=== PATIENT | male | born 1955 | race Caucasian/White ===

== ENCOUNTER 2016-06-27 15:00 | Outpatient (RCR) | payer BC | END 2016-07-16 | disposition home or self-care (01) | LOC: M OUTALCOH 15:00 | PROVIDERS: ATTEND Psychiatry & Neurology Psychiatry | DX: F10.20 Alcohol dependence, uncomplicated (principal) ==

== ENCOUNTER → 2016-08-29 | Outpatient (CLI) | payer BC ==
--- NOTE | 2016-08-30 04:21 | REP ---
Clinical: Lung screening. Technique: Axial low-dose noncontrast imaging from the thoracic inlet to the upper abdomen obtained and viewed in lung window settings only. Comparison: none. Findings: The bilateral lung spivey are symmetric, well aerated and relatively clear. Mild bibasilar scarring and subtle bronchiectasis noted. No significant pulmonary parenchymal consolidation, nodule or mass lesion appreciated. No obvious pleural effusion/reaction. Impression: Mild bibasilar scarring and bronchiectasis. No suspicious findings. Signed by Rl Montenegro MD 08/30/2016 04:13 A
== END ==
LOC: M RAD 12:00
PROVIDERS: ATTEND Emergency Medicine
DX: Z87.891 Personal history of nicotine dependence (principal); J47.9 Bronchiectasis, uncomplicated

== ENCOUNTER → 2016-10-30 | Outpatient (CLI) | payer BC | LOC: M OUTALCOH 08:05 | PROVIDERS: ATTEND Psychiatry & Neurology Psychiatry | DX: F10.20 Alcohol dependence, uncomplicated (principal) ==

== ENCOUNTER 2016-11-07 09:00 | Outpatient (RCR) | payer BC | END 2016-11-13 | LOC: M OUTALCOH 09:00 | PROVIDERS: ATTEND Psychiatry & Neurology Psychiatry | DX: F10.20 Alcohol dependence, uncomplicated (principal) ==

== ENCOUNTER 2016-12-12 14:00 | Outpatient (RCR) | payer BC | END 2016-12-13 | LOC: M OUTALCOH 14:00 | PROVIDERS: ATTEND Psychiatry & Neurology Psychiatry | DX: F10.20 Alcohol dependence, uncomplicated (principal) ==

== ENCOUNTER → 2017-01-13 | Outpatient (RCR) | payer BC, MEDICAID, OTHER | LOC: M OUTALCOH 12-30 15:08 | PROVIDERS: ATTEND Psychiatry & Neurology Psychiatry | DX: F10.20 Alcohol dependence, uncomplicated (principal) ==

== ENCOUNTER 2017-02-12 15:00 | Outpatient (RCR) | payer MEDICAID | END 2017-02-13 | LOC: M OUTALCOH 15:00 | PROVIDERS: ATTEND Psychiatry & Neurology Psychiatry | DX: F10.20 Alcohol dependence, uncomplicated (principal) ==

== ENCOUNTER 2017-03-13 13:00 | Outpatient (RCR) | payer MEDICAID, OTHER | END 2017-03-15 | LOC: M OUTALCOH 13:00 | PROVIDERS: ATTEND Psychiatry & Neurology Psychiatry | DX: F10.20 Alcohol dependence, uncomplicated (principal) ==

== ENCOUNTER 2017-05-12 16:00 | Outpatient (RCR) | payer MEDICAID | END 2017-05-15 | LOC: M OUTALCOH 16:00 | PROVIDERS: ATTEND Psychiatry & Neurology Psychiatry | DX: F10.20 Alcohol dependence, uncomplicated (principal) ==

== ENCOUNTER 2017-05-19 14:50 | Outpatient (RCR) | payer MEDICAID, OTHER | END 2017-06-15 | LOC: M OUTALCOH 14:50 | DX: F10.20 Alcohol dependence, uncomplicated (principal) ==

== ENCOUNTER 2017-06-18 10:43 | Outpatient (RCR) | payer MEDICAID | END 2017-07-16 | LOC: M OUTALCOH 07-16 15:00 | DX: F10.20 Alcohol dependence, uncomplicated (principal) ==

== ENCOUNTER → 2017-07-10 | Outpatient (CLI) | payer OTHER | LOC: M RAD 11:58 | DX: M79.621 Pain in right upper arm (principal) | CPT/HCPCS: 76882 ==

== ENCOUNTER 2017-07-30 15:00 | Outpatient (RCR) | payer OTHER | END 2017-08-13 | LOC: M OUTALCOH 08-07 10:00 | DX: F10.20 Alcohol dependence, uncomplicated (principal) ==

== ENCOUNTER → 2017-08-22 | Outpatient (REF) | payer OTHER ==
[2017-08-22 12:35] LABS: BASO % 0.7 % (0.0-1.0); EOS # 0.1 10^3/uL (0.0-0.50); EOS % 2.9 % (0.0-3.0); HEMATOCRIT 40.6 % (42.0-52.0); HEMOGLOBIN 13.6 g/dl (14.0-18.0); LYMPH # 1.1 10^3/uL (1.5-4.5); LYMPH % 41.3 % (24.0-44.0); MEAN CORPUSCULAR HEMOGLOBIN 30.7 pg (27.0-33.0); MEAN CORPUSCULAR HGB CONC 33.5 g/dl (32.0-36.5); MEAN CORPUSCULAR VOLUME 91.6 fl (80.0-96.0); MONO # 0.3 10^3/uL (0.0-0.8); MONO % 10.1 % (0.0-5.0); NEUTROPHILS # 1.2 10^3/uL (1.8-7.7); PLATELET COUNT, AUTOMATED 105 10^3/uL (150-450); RED BLOOD COUNT 4.43 10^6/uL (4.30-6.10); RED CELL DISTRIBUTION WIDTH 13.9 % (11.5-14.5); WHITE BLOOD COUNT 2.8 10^3/uL (4.0-10.0)
[2017-08-22 13:06] LABS: ALBUMIN 3.9 GM/DL (3.2-5.2); ALBUMIN/GLOBULIN RATIO 1.15 (1.00-1.93); ALKALINE PHOSPHATASE 75 U/L (45-117); ALT/SGPT 16 U/L (12-78); ANION GAP 6 MEQ/L (8-16); AST/SGOT 13 U/L (7-37); BILIRUBIN,TOTAL 0.7 MG/DL (0.2-1.0); BLOOD UREA NITROGEN 15 MG/DL (7-18); CALCIUM LEVEL 8.5 MG/DL (8.8-10.2); CARBON DIOXIDE LEVEL 27 MEQ/L (21-32); CHLORIDE LEVEL 109 MEQ/L (98-107); CHOLESTEROL LEVEL 216 MG/DL (<200); CHOLESTEROL RISK RATIO 5.684 (<5); CREATININE FOR GFR 0.83 MG/DL (0.70-1.30); GLOMERULAR FILTRATION RATE > 60.0 (>49); GLUCOSE, FASTING 93 MG/DL (70-100); HDL CHOLESTEROL 38 MG/DL (>40); LDL CHOLESTEROL 118.4 MG/DL (<100); NON-HDL-C 178 MG/DL; POTASSIUM SERUM 4.4 MEQ/L (3.5-5.1); SODIUM LEVEL 142 MEQ/L (136-145); TOTAL PROTEIN 7.3 GM/DL (6.4-8.2); TRIGLYCERIDES LEVEL 298 MG/DL (<150)
== END ==
LOC: M LABDRAW1 09:54
DX: J30.9 Allergic rhinitis, unspecified (principal)

== ENCOUNTER 2017-09-12 10:27 | Outpatient (RCR) | payer OTHER | END 2017-09-13 | LOC: M OUTALCOH 10:27 | DX: F10.20 Alcohol dependence, uncomplicated (principal) ==

== ENCOUNTER → 2017-09-29 | Outpatient (REF) | payer OTHER ==
[2017-09-29 10:35] LABS: RETIC HEMOGLOBIN EQUIVALENT 35.4 pg (24-36); RETICULOCYTE # 57.8 10^9/L (17-77); RETICULOCYTE % 1.4 % (0.5-1.5)
[2017-09-29 10:38] LABS: SLIDE REVIEW Report; SOURCE PERIPHERAL SMEAR
[2017-09-29 10:48] LABS: INR 0.93; PROTHROMBIN TIME 12.5 SECONDS (12.4-14.5)
[2017-09-29 10:49] LABS: PARTIAL THROMBOPLASTIN TIME 28.7 SECONDS (26.8-37.9)
[2017-09-29 10:51] LABS: URIC ACID 5.3 MG/DL (3.5-7.2)
[2017-09-29 10:56] LABS: HEPATITIS B SURFACE ANTIBODY NEGATIVE (POSITIVE); VITAMIN B12 LEVEL 372 PG/ML
[2017-09-29 11:06] LABS: HEPATITIS B SURFACE ANTIGEN NEGATIVE (NEGATIVE)
[2017-09-29 11:35] LABS: HEPATITIS B CORE ANTIBODY IGM NEGATIVE (NEGATIVE); HIV 1&2 SCREEN CENTAUR NEGATIVE (NEGATIVE)
== END ==
LOC: M LAB REF 09:50
DX: D61.818 Other pancytopenia (principal)

== ENCOUNTER → 2017-10-01 | Outpatient (CLI) | payer OTHER | LOC: M RAD 07:06 | DX: D61.818 Other pancytopenia (principal); R16.1 Splenomegaly, not elsewhere classified ==

== ENCOUNTER 2017-10-16 11:17 | Outpatient (RCR) | payer OTHER | END 2017-11-13 | LOC: M OUTALCOH 11:17 | DX: F10.20 Alcohol dependence, uncomplicated (principal) ==

== ENCOUNTER 2017-11-27 14:46 | Outpatient (RCR) | payer OTHER | END 2017-12-13 | LOC: M OUTALCOH 14:46 | DX: F10.20 Alcohol dependence, uncomplicated (principal) ==

== ENCOUNTER 2018-02-27 10:30 | Outpatient (RCR) | payer OTHER | END 2018-03-15 | LOC: M OUTALCOH 10:30 | DX: F10.20 Alcohol dependence, uncomplicated (principal) ==

== ENCOUNTER → 2018-12-14 | Outpatient (CLI) | payer OTHER ==
--- NOTE | 2018-12-14 08:28 | REP ---
Clinical: Lung screening. History of nicotine dependence. Comparison: 08/29/2016 Technique: Axial low-dose noncontrast images from the thoracic inlet to the upper abdomen using lung screening technique. Findings: The lung spivey are well-aerated and mild scattered chronic stable changes are again appreciated. There is a new 7 mm non solid density along the lateral subpleural right lower lobe (image 72) which is nonspecific but represents a change from prior examination. No pleural effusion/reaction or pneumothorax. Tracheobronchial tree is patent. Mediastinum demonstrates mild atherosclerotic changes of the coronary arteries without cardiomegaly. Impression: Lung-RADS category III. New 7 mm non solid right lower lobe density. Management recommendations include 6-month follow-up low-dose CT examination with a probability of malignancy at 1-2%. Electronically Signed by Rl Montenegro MD 12/14/2018 08:20 A
== END ==
LOC: M RAD 07:46
PROVIDERS: ATTEND Physician Assistant
DX: F17.210 Nicotine dependence, cigarettes, uncomplicated (principal); R91.1 Solitary pulmonary nodule

== ENCOUNTER → 2019-08-19 | Outpatient (REF) | payer OTHER ==
[2019-08-19 17:49] LABS: INR 1.11; PARTIAL THROMBOPLASTIN TIME 28.7 SECONDS (25.0-38.4)
== END ==
LOC: M LAB REF 17:01
PROVIDERS: ATTEND Internal Medicine Pulmonary Disease
DX: R91.1 Solitary pulmonary nodule (principal)

== ENCOUNTER → 2019-08-22 | Outpatient (CLI) | payer OTHER ==
[2019-08-22 11:49] LABS: PLATELET COUNT, AUTOMATED 114 10^3/uL (150-450)
== END ==
LOC: M LAB 11:32
PROVIDERS: ATTEND Internal Medicine Pulmonary Disease
DX: R91.1 Solitary pulmonary nodule (principal)

== ENCOUNTER → 2019-08-26 | Outpatient (CLI) | payer OTHER ==
[~2019-08-26] MED LIST: ALBU83IN NEB; ASPI81TA85 PO; BAYE325T13 PO; BREO1INH INH; INCR1INH INH; LEVOTAB10 PO; NAPR-885 PO; TRAZ-252 PO
--- NOTE | 2019-08-26 14:04 | PFTRPT ---
Site: [facility], [address] [place], [address] ID: [id number] Name: HEIDI KINCAID Visit Date: 08/26/2019 Second ID: [id number] Referring Doctor: Danielle JI, Roberto Morse Reviewing Doctor: Palomo Martinez MD Ag Service Manager: Raymon PELLETIER, IRAJ Age: 64 : 1955 Sex: Male Race: Height: 66.00 Inches Weight: 155.00 Lbs BSA: 1.79 Order IDs: [id number] Requested Test(s): <RESP-PFT.PFT B/A> Diagnosis: J44.9 test appear to be valid, although the ATS standard for "end of test" was not met. Pt was given four puffs of albuterol for postbronchodilator. Review Status: Not Reviewed Pre-Bronch Post-Bronch Pred Actual %Pred Actual %Chng SPIROMETRY FVC (L) 3.97 3.50 88 3.34 -4 FEV1 (L) 2.96 2.26 76 2.27 FEV1/FVC (%) 75 64 85 68 5 FEF 25% (L/sec) 6.53 4.19 64 4.61 9 FEF 50% (L/sec) 4.14 1.42 34 1.55 9 FEF 75% (L/sec) 1.16 0.39 33 0.34 -14 FEF 25-75% (L/sec) 2.38 1.19 49 1.08 -8 FEF Max (L/sec) 7.99 5.57 69 6.01 7 FIVC (L) 3.24 3.26 FIF 50% (L/sec) 4.60 5.02 109 6.73 34 FIF Max (L/sec) 5.03 6.84 36 MVV (L/min) 121 90 74 Expiratory Time (sec) 9.07 7.62 -16 Back Extrap Vol (L) 0.11 0.11 -1 Time To FEFmax (sec) 0.128 0.102 -20 LUNG VOLUMES SVC (L) 4.08 3.55 87 IC (L) 3.00 2.79 93 ERV (L) 1.08 0.76 70 TGV (L) 3.20 4.19 131 RV (Pleth) (L) 2.12 3.44 162 TLC (Pleth) (L) 6.20 6.99 112 RV/TLC (Pleth) (%) 34 49 144 DIFFUSION DLCOunc (ml/min/mmHg) 25.72 19.69 76 DLCOcor (ml/min/mmHg) 25.72 20.90 81 DL/VA (ml/min/mmHg/L) 4.15 4.11 99 VA (L) 6.20 5.08 81 BHT (sec) 10.64 IVC (L) 3.23 TLC (SB) (L) 5.23 AIRWAYS RESISTANCE Raw (cmH2O/L/s) 1.45 1.30 89 Gaw (L/s/cmH2O) 1.03 0.77 75 sRaw (cmH2O*s) 4.76 5.94 124 sGaw (1/cmH2O*s) 0.20 0.17 85 BLOOD GASES Hgb (gm/dL) 12.7
== END ==
LOC: M CARPUL 13:10
PROVIDERS: ATTEND Internal Medicine Pulmonary Disease
DX: J44.9 Chronic obstructive pulmonary disease, unspecified (principal)

== ENCOUNTER → 2019-08-27 | Outpatient (CLI) | payer OTHER ==
[~2019-08-27] MED LIST changes: +LIDOCAINE 1% MDV 20ML VIAL As Ordered ONE
--- NOTE | 2019-08-27 10:19 | REP ---
Chest x-ray: Single expiratory PA view. History: Status post CT guided needle biopsy right lung nodule. Comparison study September 02, 2006. Comparison chest CT study August 03, 2019. Findings: There is a very small post biopsy right sided pneumothorax. Approximately 5-10%. The soft tissue nodule is seen at the right base which is what is felt to be the target nodule. No hydrothorax is seen. Oxygen delivery tubing is noted. The patient is status post lower cervical spine fusion. Impression: 5-10% right-sided pneumothorax post CT guided needle biopsy procedure. Follow-up chest x-ray in 2 hours. Electronically Signed by Tyler Adames MD 08/27/2019 10:10 A
[2019-08-27 12:30] VITALS: BP 133/81
--- NOTE | 2019-08-27 13:10 | REP ---
Follow-up chest x-ray: PA view. 12:25 p.m. film History: Small post biopsy right sided pneumothorax for follow-up. Comparison study 10:04 a.m. on this date. Findings: A 5-10% the right-sided pneumothorax is again seen. This is slightly improved at the apex and felt to be unchanged where is visualized laterally. No new infiltrate is seen. No other abnormality. Impression: Small right-sided pneumothorax post biopsy unchanged from the film to half hours earlier. Electronically Signed by Tyler Adames MD 08/27/2019 01:02 P
--- NOTE | 2019-08-27 16:08 | REP ---
CT-guided right lower lobe lung biopsy The procedure is performed by MARILOU Alan, under the direct supervision of Dr. Adames. The risks and benefits of the procedure were explained to the patient and informed consent was obtained both orally and written. Directly prior to the start of the procedure, a formal timeout was done in the exam room. The right lower lobe lung nodule was localized using CT guidance. Skin was prepped and draped in the usual sterile fashion. 3 ml of 1% lidocaine 10 mg/ml was used as a local anesthetic. Using CT guidance a 19/20 gauge coaxial needle biopsy system was inserted and advanced into the nodule. 1 core biopsy samples was obtained and sent to the lab. Another set CT images were obtained revealing that the patient had a pneumothorax, and the procedure was aborted. The patient was followed with serial chest x-rays and monitored closely. After the appropriate amount of monitored convalescence the patient was still asymptomatic and discharged from the department with instructions that if anything should changed to go directly to the emergency room. Reviewed by MARILOU Davila 08/27/2019 02:50 P Electronically Signed by Tyler Adames MD 08/27/2019 03:58 P
== END ==
LOC: M IRPRO 08:03
PROVIDERS: ATTEND Internal Medicine Pulmonary Disease
DX: R91.1 Solitary pulmonary nodule (principal)

== ENCOUNTER → 2019-10-26 | Outpatient (CLI) | payer OTHER ==
[~2019-10-26] MED LIST changes: -LIDOCAINE 1% MDV 20ML VIAL As Ordered ONE
--- NOTE | 2019-10-27 10:16 | REP ---
PET/CT: HISTORY: Solitary pulmonary nodule. COMPARISONS: Comparison CT study of the chest August 03, 2019. TECHNIQUE: 56 minutes following the intravenous injection of a 8.67 mCi dose of F-18 FDG, three-dimensional PET scintigraphy is acquired from the skull base to the proximal thighs. Triplanar noncontrast CT scanning is acquired through the same anatomic range for attenuation correction, and image registration with scan parameters optimized to minimize radiation exposure to the patient. PET scintigraphy and CT datasets were fused and displayed on a workstation with multiplanar and projection display capability. PET/CT FINDINGS: There is no abnormal hypermetabolic uptake in the head and neck soft tissues. There is a focus of increased uptake centered on the left anterior mandible where there is a small radiolucency associated with a mandibular tooth. Maximum standard uptake value here is 9.72. This is felt to be compatible with dental or periodontal disease. The right lower lobe pulmonary nodule which has been seen on recent chest CT study is noted to be hypermetabolic. Maximum standard uptake value in this right lower lobe pulmonary nodule is 7.35. There is no abnormal hilar or mediastinal hypermetabolic uptake. No other abnormal parenchymal hypermetabolic uptake is seen. No other nodule is seen. No abnormal adrenal uptake is observed. In the abdomen and pelvis, there is normal distribution of tracer to the liver, spleen, gastrointestinal, and genitourinary tracts. No abnormal abdominal or pelvic hypermetabolic uptake is seen. There is some vascular calcification. The patient is status post cervical spine fusion. There is normal variant skeletal muscle uptake about the hips. IMPRESSION: The right lower lobe pulmonary nodule is hypermetabolic and suspicious for malignancy. There is a focus of increased uptake in the left mandible which is believed to be associated with a dental or periodontal process. Clinical correlation suggested. Otherwise negative PET scintigraphy. Electronically Signed by Tyler Adames MD 10/27/2019 10:58 A
== END ==
LOC: M PLARAD 14:27
PROVIDERS: ATTEND Internal Medicine Pulmonary Disease
DX: R91.1 Solitary pulmonary nodule (principal)
CPT/HCPCS: 78815; A9552

== ENCOUNTER → 2019-12-08 | Outpatient (CLI) | payer OTHER ==
[~2019-12-08] MED LIST changes: +ATOR40TA75 PO; +PERCOCET PO
[2019-12-08 14:06] LABS: ABG BASE EXCESS -0.2 (-2.0-2.0); ABG HCO3 23.6 MEQ/L (22.0-26.0); ABG O2 SATURATION 97.3 % (95.0-99.0); ABG PARTIAL PRESSURE CO2 35.6 mmHg (35.0-45.0); ABG PARTIAL PRESSURE O2 93.2 mmHg (75.0-100.0); ABG STANDARD HCO3 24.4 MEQ/L (22.0-26.0); ABG TOTAL CO2 24.7 MEQ/L (23.0-31.0); ABG pH (ARTERIAL) 7.439 UNITS (7.350-7.450)
[2019-12-08 14:24] LABS: INR 1.17; PROTHROMBIN TIME 14.6 SECONDS (11.8-14.0)
[2019-12-08 14:31] LABS: BLOOD UREA NITROGEN 16 MG/DL (7-18); CALCIUM LEVEL 8.6 MG/DL (8.8-10.2); CARBON DIOXIDE LEVEL 28 MEQ/L (21-32); CHLORIDE LEVEL 106 MEQ/L (98-107); CREATININE FOR GFR 0.97 MG/DL (0.70-1.30); GLOMERULAR FILTRATION RATE > 60.0 (>49); GLUCOSE, FASTING 92 MG/DL (70-100); POTASSIUM SERUM 4.4 MEQ/L (3.5-5.1); SODIUM LEVEL 137 MEQ/L (136-145)
[2019-12-08 14:46] LABS: APPEARANCE, URINE CLOUDY (CLEAR); BACTERIA, URINE AUTO NEGATIVE (NEGATIVE); BILIRUBIN, URINE AUTO NEGATIVE (NEGATIVE); BLOOD, URINE BLOOD NEGATIVE (NEGATIVE); COLOR, URINE YELLOW (YELLOW); GLUCOSE, URINE (UA) AUTO NEGATIVE (NEGATIVE); KETONE, URINE AUTO NEGATIVE (NEGATIVE); LEUKOCYTE ESTERASE, URINE AUTO NEGATIVE (NEGATIVE); NITRITE, URINE AUTO NEGATIVE (NEGATIVE); PROTEIN, URINE AUTO NEGATIVE (NEGATIVE); RBC, URINE AUTO 1 /HPF (0-3); SQUAMOUS EPITHELIAL CELL UR AU 0 /HPF (0-6); WBC, URINE AUTO 0 /HPF (0-3)
[2019-12-08 15:05] LABS: HEMATOCRIT 37.8 % (42.0-52.0); HEMOGLOBIN 12.7 g/dl (13.5-17.5); MEAN CORPUSCULAR HEMOGLOBIN 33.7 pg (27.0-33.0); MEAN CORPUSCULAR HGB CONC 33.6 g/dl (32.0-36.5); MEAN CORPUSCULAR VOLUME 100.3 fl (80.0-96.0); PLATELET COUNT, AUTOMATED 118 10^3/uL (150-450); RED BLOOD COUNT 3.77 10^6/uL (4.30-6.10); WHITE BLOOD COUNT 2.8 10^3/uL (4.0-10.0)
== END ==
LOC: EDSTATUS 13:00 → M ADMPAT 13:06
PROVIDERS: ATTEND Thoracic Surgery (Cardiothoracic Vascular Surgery)
DX: R91.8 Other nonspecific abnormal finding of lung field (principal)

== ENCOUNTER → 2019-12-11 | Outpatient (CLI) | payer OTHER | LOC: M LABSMTC 08:24 | PROVIDERS: ATTEND Anesthesiology | DX: Z11.59 Encounter for screening for other viral diseases (principal); Z03.89 Encounter for observation for other suspected diseases and conditions ruled out | CPT/HCPCS: C9803; U0003 ==

== ENCOUNTER 2019-12-14 07:00 | Inpatient (IN) | payer OTHER ==
--- NOTE | 2019-12-08 15:08 | REP ---
Chest x-ray: Two views. History: Lung lesion. Comparison chest x-ray: August 27, 2019. Findings: Nipple silhouettes project bilaterally. There is a nodular opacity in the right base unchanged measuring 12-13 mm. The previously noted right-sided pneumothorax has resolved. The lungs are overall hyperinflated as before. Heart is not enlarged. The cervical spine fusion plating is noted in place. Impression: Hyperinflation, COPD. Right lung base nodule. Electronically Signed by Tyler Adames MD 12/08/2019 02:59 P
--- NOTE | 2019-12-09 18:48 | ECGEPIP ---
[facility] Test Date: 2019-12-08 Pat Name: HEIDI KINCAID Department: Room: - Gender: Male Mobile Architect: : 1955 Requested By: Brendan Anderson Order Number: [id number] Reading MD: Angel Cast Measurements Intervals [place] Rate: 70 P: 78 [place]: 182 QRS: 50 QRSD: 85 T: 66 QT: 391 QTc: 424 Interpretive Statements SINUS RHYTHM POSSIBLE PRIOR SEPTAL INFARCT No prior tracing in the system Electronically Signed on 12-09-2019 18:47:57 EDT by Angel Cast
[~2019-12-14] VITALS: Ht 167.6 cm; Wt 68.9 kg
[2019-12-14] VITALS (14 sets, daily range): BP systolic 78–130; BP diastolic 40–68
[~2019-12-14 07:00] MED LIST changes: -ASPI81TA85 PO; +ASPI81TA86 PO; +LIDOCAINE 1% MDV 20ML VIAL SQ PRN; +LR 1,000 ML IV ONE; -PERCOCET PO
[2019-12-14] MEDS ORDERED: BUPIVACAINE LIPOSOME/PF 1.3% 20ML VIAL (13.3MG/ML)(EXPAREL)(C9290 PER1MG) As Ordered ONE (07:38)
[2019-12-14] MEDS ORDERED: BUPIVACAINE HCL 0.5% 30 ML VIAL As Ordered ONE (07:38)
[2019-12-14] MEDS ORDERED: CETACAINE SPRAY 5GM As Ordered ONE ×2 (07:38→09:43)
[2019-12-14] MEDS ORDERED: MUPIROCIN 2% OINT 22 GM TUBE TOP ONE (07:45)
[2019-12-14] MEDS ORDERED: ceFAZolin SOD 2 GM in IV 1 EA IV ONE (07:45)
[2019-12-14] MEDS ORDERED: MIDAZOLAM INJ 2MG/2ML VIAL (J2250 PER 1MG) As Ordered ONE ×2 (08:17→08:49)
[2019-12-14] MEDS ORDERED: fentaNYL 100 MCG/2 ML INJECTION (J3010) As Ordered ONE (08:17)
[2019-12-14] MEDS ORDERED: MIDAZOLAM INJ 2MG/2ML VIAL (J2250 PER 1MG) IV ONE (08:45)
[2019-12-14] MEDS ORDERED: fentaNYL 100 MCG/2 ML INJECTION (J3010) IV ONE (08:45)
[2019-12-14] MEDS ORDERED: fentaNYL 250 MCG/5 ML INJECTION (J3010) As Ordered ONE (08:49)
[2019-12-14] MEDS ORDERED: LIDOCAINE 2% 100MG/5ML SDV (FOR ANES.) As Ordered ONE (08:51)
[2019-12-14] MEDS ORDERED: propofoL 200 MG/20 ML VIAL As Ordered ONE (08:51)
[2019-12-14] MEDS ORDERED: dexameTHASONE 4 MG/ML 1ML VIAL (J1100 PER 1MG) As Ordered ONE (08:51)
[2019-12-14] MEDS ORDERED: ROCURONIUM BROMIDE 50 MG/5 ML VIAL As Ordered ONE ×4 (08:51→13:35)
[2019-12-14] MEDS ORDERED: METOCLOPRAMIDE INJ 10MG/2ML VIAL (J2765 PER 1) IV PRN (09:00)
[2019-12-14] MEDS ORDERED: NALOXONE INJ 0.4MG/1ML VIAL (J2310 PER 1MG) IV PRN (09:00)
[2019-12-14] MEDS ORDERED: EPIDURAL/PCA KEYS XX PRN (09:00)
[2019-12-14] MEDS ORDERED: WALLBOXKEY XX PRN (09:00)
[2019-12-14] MEDS ORDERED: diphenhydrAMINE 50MG/ML VIAL (J1200) IV PRN (09:00)
[2019-12-14] MEDS ORDERED: ONDANSETRON 4MG/2ML VIAL IV PRN ×2 (09:00→15:00)
[2019-12-14] MEDS ORDERED: BUPIVACAINE HCL 0.25% 30ML VIAL As Ordered ONE (09:02)
[2019-12-14] MEDS ORDERED: PHENYLephrine HCL 500 MCG/5 ML (100MCG/ML) SYRINGE (J2370) As Ordered ONE ×4 (09:35→14:13)
[2019-12-14] MEDS ORDERED: ePHEDrine SULFATE 25 MG/5 ML(5MG/ML) SYRINGE As Ordered ONE ×2 (09:35→10:29)
[2019-12-14] MEDS ORDERED: HYDROmorphone HCL 2 MG/ML 1ML VIAL (J1170) As Ordered ONE (10:11)
[2019-12-14] MEDS ORDERED: METOCLOPRAMIDE INJ 10MG/2ML VIAL (J2765 PER 1) As Ordered ONE (10:26)
[2019-12-14] MEDS ORDERED: ONDANSETRON 4MG/2ML VIAL As Ordered ONE (10:26)
[2019-12-14] MEDS ORDERED: SUGAMMADEX SODIUM 500 MG/5 ML VIAL (BRIDION) As Ordered ONE (10:26)
[2019-12-14] MEDS ORDERED: ACETAMINOPHEN 1000MG 100ML IV BTL (OFIRMEV) (J0131 PER 10MG) As Ordered ONE (10:27)
[2019-12-14] MEDS ORDERED: ACETAMINOPHEN TAB 650MG DOSE (2X325MG) PO PRN (14:15)
[2019-12-14] MEDS ORDERED: PERCOCET 5MG/325MG TAB PO PRN (14:15)
[2019-12-14] MEDS ORDERED: LEVALBUTEROL 1.25 MG/0.5 ML CONCENTRATE NEB NEB PRN (14:15)
[2019-12-14] MEDS ORDERED: NORCO, ANEXSIA 5/325MG TABLET (HYDROcodone/ACETAMINOPHEN) PO PRN (14:15)
[2019-12-14] MEDS ORDERED: BISACODYL 10 MG SUPP PR PRN (14:15)
[2019-12-14] MEDS: FENTANYL/BUPIVACAINE/NACL BAG 250 ML EPIDURAL SCH (14:32)
[2019-12-14] MEDS ORDERED: fentaNYL 100 MCG/2 ML INJECTION (J3010) IV PRN (15:00)
[2019-12-14] MEDS ORDERED: oxyCODONE 5MG TAB PO PRN (15:00)
[2019-12-14] MEDS ORDERED: HYDROMORPHONE HCL 0.5 MG/ 0.5 ML SYRINGE (J1170 PER 1) IV PRN (15:00)
[2019-12-14] MEDS ORDERED: LR 1,000 ML IV SCH (15:00)
[2019-12-14] MEDS: KCL 20MEQ IN D5/NS 1000ML 1,000 ML IV SCH (15:08)
--- NOTE | 2019-12-14 15:08 | REP ---
Clinical: Status post right lower lobectomy. Comparison: 12/08/2019. Findings: Two right-sided chest tubes and postsurgical changes are appreciated including small amount of right-sided subcutaneous emphysema. No focal consolidation. No effusion. No obvious pneumothorax. Mediastinum and cardiac silhouette are relatively normal. Skeletal structures are intact. Impression: Postsurgical changes involving the right hemithorax. Electronically Signed by Rl Montenegro MD 12/14/2019 02:59 P
[2019-12-14 15:10] LABS: ABG BASE EXCESS -3.3 (-2.0-2.0); ABG HCO3 23.2 MEQ/L (22.0-26.0); ABG O2 SATURATION 92.5 % (95.0-99.0); ABG PARTIAL PRESSURE CO2 47.2 mmHg (35.0-45.0); ABG PARTIAL PRESSURE O2 71.3 mmHg (75.0-100.0); ABG STANDARD HCO3 21.6 MEQ/L (22.0-26.0); ABG TOTAL CO2 24.7 MEQ/L (23.0-31.0)
[2019-12-14 15:12] LABS: BASO % 0.4 % (0.0-1.0); HEMATOCRIT 41.2 % (42.0-52.0); HEMOGLOBIN 13.8 g/dl (13.5-17.5); LYMPH # 0.3 10^3/uL (1.5-5.0); MEAN CORPUSCULAR HEMOGLOBIN 33.5 pg (27.0-33.0); MEAN CORPUSCULAR HGB CONC 33.5 g/dl (32.0-36.5); MONO # 0.1 10^3/uL (0.0-0.8); MONO % 3.4 % (0.0-5.0); NEUTROPHILS # 2.2 10^3/uL (1.5-8.5); NEUTROPHILS % 82.8 % (36.0-66.0); PLATELET COUNT, AUTOMATED 121 10^3/uL (150-450); RED BLOOD COUNT 4.12 10^6/uL (4.30-6.10); WHITE BLOOD COUNT 2.6 10^3/uL (4.0-10.0)
[2019-12-14 15:43] LABS: BLOOD UREA NITROGEN 11 MG/DL (7-18); CALCIUM LEVEL 9.5 MG/DL (8.8-10.2); CARBON DIOXIDE LEVEL 25 MEQ/L (21-32); CHLORIDE LEVEL 108 MEQ/L (98-107); CREATININE FOR GFR 1.01 MG/DL (0.70-1.30); GLOMERULAR FILTRATION RATE > 60.0 (>49); GLUCOSE, FASTING 163 MG/DL (70-100); POTASSIUM SERUM 4.7 MEQ/L (3.5-5.1); SODIUM LEVEL 138 MEQ/L (136-145)
[2019-12-14] MEDS: KETOROLAC 30 MG/ML 1ML VIAL IV SCH ×2 (15:50→20:38)
[2019-12-14] MEDS: ceFAZolin SOD 1 GM in D5W MINI-BAG PLUS 50 ML IV SCH (17:43)
[2019-12-14] MEDS: LEVALBUTEROL 1.25 MG/0.5 ML CONCENTRATE NEB NEB SCH (20:00)
[2019-12-14] MEDS: traZODone 50 MG TAB PO SCH (20:37)
[2019-12-14] MEDS: DOCUSATE SODIUM 100 MG CAP PO SCH (20:37)
[2019-12-14] MEDS: HEPARIN SOD (PORCINE) 5000UNITS/ML 1ML VIAL/SYRINGE SC SCH (20:38)
[2019-12-14] MEDS ORDERED: NS 500 ML IV ONE (22:15)
[2019-12-14] MEDS ORDERED: PHENYLEPHRINE HCL INJ 50 MG in D5W 495 ML IV SCH (23:15)
[2019-12-14 23:43] LABS: HEMATOCRIT 32.3 % (42.0-52.0); MEAN CORPUSCULAR HEMOGLOBIN 33.7 pg (27.0-33.0); MEAN CORPUSCULAR HGB CONC 33.7 g/dl (32.0-36.5); PLATELET COUNT, AUTOMATED 101 10^3/uL (150-450); RED BLOOD COUNT 3.23 10^6/uL (4.30-6.10); WHITE BLOOD COUNT 3.1 10^3/uL (4.0-10.0)
[2019-12-14 23:49] LABS: HEMOGLOBIN 10.9 g/dl (13.5-17.5)
[2019-12-15] VITALS (63 sets, daily range): BP systolic 100–143; BP diastolic 52–82
[2019-12-15] MEDS: LEVALBUTEROL 1.25 MG/0.5 ML CONCENTRATE NEB NEB SCH ×4 (01:41→19:12)
[2019-12-15] MEDS: ceFAZolin SOD 1 GM in D5W MINI-BAG PLUS 50 ML IV SCH ×3 (01:56→17:08)
[2019-12-15] MEDS: KETOROLAC 30 MG/ML 1ML VIAL IV SCH ×4 (01:57→20:19)
[2019-12-15] MEDS ORDERED: NS 500 ML IV ONE (02:15)
[2019-12-15] MEDS: KCL 20MEQ IN D5/NS 1000ML 1,000 ML IV SCH (02:26)
[2019-12-15 05:18] LABS: BASO % 0.2 % (0.0-1.0); HEMOGLOBIN 11.3 g/dl (13.5-17.5); LYMPH # 1.4 10^3/uL (1.5-5.0); LYMPH % 32.7 % (24.0-44.0); MEAN CORPUSCULAR HEMOGLOBIN 33.8 pg (27.0-33.0); MEAN CORPUSCULAR HGB CONC 33.2 g/dl (32.0-36.5); MEAN CORPUSCULAR VOLUME 101.8 fl (80.0-96.0); MONO # 1.1 10^3/uL (0.0-0.8); MONO % 24.4 % (0.0-5.0); NEUTROPHILS # 1.8 10^3/uL (1.5-8.5); NEUTROPHILS % 42.5 % (36.0-66.0); RED BLOOD COUNT 3.34 10^6/uL (4.30-6.10); WHITE BLOOD COUNT 4.3 10^3/uL (4.0-10.0)
[2019-12-15 05:26] LABS: PLATELET COUNT, AUTOMATED 117 10^3/uL (150-450)
[2019-12-15 05:39] LABS: BLOOD UREA NITROGEN 12 MG/DL (7-18); CALCIUM LEVEL 7.7 MG/DL (8.8-10.2); CARBON DIOXIDE LEVEL 26 MEQ/L (21-32); CHLORIDE LEVEL 109 MEQ/L (98-107); CREATININE FOR GFR 0.71 MG/DL (0.70-1.30); GLOMERULAR FILTRATION RATE > 60.0 (>49); GLUCOSE, FASTING 123 MG/DL (70-100); POTASSIUM SERUM 4.2 MEQ/L (3.5-5.1); SODIUM LEVEL 139 MEQ/L (136-145)
[2019-12-15 05:55] LABS: ABG BASE EXCESS -2.9 (-2.0-2.0); ABG HCO3 20.9 MEQ/L (22.0-26.0); ABG O2 SATURATION 98.1 % (95.0-99.0); ABG PARTIAL PRESSURE CO2 33.1 mmHg (35.0-45.0); ABG PARTIAL PRESSURE O2 106.7 mmHg (75.0-100.0); ABG STANDARD HCO3 22.1 MEQ/L (22.0-26.0); ABG TOTAL CO2 21.9 MEQ/L (23.0-31.0); ABG pH (ARTERIAL) 7.418 UNITS (7.350-7.450)
[2019-12-15] MEDS: TIOTROPIUM INHALER/CAPSULE (SPIRIVA) INH SCH (07:02)
--- NOTE | 2019-12-15 08:14 | REP ---
Clinical: Status post right lower lobectomy. Comparison: 12/14/2019. Findings: Two right-sided chest tubes and right-sided postsurgical changes are appreciated including moderate amount of subcutaneous emphysema along the right lateral chest wall and thoracic inlet/neck. Underlying right parenchyma appears relatively normal and without obvious consolidation, effusion, or pneumothorax. Mediastinum and cardiac silhouette are normal. Left hemithorax is clear. Impression: Postsurgical changes involving the right hemithorax. Electronically Signed by Rl Montenegro MD 12/15/2019 08:06 A
--- NOTE | 2019-12-15 08:48 | REP ---
Clinical: Status post right lower lobectomy. Technique: PA and lateral. Comparison: 12/14/2019. Findings: Two right-sided chest tubes are in stable position. Moderate subcutaneous emphysema along the right hemithorax may be slightly increased from prior examination. Aerated right lung appears relatively normal and without significant areas of consolidation/atelectasis or pleural effusion. A very small right apical pneumothorax cannot definitively be excluded. Mediastinum and cardiac silhouette are normal. Left hemithorax is relatively clear and without acute consolidation, effusion, or pneumothorax. Skeletal structures are intact. Impression: Postsurgical changes involving the right hemithorax as described above. Electronically Signed by Rl Montenegro MD 12/15/2019 08:39 A
[2019-12-15] MEDS: HEPARIN SOD (PORCINE) 5000UNITS/ML 1ML VIAL/SYRINGE SC SCH ×2 (08:54→20:18)
[2019-12-15] MEDS: ATORVASTATIN 20 MG TAB PO SCH (08:55)
[2019-12-15] MEDS: MOM 30ML SUSPENSION UDC PO SCH (08:55)
[2019-12-15] MEDS: PANTOPRAZOLE 40MG TAB (PROTONIX) PO SCH (09:03)
[2019-12-15] MEDS: DOCUSATE SODIUM 100 MG CAP PO SCH ×2 (09:03→20:17)
--- NOTE | 2019-12-15 10:19 | IPN ---
DATE: 12/15/2019 This is now the first postoperative day for Mr. Weaver who has had a relatively stable night of surgery. He did become hypotensive and he was given both volume and phenylephrine was started to counteract the epidural. Furthermore, epidural was lowered to 6 mL/hr from 10 mL/hr. Today, Mr. Weaver is doing well. He has been weaned off his Leandro-Synephrine and his blood pressure has renormalized. His pain is well controlled with the epidural, although he does complain of some shoulder pain. His vital signs show a Tmax of 98.6, with a heart rate that ranges between 70 and 79 in a sinus rhythm, a respiratory rate of 18-20 without the use of accessory muscles, who was 99% to 100% saturated on 2 liters nasal cannula and 96% saturated now on room air. His blood pressure is ranging between 116/68 to 132/74. Last night, it got down to a low of 86/50. His intake and output the past 24 hours has been recorded as 2830 in and 1032 out for a positivity of 1798 mL. He has taken in 1150 mL in oral intake and 1000 mL in IV. His chest tube has put out 340 mL with his urine output being 517 mL. His weight today is 73 kg compared to 66 kg preoperatively. On physical examination, his lungs show coarse crackles with rhonchi on both sides which do not clear with coughing. Percussion note is full to the diaphragm. There is some palpable subcutaneous emphysema. Cardiac Exam: Without murmurs, clicks, gallops, or rubs. I cannot feel his point of maximal impulse (PMI). S1, S2 are normal. Abdomen: Soft. Nontender. Bowel sounds are positive, but hypoactive. He is tympanitic and slightly distended. There is no hepatomegaly. No costovertebral angle (CVA) tenderness. Extremities: Show no pretibial edema. No calf tenderness. No differential swelling of the upper extremities. Skin: Warm, dry and perfused. Without cyanosis or mottling, including that of the nail beds and knees. Neck: Supple. There is no jugular venous distention. No subcutaneous emphysema. Trachea is midline. Mouth: Shows his mucous membranes to be pink and moist. Lips and commissures are without lesions. There is no thrush. Eyes: Show his pupils to be equal and reactive. Extraocular movements intact. Sclerae nonicteric. Neurologic: Shows II-XII intact along with gross motor and gross sensation intact. Gait is not tested. Psychiatric shows him to be awake, alert, and oriented times three with appropriate mood and affect and conversational. His white count today is 4.3 with hemoglobin and hematocrit of 11.3 and 34.0, probably secondary to hemodilution from a recovery room hemoglobin/hematocrit of 13.8/41.2. Platelet count is 117. Differential shows 42% neutrophils, 32% lymphocytes, 24% monocytes. There are no immature forms and no toxic granulations. His electrolytes are essentially normal with a BUN and creatinine of 12 and 0.71 and a glucose of 123 and calcium of 7.7. His blood gas today shows a pH of 7.41, a pCO2 of 33, a pO2 of 106, on 2 liters nasal cannula with a base excess of -2.9. His chest x-ray today shows a small apical cap in the right hemithorax. There is obligate volume loss from the lobectomy. There is some subcutaneous emphysema along the lateral chest wall. The costophrenic angles are sharp. I see no infiltrates. Chest tubes are in good place and there are no posterior infiltrates on the lateral film. IMPRESSION: 1. Clinical I A2 squamous cell carcinoma, final pathology pending. 2. Postoperative day #1 status post right lower lobectomy. 3. Pancytopenia, unknown origin. 4. Chronic obstructive pulmonary disease. 5. Former tobacco abuse. PLAN AND DISCUSSION: His blood pressure has now normalized and he is now off his phenylephrine. I will keep him in the intensive care unit one more day. Will discontinue his arterial line. His chest tube this morning had an air leak according to the nursing staff, I did not see one today. Will continue that on suction. Will of course await final pathology.
[2019-12-15] MEDS: FENTANYL/BUPIVACAINE/NACL BAG 250 ML EPIDURAL SCH (14:38)
[2019-12-15] MEDS ORDERED: FUROSEMIDE 20MG/2ML VIAL (J1940) IV ONE (16:00)
[2019-12-15] MEDS: traZODone 50 MG TAB PO SCH (20:18)
[2019-12-16] VITALS (7 sets, daily range): BP systolic 105–174; BP diastolic 57–84
[2019-12-16] MEDS: LEVALBUTEROL 1.25 MG/0.5 ML CONCENTRATE NEB NEB SCH ×4 (01:31→19:38)
[2019-12-16] MEDS: ceFAZolin SOD 1 GM in D5W MINI-BAG PLUS 50 ML IV SCH ×2 (02:09→10:00)
[2019-12-16] MEDS: KETOROLAC 30 MG/ML 1ML VIAL IV SCH ×4 (02:09→20:36)
[2019-12-16 04:52] LABS: HEMATOCRIT 32.7 % (42.0-52.0); HEMOGLOBIN 11.1 g/dl (13.5-17.5); MEAN CORPUSCULAR HEMOGLOBIN 34.3 pg (27.0-33.0); MEAN CORPUSCULAR HGB CONC 33.9 g/dl (32.0-36.5); MEAN CORPUSCULAR VOLUME 100.9 fl (80.0-96.0); RED BLOOD COUNT 3.24 10^6/uL (4.30-6.10); WHITE BLOOD COUNT 3.1 10^3/uL (4.0-10.0)
[2019-12-16 05:03] LABS: BLOOD UREA NITROGEN 12 MG/DL (7-18); CALCIUM LEVEL 7.6 MG/DL (8.8-10.2); CARBON DIOXIDE LEVEL 32 MEQ/L (21-32); CHLORIDE LEVEL 108 MEQ/L (98-107); CREATININE FOR GFR 0.86 MG/DL (0.70-1.30); GLOMERULAR FILTRATION RATE > 60.0 (>49); GLUCOSE, FASTING 99 MG/DL (70-100); SODIUM LEVEL 142 MEQ/L (136-145)
[2019-12-16 05:12] LABS: PLATELET COUNT, AUTOMATED 86 10^3/uL (150-450)
[2019-12-16 05:16] LABS: ATYPICAL LYMPH 4 % (0-5); LYMPHOCYTES 36 % (16-44); MONOCYTES 13 % (0-5); NEUTROPHILS 47 % (28-66)
[2019-12-16 05:17] LABS: PLATELET ESTIMATE DECREASED (NORMAL)
[2019-12-16] MEDS ORDERED: FUROSEMIDE 40MG/4ML VIAL (J1940) IV ONE (07:00)
[2019-12-16] MEDS: TIOTROPIUM INHALER/CAPSULE (SPIRIVA) INH SCH (07:36)
--- NOTE | 2019-12-16 08:30 | REP ---
Chest x-ray: Two views. History: Status post right lower lobectomy. Comparison chest x-ray: December 15, 2019. Findings: Two right-sided chest tubes remain in place. Monitoring electrodes are seen. There is soft tissue emphysema in the extrathoracic soft tissues on the right similar to the previous study. No new infiltrate. Cardiomediastinal silhouette is unchanged. Impression: Satisfactory postoperative chest x-ray. Two right chest tubes in place. Electronically Signed by Tyler Adames MD 12/16/2019 08:21 A
[2019-12-16] MEDS: DOCUSATE SODIUM 100 MG CAP PO SCH ×2 (08:50→20:36)
[2019-12-16] MEDS: MOM 30ML SUSPENSION UDC PO SCH (08:50)
[2019-12-16] MEDS: PANTOPRAZOLE 40MG TAB (PROTONIX) PO SCH (08:51)
[2019-12-16] MEDS: ATORVASTATIN 20 MG TAB PO SCH (08:51)
[2019-12-16] MEDS: FENTANYL/BUPIVACAINE/NACL BAG 250 ML EPIDURAL SCH (11:37)
--- NOTE | 2019-12-16 14:03 | IPN ---
DATE OF SERVICE: 12/16/2019 This is now the second postoperative day for Mr. Weaver, status post right lower lobectomy. His pain is being fairly well controlled, and his vital signs are stable. I have informed him that he is stage IA2 squamous cell carcinoma with all nodes negative. His vital signs show a maximum temperature (Tmax) of 101.0, now 97.7. Heart rate ranges between 84 and 94 in a sinus rhythm, a respiratory rate of 18-22 without the use of accessory muscles, who is 93% to 90% saturated on room air, and whose blood pressure is ranging between 147/82 to 105/65. His intake and output over the past 24 hours has been recorded as 3952 in and 2510 out for a positivity of 1442 mL. He has put out a total of 775 mL out of the chest tube, and it is sanguinous but does not look like filipe blood. In the last 12 hours, he has put out 135 mL, and there is no air leak. His weight today is 72.3 kg compared to 73 kg yesterday. He has put out 1735 mL in urine. The IV had been discontinued. On physical examination, he has coarse rhonchi throughout both lungs, most of which clear with coughing. Percussion note is full to the diaphragm. Cardiac examination: Is without murmurs, clicks, gallops, or rubs. I cannot feel his point of maximal impulse (PMI). S1, S2 are normal. Abdomen: Soft. Nontender. Bowel sounds are positive. He is slightly tympanitic and distended. There is no hepatomegaly. No costovertebral angle (CVA) tenderness. Extremities: Show no pretibial edema. No calf tenderness. No differential swelling of the upper extremities. Skin: Warm, dry, and perfused. Without cyanosis or mottling, including that of the nail beds and the knees. Neck: Supple. There is no jugular venous distention. No subcutaneous emphysema. Trachea is midline. Mouth: Shows his mucous membranes to be pink and moist. Lips and commissures are without lesions. There is no thrush. Eyes: Show his pupils to be equal and reactive. Extraocular motions are intact. Sclerae anicteric. Neurologic: Shows II-XII intact, along with gross motor and gross sensation intact. Gait is not tested. Psychiatric shows him to be awake, alert, and oriented times three with appropriate mood and affect and conversational. His white count today is 3.1 with a hemoglobin and hematocrit of 11.1 and 32.7 slightly down from 11.3 and 34.0 yesterday. Platelet count is 86 down from 1.17. Differential shows 47% neutrophils, 36% lymphocytes, 13% monocytes. There are no immature forms and no toxic granulations. His electrolytes are essentially normal with a BUN and creatinine of 12 and 0.86, a glucose of 99, and a calcium of 7.6. His chest x-ray shows his lung fully expanded to the chest wall. Costophrenic angles are sharp, and there are no infiltrates. Chest tubes are in good place. There is obligate volume loss from the lobectomy. Lateral chest film does not show any posterior infiltrates. His pathology has been reported back as moderate to poorly differentiated squamous cell carcinoma with a tumor measurement of 1.5 cm in its greatest dimensions. All nodes are negative. This, however, makes him a [id number] or stage IA2. IMPRESSION: 1. Postoperative day #2, status post right lower lobectomy. 2. Pancytopenia. 3. Thrombocytopenia. 4. Stage IA2 squamous cell carcinoma. 5. Chronic obstructive pulmonary disease (COPD). 6. Former tobacco abuse. PLAN AND DISCUSSION: I will transfer him to progressive care unit (PCU) today. I will start to diurese him. I will also stop his heparin as his platelet count is decreasing. [facility]
[2019-12-16] MEDS: traZODone 50 MG TAB PO SCH (20:36)
[2019-12-17] VITALS: BP 150/83
[2019-12-17] MEDS: LEVALBUTEROL 1.25 MG/0.5 ML CONCENTRATE NEB NEB SCH ×4 (01:47→21:14)
[2019-12-17] MEDS: KETOROLAC 30 MG/ML 1ML VIAL IV SCH ×4 (02:56→20:24)
[2019-12-17 04:00] VITALS: BP 150/83
[2019-12-17] MEDS: FENTANYL/BUPIVACAINE/NACL BAG 250 ML EPIDURAL SCH (05:16)
[2019-12-17 05:24] LABS: BASO % 0.7 % (0.0-1.0); EOS % 1.4 % (0.0-3.0); HEMATOCRIT 32.3 % (42.0-52.0); HEMOGLOBIN 11.1 g/dl (13.5-17.5); LYMPH # 0.8 10^3/uL (1.5-5.0); LYMPH % 26.4 % (24.0-44.0); MEAN CORPUSCULAR HEMOGLOBIN 34.3 pg (27.0-33.0); MEAN CORPUSCULAR HGB CONC 34.4 g/dl (32.0-36.5); MEAN CORPUSCULAR VOLUME 99.7 fl (80.0-96.0); MONO # 0.5 10^3/uL (0.0-0.8); NEUTROPHILS # 1.6 10^3/uL (1.5-8.5); NEUTROPHILS % 55.2 % (36.0-66.0); RED BLOOD COUNT 3.24 10^6/uL (4.30-6.10); WHITE BLOOD COUNT 2.9 10^3/uL (4.0-10.0)
[2019-12-17 05:27] LABS: PLATELET COUNT, AUTOMATED 94 10^3/uL (150-450)
[2019-12-17 05:39] LABS: BLOOD UREA NITROGEN 9 MG/DL (7-18); CARBON DIOXIDE LEVEL 30 MEQ/L (21-32); CHLORIDE LEVEL 106 MEQ/L (98-107); CREATININE FOR GFR 0.76 MG/DL (0.70-1.30); GLOMERULAR FILTRATION RATE > 60.0 (>49); GLUCOSE, FASTING 106 MG/DL (70-100); POTASSIUM SERUM 4.2 MEQ/L (3.5-5.1); SODIUM LEVEL 141 MEQ/L (136-145)
[2019-12-17] MEDS: TIOTROPIUM INHALER/CAPSULE (SPIRIVA) INH SCH (07:56)
[2019-12-17 08:00] VITALS: BP 157/71
[2019-12-17] MEDS: MOM 30ML SUSPENSION UDC PO SCH (08:02)
[2019-12-17] MEDS: PANTOPRAZOLE 40MG TAB (PROTONIX) PO SCH (08:02)
[2019-12-17] MEDS: ATORVASTATIN 20 MG TAB PO SCH (08:03)
[2019-12-17] MEDS: DOCUSATE SODIUM 100 MG CAP PO SCH ×2 (08:03→20:24)
--- NOTE | 2019-12-17 08:22 | REP ---
Clinical: Status post right lower lobectomy. Technique: PA and lateral. Comparison: 12/16/2019. Findings: Two right-sided chest tubes and postsurgical changes involving the right hemithorax remain essentially stable. No new acute process identified. The mediastinum and cardiac silhouette along with the left hemithorax appear normal. Impression: Stable appearance to the right hemithorax. Electronically Signed by Rl Montenegro MD 12/17/2019 08:14 A
[2019-12-17] MEDS ORDERED: FUROSEMIDE 40MG/4ML VIAL (J1940) IV ONE (08:45)
[2019-12-17 12:00] VITALS: BP 142/71
[2019-12-17] MEDS: PERCOCET 5MG/325MG TAB PO PRN (12:11)
--- NOTE | 2019-12-17 12:44 | IPN ---
DATE: 12/17/2019 This is now the third postoperative day for Mr. Weaver. His epidural has fallen out, but his pain is being well controlled. He grades it between 2-3. His vital signs show a T-max of 99.2, with a heart rate that ranges between 80 and 82 in a sinus rhythm, a respiratory rate of 17-18 without the use of accessory muscles and who is 96% saturated on room air. His blood pressure is ranging between 173/81 to 127/65. His intake and output the past 24 hours has been recorded as 1519 in and 3135 out for a negativity of 1650 mL. He put 355 mL out the chest tube and there is no air leak. His weight today is 70.3 kg compared to 72.3 kg yesterday. On physical examination, he has some crackles in the right lower lobe with some squeaks consistent with the chest tube. Percussion note is full to the diaphragm. Cardiac exam is without murmurs, clicks, gallops or rubs. I cannot feel his PMI. S1, S2 are normal. Abdomen is soft, nontender. Bowel sounds are positive. There is no hepatomegaly. No CVA tenderness. Extremities show no pretibial edema. No calf tenderness. No differential swelling of the upper extremities. Skin is warm, dry and perfused, without cyanosis or mottling, including that of the nail beds and knees. Neck is supple. There is no jugular venous distention. No subcutaneous emphysema. Trachea is midline. Mouth shows his mucous membranes to be pink and moist. Lips and commissures are without lesions. There is no thrush. Eyes show his pupils to be equal and reactive. Extraocular movements are intact. Sclerae nonicteric. Neurologic shows II-XII intact along with gross motor and gross sensation intact. Gait is not tested. Psychiatric shows him to be awake, alert and oriented times three with appropriate mood and affect and conversational. His white count today is 2.9 with hemoglobin and hematocrit of 11.1 and 32.3, unchanged from yesterday, with a platelet count marginally higher at 94 from 86 yesterday. Differential shows 55% neutrophils 26% lymphocytes, 16% monocytes. There are no immature forms and no toxic granulations. His chemistries today show normal electrolytes with a BUN and creatinine of 9 and 0.76. Potassium is 4.2. Glucose is 106 with a calcium of 8.0. His chest x-ray shows the lung fully expanded to the chest wall. Chest tubes are in good place. There is obligate volume loss from the lobectomy. I see no infiltrates. IMPRESSION: 1. Postoperative day #3 status post right lower lobectomy. 2. Stage I A2 squamous cell carcinoma. 3. Pancytopenia. 4. Thrombocytopenia. 5. Chronic obstructive pulmonary disease. 6. Former tobacco use. PLAN AND DISCUSSION: I will discontinue his chest tube suction today. His epidural is now out and I will discontinue his Mane catheter. He is written for PCU orders, but has not yet been transferred secondary to bed space. I will also continue to diurese him today. Hopefully, he will be able to get the chest tube out tomorrow.
[2019-12-17 16:00] VITALS: BP 123/74
[2019-12-17 20:00] VITALS: BP 140/68
[2019-12-17] MEDS: traZODone 50 MG TAB PO SCH (20:25)
[2019-12-18] VITALS: BP 150/75
[2019-12-18] MEDS: LEVALBUTEROL 1.25 MG/0.5 ML CONCENTRATE NEB NEB SCH ×4 (01:31→20:36)
[2019-12-18] MEDS: KETOROLAC 30 MG/ML 1ML VIAL IV SCH ×4 (03:54→20:38)
[2019-12-18 04:00] VITALS: BP 138/65
[2019-12-18 06:03] LABS: BASO % 0.9 % (0.0-1.0); EOS # 0.1 10^3/uL (0.0-0.5); EOS % 2.3 % (0.0-3.0); HEMATOCRIT 33.8 % (42.0-52.0); HEMOGLOBIN 11.3 g/dl (13.5-17.5); LYMPH # 0.7 10^3/uL (1.5-5.0); MEAN CORPUSCULAR HEMOGLOBIN 33.7 pg (27.0-33.0); MEAN CORPUSCULAR HGB CONC 33.4 g/dl (32.0-36.5); MEAN CORPUSCULAR VOLUME 100.9 fl (80.0-96.0); MONO # 0.3 10^3/uL (0.0-0.8); MONO % 15.6 % (0.0-5.0); NEUTROPHILS % 47.7 % (36.0-66.0); RED BLOOD COUNT 3.35 10^6/uL (4.30-6.10); WHITE BLOOD COUNT 2.2 10^3/uL (4.0-10.0)
[2019-12-18 06:06] LABS: PLATELET COUNT, AUTOMATED 98 10^3/uL (150-450)
[2019-12-18 06:27] LABS: BLOOD UREA NITROGEN 11 MG/DL (7-18); CARBON DIOXIDE LEVEL 30 MEQ/L (21-32); CHLORIDE LEVEL 106 MEQ/L (98-107); CREATININE FOR GFR 0.75 MG/DL (0.70-1.30); GLOMERULAR FILTRATION RATE > 60.0 (>49); GLUCOSE, FASTING 100 MG/DL (70-100); SODIUM LEVEL 139 MEQ/L (136-145)
[2019-12-18] MEDS: PERCOCET 5MG/325MG TAB PO PRN ×5 (06:37→22:18)
[2019-12-18 08:00] VITALS: BP 134/81
[2019-12-18] MEDS: TIOTROPIUM INHALER/CAPSULE (SPIRIVA) INH SCH (08:10)
[2019-12-18] MEDS: DOCUSATE SODIUM 100 MG CAP PO SCH ×2 (09:00→20:38)
[2019-12-18] MEDS: MOM 30ML SUSPENSION UDC PO SCH (09:00)
[2019-12-18] MEDS: ATORVASTATIN 20 MG TAB PO SCH (09:03)
[2019-12-18] MEDS: PANTOPRAZOLE 40MG TAB (PROTONIX) PO SCH (09:03)
--- NOTE | 2019-12-18 09:42 | REP ---
Clinical: Status post right lower lobectomy. Technique: PA and lateral. Comparison: 12/17/2019, 12/16/2019. Findings: Current examination suggests a small hydropneumothorax primarily identified at the right base along with further stable postsurgical changes. The mediastinum and cardiac silhouette are stable. The left hemithorax is clear. Impression: Small right hydropneumothorax identified at the right base. Electronically Signed by Rl Montenegro MD 12/18/2019 09:33 A
--- NOTE | 2019-12-18 11:40 | IPN ---
DATE: 12/18/2019 This is now the 4th postoperative day for Mr. Weaver. His pain control is doing well. His vital signs show a maximum temperature (Tmax) of 98.4 with a heart rate that ranges between 76 and 78 in a sinus rhythm, respiratory rate of 18-20 without the use of accessory muscles, and who is 96% saturated on room air. His blood pressure is ranging between 150/75 to 134/81. His intake and output the past 24 hours has been recorded as 1000 mL in and 1825 out for a negativity of 800 mL. He put 70 mL out the chest tube yesterday. Weight today is 70.1 kg, compared to 70.3 kg yesterday. On physical examination, his lungs still show quite a bit of rhonchus sounds in the right hemithorax. There are some in the left hemithorax, also. This corresponds with the findings on bronchoscopy of increased secretions. He is coughing up brown sputum. Cardiac exam is without murmurs, clicks, gallops, or rubs. I cannot feel his point of maximal impulse (PMI). S1 and S2 are normal. Abdomen soft, nontender. Bowel sounds are positive. He is tympanitic and distended. There is no significant tenderness. No hepatomegaly. Extremities show no pretibial edema. No calf tenderness. No differential swelling of the upper extremities. Skin is warm, dry, and perfused without cyanosis or mottling, including that of the nail beds and knees. Neck is supple. There is no jugular venous distention. No subcutaneous emphysema. Trachea is midline. Mouth shows his mucous membranes to be pink and moist. Lips and commissures without lesions. No thrush. Eyes show her pupils are equal and reactive. Extraocular motor intact. Sclerae nonicteric. Neurologic shows II-XII intact along with gross motor and gross sensation intact. Gait is not tested. Psychiatric shows him to be awake and alert, oriented times three with appropriate mood and affect, and conversational. His white count today is 2.2 with hemoglobin and hematocrit of 11.3 and 33.8, respectively. Platelet count is 98. Differential shows 47% neutrophils, 33% lymphocytes, and 15% monocytes. There are no immature forms or toxic granulations. Electrolytes are normal with BUN and creatinine of 11 and 0.75. Glucose is 100, and calcium is 8.0. His chest x-ray today shows his lung fully expanded to the chest wall. There is obligate volume loss from the lobectomy. Chest tubes are in good place. I see no infiltrates. IMPRESSION: 1. Postoperative day #4 status post right lower lobectomy. 2. Stage IA2 squamous cell carcinoma. 3. Pancytopenia. 4. Thrombocytopenia. 5. Chronic obstructive pulmonary disease. 6. Former tobacco abuse. PLAN AND DISCUSSION: I will discontinue his chest tubes today. I will diurese him also today. Hopefully, we will plan for discharge in the morning. I am very grateful that his pain control is doing well on oral analgesics.
[2019-12-18 11:42] VITALS: BP 152/86
[2019-12-18] MEDS ORDERED: FUROSEMIDE 40MG/4ML VIAL (J1940) IV ONE (12:00)
--- NOTE | 2019-12-18 14:10 | RO ---
DATE OF PROCEDURE: 12/14/2019 PREPROCEDURE DIAGNOSIS: Right lower lobe lung lesion. POSTPROCEDURE DIAGNOSIS: Squamous cell carcinoma. PROCEDURE: Video-assisted thoracoscopic surgery (VATS) wedge resection to establish diagnosis followed by a thoracotomy and right lower lobectomy, mediastinal node lymphadenectomy, five-level rib block, and bronchoscopy before and after with clearing of mucus secretions and plugs. SURGEON: Dr. Brendan Nelson ELECTRICAL SIGN SERVICER: ANESTHESIA: General. FINDINGS: There was an approximately 1.5 to 2 cm lesion in the right lower lobe adjacent to the fissure. He did have complete fissures. Wedge resection was undertaken to remove the entire lesion, which came back squamous cell carcinoma. We then proceeded to a lobectomy. Lobectomy revealed very fibrotic tissue, which required again extensive dissection, even though he had complete fissures. There were very few nodes, if any, in the paratracheal space. The paratracheal space was completely cleared from the trachea to the vena cava, back to the ascending aorta. The bronchoscopy revealed a normal branching tracheobronchial tree with increased secretions and mucus plugging. He, therefore, underwent bronchoscopy, not only before, but after the procedure. DESCRIPTION OF PROCEDURE: Under satisfactory general anesthesia and single-lumen tube endotracheal intubation, bronchoscope was passed into the tracheobronchial tree with the above results. Each sub-segment and segment were thoroughly inspected. There were no endobronchial lesions seen. He had copious amounts of secretions, which were suction aspirated. The patient then underwent double-lumen endotracheal intubation with bronchoscopic positioning of the tube. The patient was then turned into the left lateral decubitus position and sterilely prepped and draped in the usual fashion. Three thoracoscopy incisions were made. Lung was not adherent to the lateral wall. Inspection of the lower lobe along the fissure revealed a puckered lesion, which was seized with a grasper and then wedged out with three firings of an Cary stapler. This was sent to the lab, and it was reported back as squamous cell carcinoma. Preparations were then made for a right lower lobectomy. A posterolateral thoracotomy incision was made. Chest was entered through the 5th intercostal space above the 6th rib. Latissimus dorsi was divided, as was a slip of the serratus anterior. Inspection revealed an incomplete fissure, and dissection was started in that fissure. The pulmonary artery could be palpated at the confluence of fissures. However, it was quite difficult to uncover, even though there was only about 3 mm of tissue between it and the bottom of the fissure. The artery was surrounded with dense fibrotic tissue. Finally, after the dissecting the anterior and identifying the apical basilar branch of the pulmonary artery, a tunnel could be created between the lower lobe pulmonary artery and the already dissected mediastinal pleura posteriorly. Mediastinal pleural was again quite fibrotic with a very thick-type membrane. It was gently dissected with sharp and blunt dissection along with using a peanut to clear the posterior bronchi. A right angle clamp was then placed and could then be put through this very thick fibrous tissue with some amount of trepidation. The tunnel was widened, and the fissure was completed by use of an Cary stapler. Remainder of the lower lobe pulmonary artery along with its apical basilar segment could then be dissected. There was a small branch of the apical basilar segment which was interrupted, which caused fairly rapid bleeding, which was also rapidly controlled with a #5-0 Prolene figure-of-8 stitch. In separate firings, the main lower lobe pulmonary artery was then divided by use of a vascular staple, which was then followed by the apical basilar segmental artery. The inferior pulmonary ligament was then divided to ascertain the inferior portion of the pulmonary vein. This was dissected and also had increased fibrotic reaction. This, too, was then finally divided by use of a vascular stapler. This then left the fissure, which was divided by continuing anteriorly, first with the Harmonic scalpel and then with an Cary stapler. This then left the bronchus, which was then elevated and divided by use of an Cary 4.8 stapler. Prior to doing so, the lung was re-inflated to ascertain that both the upper and middle lobes inflated. The suture line was checked to 30 cm of water and was found to be intact. Attention was then turned to the mediastinum. There were very dense adhesions of the lung to the posterior mediastinum. Some of these were taken down, enough to expose the mediastinal space. Mediastinal pleura was divided and the mediastinal space cleared of tissue. There was a great paucity of lymph nodes. A five-level rib block consisting of Exparel and 0.25% Marcaine was then instilled. Two chest tubes were placed, one posteriorly as a right angle tube and one anteriorly as a straight #24 tube. The ribs were reapproximated by use of #1 Prolene figure-of-8 sutures. Extrathoracic muscles were closed with running #0 Vicryl suture. The subcutaneous tissue was closed with running #3-0 Vicryl suture, and the skin was closed with running #3-0 Monocryl subcuticular suture. Patient tolerated the procedure well and left the operating room in satisfactory condition. Prior to leaving the operating room, however, the patient was re-intubated with a single-lumen tube and I again passed a bronchoscope into the tracheobronchial tree. There were again copious amounts of secretions and mucus plugging, and these were removed with suction aspiration.
[2019-12-18 15:46] VITALS: BP 121/79
[2019-12-18 20:00] VITALS: BP 139/63
[2019-12-18] MEDS: traZODone 50 MG TAB PO SCH ×2 (20:38→20:53)
[2019-12-19] VITALS: BP 146/77
[2019-12-19] MEDS: LEVALBUTEROL 1.25 MG/0.5 ML CONCENTRATE NEB NEB SCH ×2 (01:32→07:36)
[2019-12-19] MEDS: KETOROLAC 30 MG/ML 1ML VIAL IV SCH ×2 (03:13→08:31)
[2019-12-19] MEDS: PERCOCET 5MG/325MG TAB PO PRN ×3 (03:13→11:08)
[2019-12-19 04:00] VITALS: BP 145/72
[2019-12-19 05:13] LABS: BASO % 0.4 % (0.0-1.0); EOS # 0.1 10^3/uL (0.0-0.5); EOS % 2.7 % (0.0-3.0); HEMATOCRIT 35.5 % (42.0-52.0); HEMOGLOBIN 11.8 g/dl (13.5-17.5); LYMPH # 0.7 10^3/uL (1.5-5.0); LYMPH % 33.2 % (24.0-44.0); MEAN CORPUSCULAR HEMOGLOBIN 33.2 pg (27.0-33.0); MEAN CORPUSCULAR HGB CONC 33.2 g/dl (32.0-36.5); MONO # 0.4 10^3/uL (0.0-0.8); MONO % 16.1 % (0.0-5.0); NEUTROPHILS % 46.7 % (36.0-66.0); PLATELET COUNT, AUTOMATED 124 10^3/uL (150-450); RED BLOOD COUNT 3.55 10^6/uL (4.30-6.10); WHITE BLOOD COUNT 2.2 10^3/uL (4.0-10.0)
[2019-12-19 05:42] LABS: BLOOD UREA NITROGEN 17 MG/DL (7-18); CALCIUM LEVEL 8.3 MG/DL (8.8-10.2); CARBON DIOXIDE LEVEL 30 MEQ/L (21-32); CHLORIDE LEVEL 107 MEQ/L (98-107); CREATININE FOR GFR 0.84 MG/DL (0.70-1.30); GLOMERULAR FILTRATION RATE > 60.0 (>49); GLUCOSE, FASTING 108 MG/DL (70-100); POTASSIUM SERUM 4.3 MEQ/L (3.5-5.1); SODIUM LEVEL 143 MEQ/L (136-145)
[2019-12-19] MEDS: TIOTROPIUM INHALER/CAPSULE (SPIRIVA) INH SCH (07:36)
[2019-12-19 08:00] VITALS: BP 134/68
[2019-12-19] MEDS: PANTOPRAZOLE 40MG TAB (PROTONIX) PO SCH (08:25)
[2019-12-19] MEDS: ATORVASTATIN 20 MG TAB PO SCH (08:26)
[2019-12-19] MEDS: DOCUSATE SODIUM 100 MG CAP PO SCH (08:33)
[2019-12-19] MEDS: MOM 30ML SUSPENSION UDC PO SCH (08:41)
--- NOTE | 2019-12-19 09:08 | REP ---
Clinical: Status post right lower lobectomy. Technique: PA and lateral. Comparison: 12/18/2019. Findings: Chest tubes have been removed. Right basilar pleural fluid and postsurgical changes noted. Small amount of subcutaneous emphysema over the right lateral chest wall slightly decreased. Impression: Continued postsurgical changes involving the right hemithorax including small amounts of pleural fluid Electronically Signed by Rl Montenegro MD 12/19/2019 09:00 A
[2019-12-19] MEDS ORDERED: PERCOCET PO (11:05)
--- NOTE | 2019-12-19 12:15 | DSES ---
DATE OF ADMISSION: 12/14/2019 DATE OF DISCHARGE: 12/19/2019 DISCHARGE DIAGNOSES: 1. Stage IA2 squamous cell carcinoma. 2. Postoperative day #5, status post right lower lobectomy. 3. Pancytopenia. 4. Chronic obstructive pulmonary disease. 5. Former tobacco abuse. HOSPITAL COURSE: The patient is a 64-year-old white male in whom a right upper lobe lesion was discovered on a screening lung scan. This was followed up and was found to continue to grow. Positron emission tomography (PET) scan showed it to be hypermetabolic. It was felt to be too small and too peripheral for biopsy; and, therefore, he was taken to the operating room on 12/14/2019 where he underwent a wedge resection with confirmation of diagnosis, followed by a right lower lobectomy. He had a benign postoperative course with the air leak stopping on the second postoperative day. He had an increased output over the next 2 days but finally decreased with diuresis, and the chest tubes were removed. He has uncharacterized pancytopenia. His platelet count fell to a low of 86. At this point in time, the subcutaneous heparin was stopped. He is being discharged today on his home medications, which include albuterol one nebulizer as needed every 4 hours wheezing, aspirin 81 mg every day, atorvastatin 40 mg nightly, naproxen 500 mg twice a day, trazodone 50 mg as needed sleep, Incruse Ellipta 65.5 mcg one puff every day, along with Percocet 5/325 every 4 hours as needed pain. He will return to see me in 1 week with a chest x-ray to the office in postoperative followup. The dressing has been removed. He may take a shower. I have asked him not to drive until he is reevaluated next week. His discharge white count is 2.2 with a hemoglobin and hematocrit of 11.8 and 35.5 with a platelet count of 124. He has an essentially normal differential. Electrolytes are normal with a BUN and creatinine of 17 and 0.84. edited: 12/20/2019 0950 carole SANDOVAL
== END 2019-12-19 12:19 | disposition home or self-care (01) | DRG 164 ==
LOC: M OR 07:00 → EDSTATUS 09:00 → M ICU 16:03 → M PCU 12-17 16:31
PROVIDERS: ADMIT Thoracic Surgery (Cardiothoracic Vascular Surgery); ATTEND Thoracic Surgery (Cardiothoracic Vascular Surgery)
PROC: 0B9F8ZZ Drainage of Right Lower Lung Lobe, Via Natural or Artificial Opening Endoscopic (ICD-10-PCS; 2019-12-14)
PROC: 0WBC0ZX Excision of Mediastinum, Open Approach, Diagnostic (ICD-10-PCS; 2019-12-14)
PROC: 0BBF0ZZ Excision of Right Lower Lung Lobe, Open Approach (ICD-10-PCS; principal; 2019-12-14 09:00)
DX: C34.31 Malignant neoplasm of lower lobe, right bronchus or lung (principal); D61.818 Other pancytopenia; I95.89 Other hypotension; D69.6 Thrombocytopenia, unspecified; J43.2 Centrilobular emphysema; Z87.891 Personal history of nicotine dependence; Z79.899 Other long term (current) drug therapy; F10.20 Alcohol dependence, uncomplicated; J30.9 Allergic rhinitis, unspecified; I25.10 Atherosclerotic heart disease of native coronary artery without angina pectoris

== ENCOUNTER → 2019-12-24 | Outpatient (CLI) | payer OTHER ==
[~2019-12-24] MED LIST changes: -LIDOCAINE 1% MDV 20ML VIAL SQ PRN; -LR 1,000 ML IV ONE; +PERCOCET PO
--- NOTE | 2019-12-25 13:31 | REPPI ---
REASON: Followup. All priors reviewed, the latest 12/19/2019. Chronic right basilar opacities with costophrenic angle and cardiophrenic angle junction, status quo. No change in the cardiomediastinal silhouette. No new abnormal opacities. No change in the osseous structures. IMPRESSION: No significant change. Electronically Signed by Juan F Paiz DO 12/26/2019 08:25 A
== END ==
LOC: M PLAIMG 14:51
PROVIDERS: ATTEND Thoracic Surgery (Cardiothoracic Vascular Surgery)
DX: R91.1 Solitary pulmonary nodule (principal)

== ENCOUNTER 2020-01-21 11:18 | Day surgery (SDC) | payer OTHER ==
--- NOTE | 2020-03-07 09:13 | REP ---
PORTABLE CHEST X-RAY: SINGLE VIEW HISTORY: Post procedure. COMPARISON: None. FINDINGS: The patient is rotated slightly to the right. There is blunting of the right lateral pleural angle. There are clips in the right paratracheal region. There is no evidence of pneumothorax. IMPRESSION: Blunting on the right lateral pleural angle. Linear fibrosis versus platelike atelectasis right base. Surgical clips right paratracheal region. Cervical spine fusion plating. No evidence of pneumothorax MTDD
--- NOTE | 2020-03-10 09:52 | RO ---
DATE OF OPERATION: 01/21/2020 PROCEDURE: Thoracentesis. INDICATIONS: Right pleural effusion. PRE-PROCEDURE DIAGNOSIS: Right pleural effusion. POST-PROCEDURE DIAGNOSIS: Right pleural effusion. ATTENDING PHYSICIAN: Dr. Noyola. CONSENT: Consent was obtained from the patient prior to the procedure. Indications, risks, and benefits were explained at length. PROCEDURE SUMMARY: A timeout was performed prior to the procedure. The appropriate side was confirmed and marked. Full sterile technique was maintained throughout the procedure including a surgical cap, mask, protective eyewear, sterile gown, and sterile gowns. The patient was prepped and draped in sterile manner using chlorhexidine scrub and the right-sided pleural effusion was confirmed with ultrasound prior to the procedure. Then, 1% lidocaine was used to anesthetize skin, subcutaneous, superior aspect of the rib, periosteum, and parietal pleura. A finder needle was then introduced over the superior aspect of the rib to locate the pleural fluid. Straw-colored fluid was aspirated. A scalpel blade was used to tha the skin at the insertion site. An Arrow thoracentesis needle was then introduced through the skin incision into the pleural space using negative aspiration pressure with withdrawal of straw-tinged, slightly orange-tinged, pleural fluid. The thoracocentesis catheter was then threaded without difficulty. A total of approximately 800 mL of yellow/orange colored fluid was removed without difficulty. The patient had some slight chest discomfort at the end of the procedure. The catheter was removed. No immediate complications were noted during the procedure. A post-procedure chest x-ray showed improvement in the right-sided pleural effusion, with trace pleural fluid and some thickening noted on the right, and volume loss related to post-surgical changes. There was no post-procedural pneumothorax noted. The fluid will be sent for studies. ESTIMATED BLOOD LOSS: Less than 5 mL. MTDD
[2020-03-16 15:10] LABS: PLEURAL FL COLOR AMBER (COLORLESS); SOURCE, BODY FLUID PLEURAL
[2020-03-16 15:11] LABS: APPEARANCE, BODY FLUID CLEAR (CLEAR)
[2020-04-10 09:46] LABS: LDH, BODY FLUID 328 U/L (NOT ESTABLISHED); SOURCE, BODY FLUID GLUCOSE PLEURAL; SOURCE, BODY FLUID LDH PLEURAL; SOURCE, BODY FLUID TOT PROTEIN PLEURAL; TOTAL PROTEIN, BODY FLUID 4.5 G/DL (NOT ESTABLISHED)
[2020-04-10 11:07] LABS: PH BODY FLUID 7.333 UNITS (NOT ESTABLISHED); SOURCE, BODY FLUID pH PLEURAL
== END 2020-01-21 16:25 | disposition home or self-care (01) ==
LOC: M SDC 11:18
PROVIDERS: ATTEND Internal Medicine Pulmonary Disease
DX: J90 Pleural effusion, not elsewhere classified (principal); J43.2 Centrilobular emphysema; E11.3391 Type 2 diabetes mellitus with moderate nonproliferative diabetic retinopathy without macular edema, right eye; C34.31 Malignant neoplasm of lower lobe, right bronchus or lung

== ENCOUNTER → 2020-01-26 | Outpatient (CLI) | payer OTHER ==
--- NOTE | 2020-03-25 09:40 | REP ---
CHEST TWO VIEWS HISTORY: Right lung neoplasm. COMPARISON: 01/21/2020. TECHNIQUE: Two views of the chest are performed. FINDINGS: There is mild increase in size of moderate right pleural effusion. There is mild adjacent parenchymal opacity as seen on prior studies. The left arm remains unchanged and clear. Heart is normal in size. Mediastinal silhouette is unchanged. There is calcification of the thoracic aorta. Metallic plate and screws are seen in the cervical spine. IMPRESSION: Mild increase in size of moderate right effusion. No other acute changes. MTDD
== END ==
LOC: M RAD 08:20
PROVIDERS: ATTEND Thoracic Surgery (Cardiothoracic Vascular Surgery)
DX: J90 Pleural effusion, not elsewhere classified (principal)

== ENCOUNTER 2020-02-02 10:38 | Inpatient (IN) | payer OTHER ==
[2020-02-02] MEDS ORDERED: PERCOCET 5MG/325MG TAB PO PRN ×2 (10:45)
[2020-02-02] MEDS ORDERED: ONDANSETRON 4MG/2ML VIAL IV PRN (10:45)
[2020-02-02] MEDS ORDERED: BISACODYL 10 MG SUPP PR PRN (10:45)
[2020-02-02] MEDS ORDERED: LEVALBUTEROL 1.25 MG/0.5 ML CONCENTRATE NEB NEB PRN (10:45)
[2020-02-02] MEDS ORDERED: ACETAMINOPHEN TAB 650MG DOSE (2X325MG) PO PRN (10:45)
[2020-02-02] MEDS ORDERED: KCL 20MEQ IN D5/NS 1000ML 1,000 ML IV SCH (11:00)
[2020-02-02] MEDS ORDERED: flumazeniL 0.5 MG/5 ML VIAL As Ordered ONE (11:15)
[2020-02-02] MEDS ORDERED: MIDAZOLAM INJ 2MG/2ML VIAL (J2250 PER 1MG) As Ordered ONE ×2 (11:15→11:16)
[2020-02-02] MEDS ORDERED: LIDOCAINE 1% MDV 20ML VIAL As Ordered ONE ×2 (11:16→14:30)
[2020-02-02 11:26] VITALS: BP 142/72
[2020-02-02] MEDS: KETOROLAC 30 MG/ML 1ML VIAL IV SCH ×2 (12:00→18:08)
[2020-02-02 12:06] LABS: HEMATOCRIT 32.9 % (42.0-52.0); HEMOGLOBIN 10.8 g/dl (13.5-17.5); MEAN CORPUSCULAR HEMOGLOBIN 32.1 pg (27.0-33.0); MEAN CORPUSCULAR HGB CONC 32.8 g/dl (32.0-36.5); MEAN CORPUSCULAR VOLUME 97.9 fl (80.0-96.0); PLATELET COUNT, AUTOMATED 148 10^3/uL (150-450); RED BLOOD COUNT 3.36 10^6/uL (4.30-6.10); WHITE BLOOD COUNT 2.6 10^3/uL (4.0-10.0)
[2020-02-02 12:15] LABS: INR 0.99; PROTHROMBIN TIME 13.3 SECONDS (11.8-14.0)
[2020-02-02 12:16] LABS: PARTIAL THROMBOPLASTIN TIME 28.1 SECONDS (25.0-38.4)
[2020-02-02 12:43] LABS: BLOOD UREA NITROGEN 9 MG/DL (7-18); CALCIUM LEVEL 8.4 MG/DL (8.8-10.2); CARBON DIOXIDE LEVEL 30 MEQ/L (21-32); CHLORIDE LEVEL 108 MEQ/L (98-107); CREATININE FOR GFR 0.92 MG/DL (0.70-1.30); GLOMERULAR FILTRATION RATE > 60.0 (>49); GLUCOSE, FASTING 77 MG/DL (70-100); LDH LACTATE DEHYDROGENASE 138 U/L (87-241); POTASSIUM SERUM 4.3 MEQ/L (3.5-5.1); SODIUM LEVEL 140 MEQ/L (136-145)
[2020-02-02 13:14] LABS: ATYPICAL LYMPH 3 % (0-5); EOSINOPHILS 2 % (0-3); LYMPHOCYTES 42 % (16-44); MONOCYTES 8 % (0-5); NEUTROPHILS 45 % (28-66); PLATELET ESTIMATE NORMAL (NORMAL)
[2020-02-02 13:15] LABS: OVALOCYTES 1+
[2020-02-02 15:14] LABS: PH BODY FLUID 7.428 UNITS (NOT ESTABLISHED); SOURCE, BODY FLUID pH PLEURAL
[2020-02-02 15:39] LABS: APPEARANCE, BODY FLUID CLOUDY (CLEAR); PLEURAL FL COLOR AMBER (COLORLESS); SOURCE, BODY FLUID PLEURAL
[2020-02-02] MEDS: NORCO, ANEXSIA 5/325MG TABLET (HYDROcodone/ACETAMINOPHEN) PO PRN ×2 (15:46→21:43)
[2020-02-02] MEDS: LEVALBUTEROL 1.25 MG/0.5 ML CONCENTRATE NEB NEB SCH ×2 (15:59→19:56)
[2020-02-02 16:00] VITALS: BP 142/79
[2020-02-02 17:40] LABS: AMYLASE, BODY FLUID 40 U/L (NOT ESTABLISHED); CHOLESTEROL, BODY FLUID < 50 MG/DL (NOT ESTABLISHED); LDH, BODY FLUID 321 U/L (NOT ESTABLISHED); SOURCE, BODY FLUID ALBUMIN PLEURAL; SOURCE, BODY FLUID AMYLASE PLEURAL; SOURCE, BODY FLUID CHOL PLEURAL; SOURCE, BODY FLUID GLUCOSE PLEURAL; SOURCE, BODY FLUID LDH PLEURAL; SOURCE, BODY FLUID TOT PROTEIN PLEURAL; SOURCE, BODY FLUID TRIG PLEURAL; TOTAL PROTEIN, BODY FLUID 3.9 G/DL (NOT ESTABLISHED); TRIGLYCERIDE, BODY FLUID 27 MG/DL (NOT ESTABLISHED)
[2020-02-02 20:00] VITALS: BP 116/64
[2020-02-02] MEDS: DOCUSATE SODIUM 100 MG CAP PO SCH (20:07)
[2020-02-02] MEDS: HEPARIN SOD (PORCINE) 5000UNITS/ML 1ML VIAL/SYRINGE SC SCH (20:07)
[2020-02-03] VITALS: BP 135/81
[2020-02-03] MEDS: KETOROLAC 30 MG/ML 1ML VIAL IV SCH ×3 (00:32→11:40)
[2020-02-03] MEDS: LEVALBUTEROL 1.25 MG/0.5 ML CONCENTRATE NEB NEB SCH ×2 (01:29→07:23)
[2020-02-03 04:00] VITALS: BP 140/68
[2020-02-03] MEDS: NORCO, ANEXSIA 5/325MG TABLET (HYDROcodone/ACETAMINOPHEN) PO PRN (05:06)
[2020-02-03 06:31] LABS: HEMATOCRIT 30.7 % (42.0-52.0); HEMOGLOBIN 10.2 g/dl (13.5-17.5); MEAN CORPUSCULAR HEMOGLOBIN 32.6 pg (27.0-33.0); MEAN CORPUSCULAR HGB CONC 33.2 g/dl (32.0-36.5); MEAN CORPUSCULAR VOLUME 98.1 fl (80.0-96.0); PLATELET COUNT, AUTOMATED 128 10^3/uL (150-450); RED BLOOD COUNT 3.13 10^6/uL (4.30-6.10); WHITE BLOOD COUNT 2.2 10^3/uL (4.0-10.0)
[2020-02-03 06:51] LABS: BLOOD UREA NITROGEN 9 MG/DL (7-18); CARBON DIOXIDE LEVEL 30 MEQ/L (21-32); CHLORIDE LEVEL 108 MEQ/L (98-107); CREATININE FOR GFR 1.04 MG/DL (0.70-1.30); GLOMERULAR FILTRATION RATE > 60.0 (>49); GLUCOSE, FASTING 88 MG/DL (70-100); POTASSIUM SERUM 4.5 MEQ/L (3.5-5.1); SODIUM LEVEL 140 MEQ/L (136-145)
[2020-02-03 06:52] LABS: CALCIUM LEVEL 8.4 MG/DL (8.8-10.2)
[2020-02-03 07:14] LABS: ATYPICAL LYMPH 2 % (0-5); EOSINOPHILS 2 % (0-3); LYMPHOCYTES 59 % (16-44); MONOCYTES 8 % (0-5); NEUTROPHILS 29 % (28-66); PLATELET ESTIMATE DECREASED (NORMAL)
[2020-02-03 07:15] LABS: GIANT PLATELETS 1+; OVALOCYTES 2+
[2020-02-03 08:00] VITALS: BP 137/72
[2020-02-03] MEDS: DOCUSATE SODIUM 100 MG CAP PO SCH (08:30)
[2020-02-03] MEDS: HEPARIN SOD (PORCINE) 5000UNITS/ML 1ML VIAL/SYRINGE SC SCH (08:31)
[2020-02-03] MEDS ORDERED: MOM 30ML SUSPENSION UDC PO SCH (09:00)
[2020-02-03] MEDS ORDERED: PANTOPRAZOLE 40MG TAB (PROTONIX) PO SCH (09:00)
--- NOTE | 2020-02-03 11:32 | REPVR ---
PROCEDURE INFORMATION: Exam: CT Chest Without Contrast Exam date and time: 02/03/2020 10:42 AM Age: 64 years old Clinical indication: Condition or disease; Other: Chest tube; Additional info: RT pleural effusion/chest tube TECHNIQUE: Imaging protocol: Computed tomography of the chest without contrast. 3D rendering (Not supervised by radiologist): MIP and/or 3D reconstructed images were created by the technologist. Radiation optimization: All CT scans at this facility use at least one of these dose optimization techniques: automated exposure control; mA and/or kV adjustment per patient size (includes targeted exams where dose is matched to clinical indication); or iterative reconstruction. COMPARISON: CT CHEST W/ CONTRAST - OUTSIDE PRIOR 12/02/2019 12:00 AM FINDINGS: Lungs: Postoperative volume loss and basilar airspace disease in the right hemithorax. Emphysematous change and interstitial prominence . Pleural space: Indwelling right pleural catheter in the posterior-inferior aspect of the right hemithorax with small residual right hydropneumothorax. Heart: Coronary artery calcification. Aorta: Calcification and ectasia of the thoracic aorta. Lymph nodes: Subcentimeter lymph nodes. Spleen: Spleen upper limits of normal in size. In dilated fluid-filled stomach. Bones/joints: Cervical spine fusion. Healing fracture of the right 5th rib. Mild degenerative change. Soft tissues: Subcutaneous emphysema and edema in the right lateral chest wall. IMPRESSION: 1. Postoperative volume loss and basilar airspace disease in the right hemithorax. 2. Indwelling right pleural catheter in the posterior-inferior aspect of the right hemithorax with small residual right hydropneumothorax. 3. Additional findings as described above. Electronically signed by: Paxton Villalpando On 02/03/2020 11:32:17 AM
[2020-02-03 11:58] VITALS: BP 119/75
--- NOTE | 2020-02-03 18:01 | DS.PDOC ---
Discharge Summary General Date of Admission Feb 02, 2020 at 10:59 Date of Discharge Feb 03, 2020 at 1207 Attending Physician: Brendan Nelson M.D. Specialist/Consultants Involve: Brendan Nelson M.D. Discharge Summary PROCEDURES PERFORMED DURING STAY: Pigtail catheter placement to R-intrapleural space for drainage ADMITTING/DISCHARGE DIAGNOSES: 1. R-sided chronic exudative pleural effusion 2/2 volume loss s/p RLL lobectomy 2. History of Stage IA2 squamous cell carcinoma s/p right lower lobectomy 3. Panyctopenia 4. COPD 5. hx of nicotine use disorder COMPLICATIONS/CHIEF COMPLAINT: Loculated Pleural Effusion. HISTORY OF PRESENT ILLNESS/HOSPITAL COURSE: Patient is a 64 y/o white Male who underwent right lower lobectomy for squamous cell carcinoma in late November following discovery of a lesion on a low dose lung CT. He was discharged in December and followed up with pulmonology where a CXR found a right sided pleural effusion. This was drained by Dr. Noyola using U/S guidance and 1 liter was taken off. The patient followed up with Dr. Nelson in early January where a follow up CXR found recurrence of the effusion so the recommendation was made to directly admit the patient to the hospital for pigtail catheter drainage of the fluid both for some symptomatic relief as well as to ascertain the reason for the recurrence. Following successful pigtail catheter placement, pleural fluid results showed an exudative effusion with high monocyte count and pending cytology. He put out 675 of clear red-orange serosanguinous fluid during his stay. CT done the following day demonstrated the lung not fully expanding to the chest wall. His catheter was pulled and he will see Dr. Nelson on 02/16 for follow-up. DISCHARGE MEDICATIONS: Please see below. ALLERGIES: Please see below. PHYSICAL EXAMINATION ON DISCHARGE: VITAL SIGNS: Please see below. GENERAL: Pleasant, no acute distress HEENT: NC, AT. EOMI, no scleral icterus. Mucous membranes moist, no pharyngeal erythema. NECK: no lymphadenopathy or JVD. CARDIOVASCULAR EXAMINATION: RRR, normal S1 and S2. Sinus rhythm on monitor. RESPIRATORY EXAMINATION: CTAB with full breath sounds bilaterally. Fine crackles in right base, no wheezes or rhonchi. No dullness to percussion or EA egophony. ABDOMINAL EXAMINATION: Soft, NT, ND. No hepatosplenomegaly. EXTREMITIES: No swelling or edema SKIN: No rashes or skin changes NEUROLOGICAL EXAMINATION: CN III-XII intact. No focal neurologic deficits appre ciated. PSYCHIATRIC EXAMINATION: normal mood and congruent affect. LABORATORY DATA: Please see below. IMAGING: CXR showing volume loss on the right, RLL not fully expanded to chest wall. CT showing mild pleural thickening inferiorly on the right with some intrapleural air and fluid inferiorly and to be expected given the pig tail catheter and his history of Right lower lobectomy. PROGNOSIS: stable ACTIVITY: As tolerated. DIET: As tolerated DISCHARGE PLAN: Home DISCHARGE INSTRUCTIONS: 1. Follow up with Dr. Nelson for appointment on 02/17/2020 at 0845 2. Wound care; remove dressing tomorrow. May shower tomorrow. 3. Follow up on cytology results for pleural fluid and cell block. DISCHARGE CONDITION: Stable. TIME SPENT ON DISCHARGE: 33 minutes. Vital Signs/I&Os Vital Signs Date Time Temp Pulse Resp B/P (MAP) Pulse Ox O2 Delivery O2 Flow Rate FiO2 02/03/20 11:58 98.2 70 16 119/75 (90) 96 Room Air I&O- Last 24 Hours up to 6 AM 02/03/20 06:00 Intake Total 650 ml Output Total 1120 ml Balance -470 ml Laboratory Data Labs 24H Laboratory Tests 2 02/03/20 05:25: Neutrophils (%) (Auto) , Neutrophils # (Auto) , Nucleated Red Blood Cells % (auto) 0.0, Neutrophils 29, Lymphocytes (Manual) 59H, Monocytes (Manual) 8H, Eosinophils (Manual) 2, Atypical Lymphocytes 2, Macrocytosis 1+, Ovalocytes 2+, Giant Platelets 1+, Platelet Estimate DECREASED, Anion Gap 2L, Glomerular Filtration Rate > 60.0, Calcium Level 8.4L CBC/BMP Laboratory Tests 02/03/20 05:25 Microbiology Microbiology 02/02/20 Acid Fast Stain, Received Pending 02/02/20 Mycobacterial Culture, Received Pending 02/02/20 Fungal Smear, Received Pending 02/02/20 Fungal Culture, Received Pending 02/02/20 Gram Stain - Final, Resulted 02/02/20 Anaerobic Culture, Resulted Pending 02/02/20 Body Fluid Culture, Received Pending Discharge Medications Scheduled Aspirin (Aspir 81) 81 Mg Tablet., 81 MG PO DAILY, (Reported) Atorvastatin Calcium (Atorvastatin Calcium) 40 Mg Tablet, 40 MG PO DAILY, (Reported) Levocetirizine Dihydrochloride (Levocetirizine Dihydrochloride) 5 Mg Tablet, 5 MG PO QPM, (Reported) Naproxen (Naproxen) 500 Mg Tablet, 500 MG PO BID, (Reported) Umeclidinium [place] (Incruse Ellipta) 62.5 Mcg Blst.w.dev, 1 PUFF INH DAILY, (Reported) Scheduled PRN Albuterol Sulf (Albuterol Sulfate) 2.5 Mg/3 Ml Vial.neb, 1 VIAL NEB Q4HP PRN for wheezing, (Reported) Oxycodone/Acetaminophen (Oxycodone-Acetaminophen 5-325) 1 Each Tablet, 1-2 TAB PO Q4H PRN for MODERATE PAIN (PS 5-7) Trazodone HCl (Trazodone HCl) 50 Mg Tablet, 50 MG PO QHS PRN for SLEEP, (Reported) Allergies Coded Allergies: No Known Allergies (Unverified , 12/08/19) GME ATTESTATION GME ATTESTATION My faculty preceptor for this patient encounter was physically present during the encounter and was fully available. All aspects of the patient interview, examination, medical decision making process, and medical care plan development were reviewed and approved by the faculty preceptor. The faculty preceptor is aware and concurs with the plan as stated in the body of this note and will attest to such by his/her cosignature. CHARLES CARLIN DO Feb 03, 2020 18:01
[2020-02-03] MEDS ORDERED: traZODone 100 MG TAB PO SCH (21:00)
--- NOTE | 2020-02-10 14:41 | REP ---
CHEST X-RAY: 2-VIEWS HISTORY: Post pigtail catheter placement right pleural space. COMPARISON: Chest x-ray 01/26/2020. FINDINGS: Post-procedure chest x-ray demonstrates the right pleural drainage pigtail catheter in the posterior pleural angle. There is less pleural fluid than was presented on 01/26/2020. There is an air fluid level with a small subpulmonic pneumothorax collection where the previous study showed pleural fluid. Lung spivey are otherwise unchanged. IMPRESSION: Subpulmonic hydropneumothorax with drainage tube placement in the posterior pleural angle on the right. MTDD
--- NOTE | 2020-02-10 14:48 | REP ---
ULTRASOUND-GUIDED RIGHT THORACENTESIS WITH CATHETER PLACEMENT The procedure was performed under the direct supervision of Dr. Adames. The risks and benefits of the procedure were explained to the patient and informed consent was obtained. The right pleural effusion was localized using ultrasound guidance. The skin was prepped and draped in a sterile fashion. 1% Lidocaine was used as a local anesthetic. Using ultrasound guidance a 10-Hung[place] Skater catheter was inserted using trocar technique. 100 mL of low viscosity red colored fluid was withdrawn and sent to the lab. The catheter was affixed to the skin and a sterile dressing was applied. The catheter was connected to a Pleur-Evac. The patient tolerated the procedure well and there were no immediate complications. After the appropriate amount of monitored convalescence, the patient was discharged from the department. JAIME
--- NOTE | 2020-03-20 09:24 | HPE ---
Dictated by Santiago Torres DO in conjunction with attending Brendan Nelson M.D. DATE OF ADMISSION: 02/02/2020 HISTORY OF PRESENT ILLNESS: The patient is a 64-year-old male who presents today for a recurrent right-sided pleural effusion. He underwent right upper lobectomy with lymph node resection on 12/14/2019, with pathology returning negative for malignancy. On followup, a chest x-ray was done which found him to have recurrent fluid in his right thoracic cavity. One liter was drained via ultrasound-guided thoracentesis by Dr. Sarah Noyola on 01/21/2020; however, on follow-up with Dr. Nelson at the office, it was found that there was recurrence of fluid in the chest, so the decision was made to have the patient admitted for pigtail catheter drainage with subsequent monitoring over the next few days. REVIEW OF SYSTEMS: GENERAL: Patient denies any fevers, chills, night sweats, recent unexpected weight change. HEENT: Denies headaches, monocular blindness, yellowing of his eyes, ear drainage, ear pain, hearing changes, nosebleeds, nasal congestion, nasal drainage, mouth or throat pain. CHEST: Admits to chest pressure prior to drainage. Denies palpitations or history of heart attacks in the past. RESPIRATORY: Admits to shortness of breath prior to drainage. Denies wheezing, coughing, or hemoptysis. GASTROINTESTINAL: Denies nausea, vomiting, abdominal pain, melena, hematochezia, diarrhea, constipation. GENITOURINARY: Denies hematuria or dysuria. MUSCULOSKELETAL: Denies muscle aches or pains, joint pain or weakness. NEUROLOGICAL: Denies numbness or tingling in the upper or lower extremities or vertigo. ENDOCRINE: Denies polyuria, polyphagia, polydipsia, heat or cold intolerance. PSYCHOLOGIC: Denies SI, HI, AVH. PAST MEDICAL HISTORY: Stage IA squamous cell carcinoma. PAST SURGICAL HISTORY: Right lower lobectomy. Right upper lobectomy. Cervical disk fusion. SOCIAL HISTORY: 35-pack year history of one pack per day. Quit this past August of 2019. Drinks three beers of Blue Lights per day. No remote history of recreational marijuana use. No other illicit drug use. Remote history 30 years ago of travel to [place] and no other recent travel history. 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 FAMILY HISTORY: Brother of esophageal cancer. His biological father in a coal mining accident. His mother of chronic obstructive pulmonary disease (COPD). ALLERGIES: No known drug allergies. MEDICATIONS: - atorvastatin. - trazodone - hydrocodone PHYSICAL EXAMINATION: VITAL SIGNS: Weight 70.1 kg, temperature 98.8 degrees Fahrenheit, pulse 72, respiratory rate 18, blood pressure 142/79, saturating 97% on room air. Output 450 mL red serosanguineous fluid with no air leak. GENERAL: The patient is a pleasant appearing male, resting comfortably in bed, in no acute distress. HEENT: Head is normocephalic, atraumatic. EOMI. No scleral icterus. Nares patent. Mucous membranes moist. No uvular deviation or pharyngeal erythema or edema. NECK: No thyromegaly or cervical or supraclavicular lymphadenopathy. Thyroid mobile and not enlarged. CARDIOVASCULAR: Regular rate and rhythm. Normal S1, S2. No murmurs, gallops, or rubs appreciated on auscultation. RESPIRATORY: Mildly diminished breath sounds bilaterally with possible rhonchi heard in the right lower lobe versus fine crackles secondary to sounds from the pigtail catheter. No E to A egophony. No dullness to percussion over the back. ABDOMEN: Bowel sounds present. Abdomen is soft, nontender, and nondistended. No hepatosplenomegaly. No masses or ecchymosis. No CVA tenderness bilaterally. NEUROLOGIC: Cranial nerves III to XII intact. Muscle strength +5/5 in bilateral upper and lower extremities. Sensation intact throughout. EXTREMITIES: No upper or lower extremity edema or clubbing. PSYCHOLOGIC: Normal mood and affect. LABORATORY DATA: White blood cell count of 2.6, hemoglobin of 10.8, hematocrit of 32.9, platelet count of 148,000. Sodium 140, potassium 4.3, chloride 108, bicarb 30, BUN 9, creatinine 0.92, glucose 77, calcium 8.4, LDH 138. Coags: PT 13.3, INR 0.99, PTT 28.1. Pleural fluid pH of 7.4. Fluid white blood cell count of 1062, fluid red blood cells 20, monocyte predominance of 98.7, PMNs 1.3, Glucose 78, total protein 3.9, albumin 1.9. Pleural fluid LDH of 321, amylase of 40, cholesterol less than 50, fluid triglycerides 27. Color was tommy and cloudy in appearance. ASSESSMENT AND PLAN: Recurrent pleural effusion status post right upper lobectomy. Fluid analysis consistent with exudative process which is in line with his history of squamous cell carcinoma. I suspect given his history of lung cancer in the past this process could be secondary to recurrence of his squamous cell carcinoma, especially given that it is squamous cell and he has not undergone chemotherapy or radiation. We have ordered cytology and await the results of that for further analysis. MTDD
== END 2020-02-03 15:27 | disposition home or self-care (01) | DRG 187 ==
LOC: M PCU 10:59
PROVIDERS: ADMIT Thoracic Surgery (Cardiothoracic Vascular Surgery); ATTEND Thoracic Surgery (Cardiothoracic Vascular Surgery)
PROC: 0W9930Z Drainage of Right Pleural Cavity with Drainage Device, Percutaneous Approach (ICD-10-PCS; principal; 2020-02-02 13:00)
DX: J90 Pleural effusion, not elsewhere classified (principal); D61.818 Other pancytopenia; J44.9 Chronic obstructive pulmonary disease, unspecified; Z85.118 Personal history of other malignant neoplasm of bronchus and lung; Z90.2 Acquired absence of lung [part of]; Z98.1 Arthrodesis status; Z87.891 Personal history of nicotine dependence; Z79.891 Long term (current) use of opiate analgesic; Z79.899 Other long term (current) drug therapy

== ENCOUNTER → 2020-02-14 | Outpatient (CLI) | payer OTHER ==
--- NOTE | 2020-03-13 10:00 | REP ---
CHEST X-RAY CLINICAL: History of malignant neoplasm. TECHNIQUE: PA and lateral. FINDINGS: Moderate right pleural effusion and right basilar atelectasis. Mediastinum and cardiac silhouette are within normal limits. Remainder of lung spivey are relatively clear. Nodule versus asymmetric nipple shadow in the left mid lung zone again noted. Skeletal structures are intact. IMPRESSION: New moderate right pleural effusion and right basilar atelectasis. MTDD
== END ==
LOC: M RAD 14:36
PROVIDERS: ATTEND Thoracic Surgery (Cardiothoracic Vascular Surgery)
DX: J90 Pleural effusion, not elsewhere classified (principal); J98.11 Atelectasis; C34.31 Malignant neoplasm of lower lobe, right bronchus or lung

== ENCOUNTER → 2020-03-16 | Outpatient (CLI) | payer OTHER ==
--- NOTE | 2020-03-21 11:29 | REP ---
CHEST X-RAY: 2-VIEWS HISTORY: Right lower lobe malignant neoplasm. COMPARISON: 02/14/20 FINDINGS: 2-views of the chest are performed. Once again, there is a moderate right pleural effusion present, which is unchanged. There is mild adjacent right base atelectatic change, which is also stable. There is mild blunting of the left costophrenic angle, unchanged. The heart is normal in size. The mediastinal silhouette is unchanged. There is mild calcification of the thoracic aorta. Metallic plate and screws are seen in the lower cervical spine. IMPRESSION: Stable examination. MTDD
== END ==
LOC: M RAD 11:24
PROVIDERS: ATTEND Thoracic Surgery (Cardiothoracic Vascular Surgery)
DX: C34.31 Malignant neoplasm of lower lobe, right bronchus or lung (principal); J90 Pleural effusion, not elsewhere classified

== ENCOUNTER → 2020-08-10 | Outpatient (CLI) | payer SELFPAY | LOC: M LABSMTC 12:27 | PROVIDERS: ATTEND Pediatrics | DX: Z20.822 Contact with and (suspected) exposure to COVID-19 (principal) ==

== ENCOUNTER → 2020-08-18 | Outpatient (CLI) | payer OTHER ==
[2020-08-18 09:32] LABS: BLOOD UREA NITROGEN 12 MG/DL (7-18); CREATININE FOR GFR 0.95 MG/DL (0.70-1.30); GLOMERULAR FILTRATION RATE > 60.0 (>49)
== END ==
LOC: M LAB 08:32
PROVIDERS: ATTEND Internal Medicine Pulmonary Disease
DX: C34.31 Malignant neoplasm of lower lobe, right bronchus or lung (principal)

== ENCOUNTER → 2020-08-22 | Outpatient (CLI) | payer OTHER ==
[~2020-08-22] MED LIST changes: +ISOVUE-370 76% 100ML VIAL As Ordered ONE
--- NOTE | 2020-08-22 11:25 | REP ---
INDICATION: MALIGNANT NEOPLASM LOWER LOBE RT LUNG COMPARISON: 02/03/2020 TECHNIQUE: Axial contrast enhanced images from the thoracic inlet to the upper abdomen with coronal and sagittal reformations using 75 ml Isovue 370 intravenous contrast material. This CT examination was performed using the following dose reduction techniques: Automated exposure control, adjustment of mA and/or kv according to the patient's size, and use of iterative reconstruction technique. FINDINGS: Patient is again noted to be status post right lower lobectomy and postsurgical changes are appreciated including small amount of basilar pleural fluid, adjacent parenchymal scarring, and pleural thickening. Aerated residual right lobes and left lung demonstrate stable chronic changes including few small areas of presumed scarring measuring up to 4 mm. No acute consolidation, significant nodule or mass lesion identified. No pneumothorax. Tracheobronchial tree is relatively patent. The mediastinum demonstrates atherosclerotic changes without aortic aneurysm or dissection. No cardiomegaly or significant pericardial effusion. Osseous structures demonstrate postsurgical changes to the right ribs and no acute abnormality. Limited upper abdomen demonstrates normal bilateral adrenal glands. IMPRESSION: 1. Postsurgical changes involving the right hemithorax including small areas of linear scarring, pleural thickening and small pleural fluid. 2. No evidence for malignancy/recurrence or metastatic disease noted. <Electronically signed by Rl Monten[place]ro > 08/22/20 [id number]
== END ==
LOC: M RAD 10:27
PROVIDERS: ATTEND Internal Medicine Pulmonary Disease
DX: C34.31 Malignant neoplasm of lower lobe, right bronchus or lung (principal)
CPT/HCPCS: 71260; Q9967

== ENCOUNTER → 2021-03-12 | Outpatient (CLI) | payer OTHER ==
[~2021-03-12] MED LIST changes: -ISOVUE-370 76% 100ML VIAL As Ordered ONE
[2021-03-12 10:41] LABS: BLOOD UREA NITROGEN 4 MG/DL (7-18); CREATININE FOR GFR 0.87 MG/DL (0.70-1.30); GLOMERULAR FILTRATION RATE > 60.0 (>49)
== END ==
LOC: M LAB 08:46
PROVIDERS: ATTEND Internal Medicine Pulmonary Disease
DX: C34.31 Malignant neoplasm of lower lobe, right bronchus or lung (principal)

== ENCOUNTER → 2021-03-19 | Outpatient (CLI) | payer OTHER ==
[~2021-03-19] MED LIST changes: +ISOVUE-370 76% 100ML VIAL As Ordered ONE
--- NOTE | 2021-03-19 10:33 | REP ---
INDICATION: RT LUNG MALIGNANT NEOPLASM. COMPARISON: Comparison chest CT studies are from August 22, 2020 and February 03, 2020. TECHNIQUE: Helical scanning is acquired following the intravenous injection of 100 mL of Isovue 370. Part of the contrast dose apparently leaked from a tubing connector outside the patient. The exam was reviewed and felt to be diagnostic. 3 mm axial images re-formatted. Coronal and sagittal MPR and coronal MIP images are provided. FINDINGS: Preliminary digital plate glass polisher radiograph demonstrates fusion plate for a in the cervical spine and blunting of the right lateral pleural angle. Axial CT images demonstrate post thoracotomy changes. Patient is status post right lower lobectomy. There is chronic pleural thickening in the right base posteriorly and laterally unchanged from the August 2020 study. There is no evidence of recurrent lung mass. There are 3 small lymph nodes in the aortic or pulmonary window region of the mediastinum and 1 just to the left of the clay. These are unchanged from the December 02, 2019 CT study. No new mediastinal or hilar nodes. There are 3 small stable pulmonary nodules, 2 in the left lower lobe and 1 in the left upper lobe. These are visible on page is 74, 70, and 43 of 116 in series 201 of today's axial study. These are all unchanged from the December 02, 2019 study. No new pulmonary nodule is seen. Post thoracotomy changes are noted in the 2 or 3 right ribs unchanged. No bony destructive lesion is seen. Normal adrenal glands are again seen. There is vascular calcification and some plaquing and mild narrowing in the left subclavian artery unchanged. IMPRESSION: Post thoracotomy changes right chest. No evidence of new mass or adenopathy. <Electronically signed by Hong Adames > 03/19/21 [id number]
== END ==
LOC: M RAD 09:39
PROVIDERS: ATTEND Internal Medicine Pulmonary Disease
DX: C34.90 Malignant neoplasm of unspecified part of unspecified bronchus or lung (principal)
CPT/HCPCS: 71260; Q9967

== ENCOUNTER 2021-06-23 10:43 | Emergency (ER) | payer OTHER ==
[~2021-06-23] VITALS: Ht 167.6 cm; Wt 65.9 kg
[~2021-06-23 10:43] MED LIST changes: -ISOVUE-370 76% 100ML VIAL As Ordered ONE
[2021-06-23] MEDS ORDERED: LIDO5DIS41 TOP (14:40)
[2021-06-23] MEDS ORDERED: GABA-282 PO (14:40)
[2021-06-23 15:01] VITALS: BP 149/72
== END 2021-06-23 15:03 | disposition home or self-care (01) ==
LOC: M ED 10:43
DX: M54.2 Cervicalgia (principal); M54.6 Pain in thoracic spine; M25.511 Pain in right shoulder; M54.50 Low back pain, unspecified; W00.0XXA Fall on same level due to ice and snow, initial encounter; Y92.9 Unspecified place or not applicable; Y93.9 Activity, unspecified; Y99.0 Civilian activity done for income or pay; M50.90 Cervical disc disorder, unspecified, unspecified cervical region; Z98.1 Arthrodesis status; Z85.118 Personal history of other malignant neoplasm of bronchus and lung; F17.200 Nicotine dependence, unspecified, uncomplicated; Z79.82 Long term (current) use of aspirin; Z79.899 Other long term (current) drug therapy

== ENCOUNTER 2021-08-10 13:07 | Emergency (ER) | payer OTHER ==
[~2021-08-10] VITALS: Ht 167.6 cm; Wt 63.6 kg
[~2021-08-10 13:07] MED LIST changes: +GABA-282 PO; +LIDO5DIS41 TOP
[2021-08-10] MEDS ORDERED: TRAZ-189 (13:13)
[2021-08-10] MEDS ORDERED: MORPHINE 10 MG/ML 1ML VIAL (J2270) IM ONE (14:10)
[2021-08-10 14:47] VITALS: BP 167/79
== END 2021-08-10 14:49 | disposition home or self-care (01) ==
LOC: M ED 13:07
DX: S50.01XA Contusion of right elbow, initial encounter (principal); W22.8XXA Striking against or struck by other objects, initial encounter; Y92.9 Unspecified place or not applicable; Y93.9 Activity, unspecified; Y99.0 Civilian activity done for income or pay; C34.31 Malignant neoplasm of lower lobe, right bronchus or lung; J44.9 Chronic obstructive pulmonary disease, unspecified; F17.200 Nicotine dependence, unspecified, uncomplicated; Z79.82 Long term (current) use of aspirin; Z79.899 Other long term (current) drug therapy

== ENCOUNTER → 2021-08-20 | Outpatient (CLI) | payer OTHER ==
[~2021-08-20] MED LIST changes: +TRAZ-189
[2021-08-20 14:21] LABS: ALBUMIN 3.5 GM/DL (3.2-5.2); ALT/SGPT 19 U/L (12-78); BLOOD UREA NITROGEN 8 MG/DL (7-18); CARBON DIOXIDE LEVEL 31 MEQ/L (21-32); CHLORIDE LEVEL 107 MEQ/L (98-107); CHOLESTEROL LEVEL 147 MG/DL (<200); CREATININE FOR GFR 0.98 MG/DL (0.70-1.30); GLOMERULAR FILTRATION RATE > 60.0 (>49); GLUCOSE, FASTING 92 MG/DL (70-100); HDL CHOLESTEROL 60 MG/DL (>40); LDL CHOLESTEROL 69 MG/DL (<100); NON-HDL-C 87 MG/DL; POTASSIUM SERUM 3.9 MEQ/L (3.5-5.1); SODIUM LEVEL 141 MEQ/L (136-145); TOTAL PROTEIN 7.4 GM/DL (6.4-8.2); TRIGLYCERIDES LEVEL 88 MG/DL (<150)
== END ==
LOC: M LAB 13:12
PROVIDERS: ATTEND Nurse Practitioner Family
DX: Z00.00 Encounter for general adult medical examination without abnormal findings (principal); E78.00 Pure hypercholesterolemia, unspecified

== ENCOUNTER → 2021-10-30 | Outpatient (CLI) | payer OTHER | LOC: M RAD 17:10 | PROVIDERS: ATTEND Internal Medicine Pulmonary Disease | DX: C34.31 Malignant neoplasm of lower lobe, right bronchus or lung (principal) ==

== ENCOUNTER → 2021-11-03 | Outpatient (CLI) | payer OTHER ==
[2021-11-03 12:51] LABS: APPEARANCE, URINE CLEAR (CLEAR); BACTERIA, URINE AUTO NEGATIVE (NEGATIVE); BILIRUBIN, URINE AUTO NEGATIVE (NEGATIVE); BLOOD, URINE BLOOD NEGATIVE (NEGATIVE); COLOR, URINE YELLOW (YELLOW); GLUCOSE, URINE (UA) AUTO NEGATIVE (NEGATIVE); KETONE, URINE AUTO NEGATIVE (NEGATIVE); LEUKOCYTE ESTERASE, URINE AUTO NEGATIVE (NEGATIVE); NITRITE, URINE AUTO NEGATIVE (NEGATIVE); PROTEIN, URINE AUTO NEGATIVE (NEGATIVE); RBC, URINE AUTO 0 /HPF (0-3); SPECIFIC GRAVITY URINE AUTO 1.008 (1.002-1.035); SQUAMOUS EPITHELIAL CELL UR AU 0 /HPF (0-6); UROBILINOGEN, URINE AUTO 0.2 mg/dL (0.0-2.0); WBC, URINE AUTO 1 /HPF (0-3)
[2021-11-03 13:02] LABS: HEMATOCRIT 38.5 % (42.0-52.0); MEAN CORPUSCULAR HEMOGLOBIN 32.6 pg (27.0-33.0); MEAN CORPUSCULAR HGB CONC 33.8 g/dl (32.0-36.5); MEAN CORPUSCULAR VOLUME 96.5 fl (80.0-96.0); PLATELET COUNT, AUTOMATED 156 10^3/uL (150-450); RED BLOOD COUNT 3.99 10^6/uL (4.30-6.10); WHITE BLOOD COUNT 2.7 10^3/uL (4.0-10.0)
[2021-11-03 13:23] LABS: ALBUMIN 3.7 GM/DL (3.2-5.2); ALT/SGPT 15 U/L (12-78); BILIRUBIN,DIRECT 0.3 MG/DL (0.0-0.2); BILIRUBIN,TOTAL 1.1 MG/DL (0.2-1.0); BLOOD UREA NITROGEN 8 MG/DL (7-18); C REACTIVE PROTEIN QUANTITATIV 0.69 MG/DL (0.00-0.30); CALCIUM LEVEL 8.5 MG/DL (8.8-10.2); CARBON DIOXIDE LEVEL 30 MEQ/L (21-32); CHLORIDE LEVEL 104 MEQ/L (98-107); CREATININE FOR GFR 0.93 MG/DL (0.70-1.30); FREE T4 0.81 NG/DL (0.76-1.46); GLOMERULAR FILTRATION RATE > 60.0 (>49); GLUCOSE, FASTING 99 MG/DL (70-100); LDH LACTATE DEHYDROGENASE 240 U/L (87-241); POTASSIUM SERUM 3.9 MEQ/L (3.5-5.1); SODIUM LEVEL 136 MEQ/L (136-145); TOTAL PROTEIN 7.8 GM/DL (6.4-8.2)
[2021-11-03 13:32] LABS: ATYPICAL LYMPH 4 % (0-5); EOSINOPHILS 2 % (0-3); LYMPHOCYTES 47 % (16-44); MONOCYTES 12 % (0-5); NEUTROPHILS 34 % (28-66); PLASMA CELL 1 % (0-0)
[2021-11-03 13:33] LABS: OVALOCYTES 1+; PLATELET ESTIMATE NORMAL (NORMAL)
[2021-11-03 13:34] LABS: SCHISTOCYTES 1+
[2021-11-03 13:35] LABS: ERYTHROCYTE SEDIMENTATION RATE 29 mm/hr (0-20)
== END ==
LOC: M LAB 12:14
PROVIDERS: ATTEND Nurse Practitioner Family
DX: R63.4 Abnormal weight loss (principal)
CPT/HCPCS: 36415; 80053; 81001; 82248; 83615; 84439; 84443; 85025; 85652; 86140; G0103

== ENCOUNTER → 2021-11-07 | Outpatient (REF) | payer OTHER | LOC: M LAB REF 12:58 | PROVIDERS: ATTEND Nurse Practitioner Family | DX: R63.4 Abnormal weight loss (principal) ==

== ENCOUNTER 2021-12-09 08:27 | Emergency (ER) | payer OTHER ==
[~2021-12-09] VITALS: Ht 167.6 cm; Wt 58.0 kg
[~2021-12-09 08:27] MED LIST changes: +ALBU2.5V10 NEB; -ALBU83IN NEB; -TRAZ-189; +TRAZ-189 PO
[2021-12-09] MEDS ORDERED: NS 1,000 ML IV ONE (09:00)
[2021-12-09] MEDS ORDERED: NITROGLYCERIN 0.4 MG SUBL TABLET SL PRN (09:05)
[2021-12-09 09:07] LABS: HEMATOCRIT 37.7 % (42.0-52.0); HEMOGLOBIN 12.9 g/dl (13.5-17.5); MEAN CORPUSCULAR HEMOGLOBIN 33.2 pg (27.0-33.0); MEAN CORPUSCULAR HGB CONC 34.2 g/dl (32.0-36.5); MEAN CORPUSCULAR VOLUME 96.9 fl (80.0-96.0); PLATELET COUNT, AUTOMATED 197 10^3/uL (150-450); RED BLOOD COUNT 3.89 10^6/uL (4.30-6.10); WHITE BLOOD COUNT 6.7 10^3/uL (4.0-10.0)
[2021-12-09 09:16] VITALS: BP 97/61
[2021-12-09 09:33] LABS: ATYPICAL LYMPH 3 % (0-5); LYMPHOCYTES 13 % (16-44); METAMYELOCYTES 1 % (0-0); MONOCYTES 15 % (0-5); NEUTROPHILS 42 % (28-66)
[2021-12-09 09:34] LABS: OVALOCYTES 2+
[2021-12-09 09:35] LABS: PLATELET ESTIMATE NORMAL (NORMAL)
[2021-12-09 09:42] LABS: ALBUMIN 3.3 GM/DL (3.2-5.2); BILIRUBIN,DIRECT 0.6 MG/DL (0.0-0.2); BILIRUBIN,TOTAL 1.4 MG/DL (0.2-1.0); C REACTIVE PROTEIN QUANTITATIV 11.2 MG/DL (0.00-0.30); CALCIUM LEVEL 9.1 MG/DL (8.8-10.2); CREATININE FOR GFR 1.63 MG/DL (0.70-1.30); FREE T4 0.95 NG/DL (0.76-1.46); GLOMERULAR FILTRATION RATE 45.3 (>49); POTASSIUM SERUM 4.2 MEQ/L (3.5-5.1); THYROID STIMULATING HORMONE 5.87 uIU/ML (0.358-3.740); TOTAL PROTEIN 7.8 GM/DL (6.4-8.2)
[2021-12-09] MEDS ORDERED: ISOVUE-370 76% 100ML VIAL As Ordered ONE (10:00)
[2021-12-09 10:53] LABS: CK-MB VALUE MASS 2.2 NG/ML (<3.6); MB/CK RELATIVE INDEX 1.59 (< OR =4)
[2021-12-09] MEDS ORDERED: PROAAER10 INH (13:20)
[2021-12-09] MEDS ORDERED: INCR1INH INH (13:20)
[2021-12-09 13:30] VITALS: BP 135/80
[2021-12-10] MEDS ORDERED: GABA-1171 PO (17:18)
[2021-12-10] MEDS ORDERED: ASPI81TA26 PO (17:18)
[2021-12-10] MEDS ORDERED: FLUTISP NARES (17:28)
== END 2021-12-09 13:55 | disposition left against medical advice (07) ==
LOC: M ED 08:27
DX: R55 Syncope and collapse (principal); R07.9 Chest pain, unspecified; N17.9 Acute kidney failure, unspecified; R06.02 Shortness of breath; R91.8 Other nonspecific abnormal finding of lung field; R42 Dizziness and giddiness; J44.9 Chronic obstructive pulmonary disease, unspecified; F17.200 Nicotine dependence, unspecified, uncomplicated; F12.10 Cannabis abuse, uncomplicated; Z79.51 Long term (current) use of inhaled steroids; Z79.899 Other long term (current) drug therapy; Z53.29 Procedure and treatment not carried out because of patient's decision for other reasons

== ENCOUNTER 2021-12-10 12:12 | Inpatient (IN) | payer OTHER ==
[~2021-12-10] VITALS: Ht 167.6 cm; Wt 58.5 kg
[~2021-12-10 12:12] MED LIST changes: +PROAAER10 INH
[2021-12-10 14:59] LABS: BASO % 0.7 % (0.0-1.0); EOS % 0.5 % (0.0-3.0); HEMATOCRIT 32.8 % (42.0-52.0); HEMOGLOBIN 11.3 g/dl (13.5-17.5); MEAN CORPUSCULAR HEMOGLOBIN 33.4 pg (27.0-33.0); MEAN CORPUSCULAR HGB CONC 34.5 g/dl (32.0-36.5); MONO # 0.7 10^3/uL (0.0-0.8); MONO % 16.4 % (2.0-8.0); NEUTROPHILS # 2.6 10^3/uL (1.5-8.5); NEUTROPHILS % 57.8 % (36.0-66.0); PLATELET COUNT, AUTOMATED 170 10^3/uL (150-450); RED BLOOD COUNT 3.38 10^6/uL (4.30-6.10); WHITE BLOOD COUNT 4.4 10^3/uL (4.0-10.0)
[2021-12-10 15:17] LABS: ERYTHROCYTE SEDIMENTATION RATE 68 mm/hr (0-20)
[2021-12-10 15:23] LABS: CK-MB VALUE MASS 4.9 NG/ML (<3.6); MB/CK RELATIVE INDEX 2.31 (< OR =4)
[2021-12-10 15:36] LABS: ALBUMIN 2.9 GM/DL (3.2-5.2); ALT/SGPT 13 U/L (12-78); BILIRUBIN,DIRECT 0.3 MG/DL (0.0-0.2); BILIRUBIN,TOTAL 0.6 MG/DL (0.2-1.0); BLOOD UREA NITROGEN 13 MG/DL (7-18); CALCIUM LEVEL 8.1 MG/DL (8.8-10.2); CARBON DIOXIDE LEVEL 28 MEQ/L (21-32); CHLORIDE LEVEL 103 MEQ/L (98-107); CREATININE FOR GFR 0.85 MG/DL (0.70-1.30); GLOMERULAR FILTRATION RATE > 60.0 (>49); GLUCOSE, FASTING 112 MG/DL (70-100); NT-PRO BNP 193 PG/ML (<125); POTASSIUM SERUM 4.1 MEQ/L (3.5-5.1); SODIUM LEVEL 136 MEQ/L (136-145); THYROXINE (T4) 2.9 UG/DL (4.5-12.0)
[2021-12-10] MEDS ORDERED: methylPREDNISolone 125MG 2ML VIAL IV ONE (16:25)
[2021-12-10] MEDS ORDERED: ASPI81TA26 PO (17:18)
[2021-12-10] MEDS ORDERED: GABA-1171 PO (17:18)
[2021-12-10] MEDS ORDERED: ALBUTEROL SULFATE 2.5 MG/0.5 ML INH NEB SOLN NEB PRN (17:25)
[2021-12-10] MEDS ORDERED: FLUTISP NARES (17:28)
[2021-12-10] MEDS: AZITHROMYCIN 250MG TABLET PO SCH (17:47)
[2021-12-10] MEDS: ASPIRIN 81MG ENTERIC TABLET PO SCH (17:47)
[2021-12-10] MEDS ORDERED: HOME MED LIST COMPLETE! XX SCH (18:00)
[2021-12-10] MEDS: IPRATROPIUM 0.5MG/ALBUTEROL 2.5MG INH SOL UD 3ML (DUONEB) NEB SCH (20:15)
[2021-12-10] MEDS ORDERED: traZODone 100 MG TAB PO SCH (21:00)
[2021-12-10 21:55] VITALS: BP 116/68
[2021-12-10] MEDS: GABAPENTIN 100 MG CAP PO SCH (22:35)
[2021-12-10] MEDS ORDERED: cefTRIAXone SOD 1 GM in D5W MINI-BAG PLUS 50 ML IV ONE (23:15)
[2021-12-11 01:13] VITALS: BP 118/72
[2021-12-11] MEDS: NS 1,000 ML IV ONE ×2 (01:36→01:43)
[2021-12-11] MEDS: methylPREDNISolone 40MG 1ML VIAL IV SCH ×2 (01:36→09:10)
[2021-12-11 02:00] VITALS: BP 127/83
[2021-12-11] MEDS: IPRATROPIUM 0.5MG/ALBUTEROL 2.5MG INH SOL UD 3ML (DUONEB) NEB SCH ×2 (02:00→08:16)
[2021-12-11 06:00] VITALS: BP 134/64
[2021-12-11 06:15] LABS: HEMATOCRIT 35.4 % (42.0-52.0); HEMOGLOBIN 12.1 g/dl (13.5-17.5); MEAN CORPUSCULAR HEMOGLOBIN 33.3 pg (27.0-33.0); MEAN CORPUSCULAR HGB CONC 34.2 g/dl (32.0-36.5); MEAN CORPUSCULAR VOLUME 97.5 fl (80.0-96.0); PLATELET COUNT, AUTOMATED 198 10^3/uL (150-450); RED BLOOD COUNT 3.63 10^6/uL (4.30-6.10); WHITE BLOOD COUNT 2.7 10^3/uL (4.0-10.0)
[2021-12-11 06:40] LABS: ALBUMIN 2.6 GM/DL (3.2-5.2); ALT/SGPT 11 U/L (12-78); BILIRUBIN,TOTAL 0.7 MG/DL (0.2-1.0); BLOOD UREA NITROGEN 14 MG/DL (7-18); CALCIUM LEVEL 8.5 MG/DL (8.8-10.2); CARBON DIOXIDE LEVEL 28 MEQ/L (21-32); CHLORIDE LEVEL 106 MEQ/L (98-107); CREATININE FOR GFR 0.87 MG/DL (0.70-1.30); GLOMERULAR FILTRATION RATE > 60.0 (>49); GLUCOSE, FASTING 172 MG/DL (70-100); MAGNESIUM LEVEL 2.1 MG/DL (1.8-2.4); PHOSPHORUS LEVEL 3.9 MG/DL (2.5-4.9); POTASSIUM SERUM 4.8 MEQ/L (3.5-5.1); SODIUM LEVEL 139 MEQ/L (136-145); TOTAL PROTEIN 6.9 GM/DL (6.4-8.2)
[2021-12-11 07:13] LABS: ATYPICAL LYMPH 2 % (0-5); LYMPHOCYTES 23 % (16-44); MONOCYTES 1 % (0-5); NEUTROPHILS 64 % (28-66)
[2021-12-11 07:14] LABS: ANISOCYTOSIS 1+; OVALOCYTES 2+
[2021-12-11 07:15] LABS: PLATELET ESTIMATE NORMAL (NORMAL)
[2021-12-11] MEDS ORDERED: ENOXAPARIN 40MG/0.4ML SYRINGE (J1650 PER 10MG) SC SCH (09:00)
[2021-12-11] MEDS: ASPIRIN 81MG ENTERIC TABLET PO SCH (09:07)
[2021-12-11] MEDS: AZITHROMYCIN 250MG TABLET PO SCH (09:08)
[2021-12-11] MEDS: GABAPENTIN 100 MG CAP PO SCH (09:08)
[2021-12-11] MEDS ORDERED: SPIR1CAP INH (09:32)
[2021-12-11 10:00] VITALS: BP 124/74
[2021-12-11] MEDS ORDERED: AZIT500T5 PO (11:26)
[2021-12-11] MEDS ORDERED: PRED10TA2 PO (11:27)
== END 2021-12-11 13:50 | disposition home or self-care (01) | DRG 192 ==
LOC: M ED 12:12 → M ED INP 17:04 → ENRESERV 19:51 → M MSPAV 21:54
PROVIDERS: ADMIT Internal Medicine; ATTEND Internal Medicine
DX: J44.1 Chronic obstructive pulmonary disease with (acute) exacerbation (principal); R07.89 Other chest pain; F17.200 Nicotine dependence, unspecified, uncomplicated; R59.0 Localized enlarged lymph nodes; G89.29 Other chronic pain; G47.00 Insomnia, unspecified; Z79.82 Long term (current) use of aspirin; Z79.899 Other long term (current) drug therapy; Z79.1 Long term (current) use of non-steroidal anti-inflammatories (NSAID); Z90.2 Acquired absence of lung [part of]; Z85.118 Personal history of other malignant neoplasm of bronchus and lung; T44.3X6A Underdosing of other parasympatholytics [anticholinergics and antimuscarinics] and spasmolytics, initial encounter; Z91.120 Patient's intentional underdosing of medication regimen due to financial hardship

== ENCOUNTER → 2022-11-07 | Outpatient (CLI) | payer OTHER ==
[~2022-11-07] MED LIST changes: +ASPI81TA26 PO; +AZIT500T5 PO; +FLUT50SP17 NARES; +GABA-1171 PO; +PRED10TA2 PO; +SPIR1CAP INH
[2022-11-07 15:21] LABS: BLOOD UREA NITROGEN 10 MG/DL (9-23); CREATININE FOR GFR 1.04 MG/DL (0.70-1.30); GLOMERULAR FILTRATION RATE > 60.0 (>49)
== END ==
LOC: M LAB 14:19
PROVIDERS: ATTEND Nurse Practitioner Family
DX: Z01.812 Encounter for preprocedural laboratory examination (principal)

== ENCOUNTER → 2022-11-13 | Outpatient (CLI) | payer OTHER ==
[~2022-11-13] MED LIST changes: +GASTROGRAFIN SOLUTION 30ML As Ordered ONE; +ISOVUE-370 76% 100ML VIAL As Ordered ONE
== END ==
LOC: M RAD 13:48
PROVIDERS: ATTEND Nurse Practitioner Family
DX: K22.89 Other specified disease of esophagus (principal); R18.8 Other ascites; C15.9 Malignant neoplasm of esophagus, unspecified
CPT/HCPCS: 71260; 74177; Q9963; Q9967

== ENCOUNTER → 2023-01-15 | Outpatient (CLI) | payer OTHER ==
[~2023-01-15] MED LIST changes: +ALBU8.5H; +B-12100010 PO; -GASTROGRAFIN SOLUTION 30ML As Ordered ONE; -ISOVUE-370 76% 100ML VIAL As Ordered ONE; +LEVO25TA5 PO; +PANT40TA29 PO; +RA M500C PO; +TRAM50TA2 PO; +TREL1AER
== END ==
LOC: M PLALAB 10:03
PROVIDERS: ATTEND Registered Nurse
DX: M51.36 Other intervertebral disc degeneration, lumbar region (principal); M54.50 Low back pain, unspecified

== ENCOUNTER 2023-01-22 06:25 | Day surgery (SDC) | payer OTHER ==
[~2023-01-22] VITALS: Ht 165.1 cm; Wt 58.0 kg
[~2023-01-22 06:25] MED LIST changes: +NS 1,000 ML IV ONE
[2023-01-22] MEDS ORDERED: propofoL 200 MG/20 ML VIAL As Ordered ONE (07:20)
[2023-01-22] MEDS ORDERED: LIDOCAINE 2% 100MG/5ML SDV (FOR ANES.) As Ordered ONE (07:20)
[2023-01-22 08:09] VITALS: TEMP 98
[2023-01-22] MEDS ORDERED: ePHEDrine SULFATE 25 MG/5 ML(5MG/ML) SYRINGE As Ordered ONE (08:12)
[2023-01-22] MEDS ORDERED: fentaNYL 100 MCG/2 ML INJECTION As Ordered ONE (08:27)
[2023-01-22 08:34] VITALS: BP 108/57; O2SAT 99
== END 2023-01-22 08:38 | disposition home or self-care (01) ==
LOC: M OPP 06:25
PROVIDERS: ATTEND Surgery
DX: Z86.010 Personal history of colon polyps (principal); K64.9 Unspecified hemorrhoids; C15.9 Malignant neoplasm of esophagus, unspecified; Z08 Encounter for follow-up examination after completed treatment for malignant neoplasm; K22.89 Other specified disease of esophagus; K29.50 Unspecified chronic gastritis without bleeding; Z92.21 Personal history of antineoplastic chemotherapy; Z92.3 Personal history of irradiation; Z79.1 Long term (current) use of non-steroidal anti-inflammatories (NSAID); Z79.51 Long term (current) use of inhaled steroids; Z79.52 Long term (current) use of systemic steroids; Z79.82 Long term (current) use of aspirin; Z79.890 Hormone replacement therapy; Z79.891 Long term (current) use of opiate analgesic; Z79.899 Other long term (current) drug therapy
CPT/HCPCS: 43239; 88305; G0105; J3010

== ENCOUNTER → 2023-02-12 | Outpatient (CLI) | payer OTHER ==
[~2023-02-12] MED LIST changes: -NS 1,000 ML IV ONE
== END ==
LOC: M PLAIMG 07:53
PROVIDERS: ATTEND Orthopaedic Surgery
DX: M54.6 Pain in thoracic spine (principal); M54.50 Low back pain, unspecified

== ENCOUNTER → 2023-02-14 | Outpatient (CLI) | payer OTHER ==
[~2023-02-14] MED LIST changes: +GASTROGRAFIN SOLUTION 30ML As Ordered ONE; +ISOVUE-370 76% 100ML VIAL As Ordered ONE
== END ==
LOC: M RAD 08:26
PROVIDERS: ATTEND Nurse Practitioner Family
DX: C15.9 Malignant neoplasm of esophagus, unspecified (principal)
CPT/HCPCS: 71260; 74177; Q9963; Q9967

== ENCOUNTER → 2023-07-22 | Outpatient (REF) | payer OTHER ==
[~2023-07-22] MED LIST changes: -FLUT50SP17 NARES; +FLUTISP NARES; -GASTROGRAFIN SOLUTION 30ML As Ordered ONE; -ISOVUE-370 76% 100ML VIAL As Ordered ONE
== END ==
LOC: M LAB REF 17:59
PROVIDERS: ATTEND Surgery
DX: S20.359A Superficial foreign body of unspecified front wall of thorax, initial encounter (principal); C15.9 Malignant neoplasm of esophagus, unspecified; W18.30XA Fall on same level, unspecified, initial encounter; Y92.009 Unspecified place in unspecified non-institutional (private) residence as the place of occurrence of the external cause

== ENCOUNTER → 2023-09-24 | Outpatient (CLI) | payer OTHER ==
[2023-09-24 13:15] LABS: BASO % 0.4 % (0.0-1.0); EOS % 0.2 % (0.0-3.0); HEMATOCRIT 39.6 % (42.0-52.0); HEMOGLOBIN 13.1 g/dl (13.5-17.5); LYMPH # 0.9 10^3/uL (1.5-5.0); LYMPH % 18.9 % (24.0-44.0); MEAN CORPUSCULAR HEMOGLOBIN 31.8 pg (27.0-33.0); MEAN CORPUSCULAR HGB CONC 33.1 g/dl (32.0-36.5); MEAN CORPUSCULAR VOLUME 96.1 fl (80.0-96.0); MONO # 0.8 10^3/uL (0.0-0.8); MONO % 15.6 % (2.0-8.0); NEUTROPHILS # 3.2 10^3/uL (1.5-8.5); NEUTROPHILS % 64.5 % (36.0-66.0); PLATELET COUNT, AUTOMATED 181 10^3/uL (150-450); RED BLOOD COUNT 4.12 10^6/uL (4.30-6.10); WHITE BLOOD COUNT 4.9 10^3/uL (4.0-10.0)
[2023-09-24 13:23] LABS: ERYTHROCYTE SEDIMENTATION RATE 97 mm/hr (0-20)
[2023-09-24 13:33] LABS: ALBUMIN 2.9 G/DL (3.2-5.2); ALKALINE PHOSPHATASE 142 U/L (46-116); ALT/SGPT 15 U/L (7.0-40); AST/SGOT 18 U/L (<34); BILIRUBIN,TOTAL 1.2 MG/DL (0.3-1.2); BLOOD UREA NITROGEN 8 MG/DL (9-23); CALCIUM LEVEL 8.4 MG/DL (8.3-10.6); CARBON DIOXIDE LEVEL 29 MMOL/L (20-31); CHLORIDE LEVEL 101 MMOL/L (98-107); CREATININE FOR GFR 0.64 MG/DL (0.70-1.30); GLOMERULAR FILTRATION RATE > 60.0 (>49); GLUCOSE, FASTING 105 MG/DL (74-106); POTASSIUM SERUM 4.1 MMOL/L (3.5-5.1); SODIUM LEVEL 136 MMOL/L (136-145)
== END ==
LOC: M PLAIMG 12:10
PROVIDERS: ATTEND Nurse Practitioner Family
DX: R06.02 Shortness of breath (principal)

== ENCOUNTER → 2023-10-10 | Outpatient (CLI) | payer OTHER | LOC: M RAD 08:59 | PROVIDERS: ATTEND Internal Medicine Pulmonary Disease | DX: R91.8 Other nonspecific abnormal finding of lung field (principal) ==

== ENCOUNTER → 2023-10-31 | Outpatient (CLI) | payer OTHER ==
[~2023-10-31] MED LIST changes: +GASTROGRAFIN SOLUTION 30ML As Ordered ONE; +ISOVUE-370 76% 100ML VIAL As Ordered ONE
== END ==
LOC: M RAD 08:49
PROVIDERS: ATTEND Internal Medicine Hematology & Oncology
DX: C15.9 Malignant neoplasm of esophagus, unspecified (principal)
CPT/HCPCS: 74177; Q9963; Q9967

== ENCOUNTER 2024-02-05 06:15 | Day surgery (SDC) | payer OTHER ==
[~2024-02-05] VITALS: Ht 167.6 cm; Wt 55.2 kg
[~2024-02-05 06:15] MED LIST changes: -GASTROGRAFIN SOLUTION 30ML As Ordered ONE; -ISOVUE-370 76% 100ML VIAL As Ordered ONE
[2024-02-05 07:05] VITALS: O2SAT 97
[2024-02-05] MEDS: NS 1,000 ML IV ONE (07:15)
[2024-02-05] MEDS ORDERED: propofoL 200 MG/20 ML VIAL As Ordered ONE (07:22)
[2024-02-05] MEDS ORDERED: fentaNYL 100 MCG/2 ML INJECTION As Ordered ONE (07:22)
[2024-02-05] MEDS ORDERED: LIDOCAINE 2% 100MG/5ML SDV (FOR ANES.) As Ordered ONE (07:22)
[2024-02-05] MEDS ORDERED: PHENYLephrine 500MCG 5ML (100MCG/ML) SYRINGE As Ordered ONE (07:58)
[2024-02-05 08:10] VITALS: TEMP 97.7
[2024-02-05 08:40] VITALS: BP 137/77
== END 2024-02-05 08:38 | disposition home or self-care (01) ==
LOC: M OPP 06:15
PROVIDERS: ATTEND Surgery
DX: Z12.11 Encounter for screening for malignant neoplasm of colon (principal); K63.5 Polyp of colon; K64.9 Unspecified hemorrhoids; K31.89 Other diseases of stomach and duodenum; K20.90 Esophagitis, unspecified without bleeding; Z85.01 Personal history of malignant neoplasm of esophagus; Z87.891 Personal history of nicotine dependence; Z79.52 Long term (current) use of systemic steroids; Z79.82 Long term (current) use of aspirin; Z79.891 Long term (current) use of opiate analgesic; Z79.899 Other long term (current) drug therapy
CPT/HCPCS: 43239; 45380; 88305; J2371; J3010

== ENCOUNTER → 2024-04-20 | Outpatient (CLI) | payer OTHER ==
[~2024-04-20] MED LIST changes: +GABA-1172 PO; -GABA-282 PO
== END ==
LOC: M PLAIMG 09:09
PROVIDERS: ATTEND Internal Medicine Pulmonary Disease
DX: Z85.118 Personal history of other malignant neoplasm of bronchus and lung (principal)

== ENCOUNTER → 2024-06-03 | Outpatient (CLI) | payer OTHER ==
[~2024-06-03] MED LIST changes: +LIDOCAINE 1% MDV 20ML VIAL As Ordered ONE; +MIDAZOLAM INJ 2MG/2ML VIAL As Ordered ONE; +NS (Normal Saline) 0.9% 1,000 ML IV SCH; +OMEP40CA5; +fentaNYL 100 MCG/2 ML INJECTION As Ordered ONE
[2024-06-03 08:05] VITALS: TEMP 97.8
[2024-06-03 08:32] LABS: HEMATOCRIT 34.9 % (42.0-52.0); HEMOGLOBIN 11.9 g/dl (13.5-17.5); MEAN CORPUSCULAR HEMOGLOBIN 32.9 pg (27.0-33.0); MEAN CORPUSCULAR HGB CONC 34.1 g/dl (32.0-36.5); MEAN CORPUSCULAR VOLUME 96.4 fl (80.0-96.0); PLATELET COUNT, AUTOMATED 131 10^3/uL (150-450); RED BLOOD COUNT 3.62 10^6/uL (4.30-6.10); WHITE BLOOD COUNT 2.6 10^3/uL (4.0-10.0)
[2024-06-03 08:57] LABS: ATYPICAL LYMPH 4 % (0-5); LYMPHOCYTES 28 % (16-44); MONOCYTES 8 % (0-5); NEUTROPHILS 56 % (28-66); PLATELET ESTIMATE DECREASED (NORMAL)
[2024-06-03 09:55] VITALS: BP 109/70; O2SAT 93
== END ==
LOC: M IRPRO 07:56
PROVIDERS: ATTEND Internal Medicine Hematology & Oncology
DX: D61.818 Other pancytopenia (principal)
CPT/HCPCS: 36415; 38222; 77012; 85025; 88300; 88305; 88311; 88313; 99152; J2250; J3010

== ENCOUNTER 2024-07-26 09:20 | Inpatient (IN) | payer OTHER ==
[2024-07-26] VITALS (14 sets, daily range): BP systolic 91–115; BP diastolic 59–77; TEMP 97–98.4; O2SAT 92–100
[~2024-07-26] VITALS: Ht 167.6 cm; Wt 54.8 kg
[~2024-07-26 09:20] MED LIST changes: -LIDOCAINE 1% MDV 20ML VIAL As Ordered ONE; -MIDAZOLAM INJ 2MG/2ML VIAL As Ordered ONE; -NS (Normal Saline) 0.9% 1,000 ML IV SCH; -OMEP40CA5; +OMEP40CA5 PO; +TIOTROPIUM INHALER/CAPSULE (SPIRIVA) INH SCH; -fentaNYL 100 MCG/2 ML INJECTION As Ordered ONE
[2024-07-26] MEDS ORDERED: TRAZ-257 PO (09:36)
[2024-07-26] MEDS: ACETAMINOPHEN 500 MG TAB PO STA (09:46)
[2024-07-26] MEDS: CEFEPIME HCL 2 GM in DEXTROSE 5% (D5W) ADV/MINI-BAG 50 ML IV ONE (10:00)
[2024-07-26 10:05] LABS: INR 1.14; PARTIAL THROMBOPLASTIN TIME 29.6 SECONDS (24.8-34.2); PROTHROMBIN TIME 14.9 SECONDS (12.5-14.5)
[2024-07-26 10:18] LABS: APPEARANCE, URINE HAZY (CLEAR); BACTERIA, URINE AUTO NEGATIVE (NEGATIVE); BILIRUBIN, URINE AUTO 1+ (NEGATIVE); BLOOD, URINE BLOOD NEGATIVE (NEGATIVE); COLOR, URINE AMBER (YELLOW); GLUCOSE, URINE (UA) AUTO NEGATIVE (NEGATIVE); KETONE, URINE AUTO NEGATIVE (NEGATIVE); LEUKOCYTE ESTERASE, URINE AUTO NEGATIVE (NEGATIVE); MUCUS, URINE SMALL (NEGATIVE); NITRITE, URINE AUTO NEGATIVE (NEGATIVE); PROTEIN, URINE AUTO 2+ mg/dL (NEGATIVE); RBC, URINE AUTO 1 /HPF (0-3); SPECIFIC GRAVITY URINE AUTO 1.034 (1.002-1.035); SQUAMOUS EPITHELIAL CELL UR AU 0 /HPF (0-6); WBC, URINE AUTO 3 /HPF (0-3)
[2024-07-26] MEDS: METOPROLOL 5 MG/5 ML VIAL IV SCH (10:30)
[2024-07-26] MEDS ORDERED: ISOVUE-370 76% 100ML VIAL As Ordered ONE (10:33)
[2024-07-26] MEDS: methylPREDNISolone 125MG 2ML VIAL IV ONE (11:02)
[2024-07-26] MEDS: NS 500 ML IV ONE (11:12)
[2024-07-26] MEDS: NS 0.9% IV ONE (12:14)
[2024-07-26] MEDS: [UNRECOGNIZED DRUG - OTHER] IV ONE (12:14)
[2024-07-26] MEDS ORDERED: MAGN400T2 PO (12:20)
[2024-07-26] MEDS ORDERED: HOME MED LIST COMPLETE! XX SCH (12:25)
[2024-07-26 12:27] LABS: BASO % 0.3 % (0.0-1.0); HEMATOCRIT 32.1 % (42.0-52.0); HEMOGLOBIN 10.7 g/dl (13.5-17.5); LYMPH # 0.4 10^3/uL (1.5-5.0); LYMPH % 10.4 % (24.0-44.0); MEAN CORPUSCULAR HEMOGLOBIN 32.1 pg (27.0-33.0); MEAN CORPUSCULAR HGB CONC 33.3 g/dl (32.0-36.5); MEAN CORPUSCULAR VOLUME 96.4 fl (80.0-96.0); MONO # 0.6 10^3/uL (0.0-0.8); NEUTROPHILS # 2.9 10^3/uL (1.5-8.5); PLATELET COUNT, AUTOMATED 120 10^3/uL (150-450); RED BLOOD COUNT 3.33 10^6/uL (4.30-6.10); WHITE BLOOD COUNT 3.9 10^3/uL (4.0-10.0)
[2024-07-26 12:39] LABS: PROCALCITONIN 0.96 ng/ml
[2024-07-26 12:41] LABS: BLOOD UREA NITROGEN 21 MG/DL (9-23); CALCIUM LEVEL 7.8 MG/DL (8.3-10.6); CARBON DIOXIDE LEVEL 27 MMOL/L (20-31); CHLORIDE LEVEL 103 MMOL/L (98-107); CHOLESTEROL LEVEL 120 MG/DL (<200); CHOLESTEROL RISK RATIO 5.15 (<5); CREATININE FOR GFR 0.73 MG/DL (0.70-1.30); FREE T4 0.85 NG/DL (0.89-1.76); GLOMERULAR FILTRATION RATE > 60.0 (>49); GLUCOSE, FASTING 119 MG/DL (74-106); HDL CHOLESTEROL 23.3 MG/DL (>40); LDL CHOLESTEROL 72.9 MG/DL (<100); MAGNESIUM LEVEL 1.8 MG/DL (1.8-2.4); NON-HDL-C 96.7 MG/DL; SODIUM LEVEL 135 MMOL/L (136-145); THYROID STIMULATING HORMONE 2.533 uIU/ML (0.55-4.78); THYROXINE (T4) 5.3 UG/DL (4.5-10.9); TRIGLYCERIDES LEVEL 119 MG/DL (<150)
[2024-07-26 12:42] LABS: CPK CREATINE PHOSPHOKINASE 82 U/L (46-171); MB/CK RELATIVE INDEX 1.21 (< OR =4); PHOSPHORUS LEVEL 3.7 MG/DL (2.4-5.1); POTASSIUM SERUM 4.2 MMOL/L (3.5-5.1)
[2024-07-26 13:12] LABS: ALBUMIN 2.7 G/DL (3.2-5.2); ALKALINE PHOSPHATASE 104 U/L (40-129); ALT/SGPT 11 U/L (7.0-40); AST/SGOT 17 U/L (<34); BILIRUBIN,DIRECT 0.6 MG/DL (<0.4); BILIRUBIN,TOTAL 1.3 MG/DL (0.3-1.2); TOTAL PROTEIN 6.6 G/DL (5.7-8.2)
[2024-07-26] MEDS: predniSONE 20 MG TAB PO SCH (15:15)
[2024-07-26 15:48] LABS: ALBUMIN 2.7 G/DL (3.2-5.2); BILIRUBIN,DIRECT 0.6 MG/DL (<0.4); BILIRUBIN,TOTAL 1.2 MG/DL (0.3-1.2); TOTAL PROTEIN 6.6 G/DL (5.7-8.2)
[2024-07-26] MEDS ORDERED: SYMBICORT 160/4.5MCG INHALER 6GM INH SCH (16:00)
[2024-07-26] MEDS: AZITHROMYCIN 250MG TABLET PO SCH (16:05)
[2024-07-26] MEDS: IPRATROPIUM 0.5MG/ALBUTEROL 2.5MG INH SOL UD 3ML (DUONEB) NEB SCH (16:21)
[2024-07-26] MEDS: NS (Normal Saline) 0.9% 1,000 ML IV STA (17:03)
[2024-07-26] MEDS: cefTRIAXone SOD 1 GM in DEXTROSE 5% (D5W) ADV/MINI-BAG 50 ML IV SCH (17:04)
[2024-07-26] MEDS: ENOXAPARIN 40MG/0.4ML SYRINGE (J1650 PER 10MG) SC SCH (17:22)
[2024-07-26] MEDS: NS (Normal Saline) 0.9% 1,000 ML IV SCH (18:07)
[2024-07-26] MEDS: dilTIAZem 30 MG TAB PO SCH (19:29)
[2024-07-26] MEDS: IPRATROPIUM 0.5MG/ALBUTEROL 2.5MG INH SOL UD 3ML (DUONEB) NEB PRN (21:37)
[2024-07-26] MEDS: traZODone 100 MG TAB PO PRN (22:17)
[2024-07-27] VITALS (34 sets, daily range): BP systolic 94–140; BP diastolic 57–90; PULSE 146; TEMP 97.3–98.2; O2SAT 86–100
[2024-07-27 06:16] LABS: BASO % 0.3 % (0.0-1.0); HEMATOCRIT 29.6 % (42.0-52.0); HEMOGLOBIN 9.7 g/dl (13.5-17.5); LYMPH # 0.3 10^3/uL (1.5-5.0); LYMPH % 9.3 % (24.0-44.0); MEAN CORPUSCULAR HEMOGLOBIN 31.9 pg (27.0-33.0); MEAN CORPUSCULAR HGB CONC 32.8 g/dl (32.0-36.5); MEAN CORPUSCULAR VOLUME 97.4 fl (80.0-96.0); MONO # 0.2 10^3/uL (0.0-0.8); MONO % 6.7 % (2.0-8.0); NEUTROPHILS # 2.6 10^3/uL (1.5-8.5); NEUTROPHILS % 83.1 % (36.0-66.0); PLATELET COUNT, AUTOMATED 111 10^3/uL (150-450); RED BLOOD COUNT 3.04 10^6/uL (4.30-6.10); WHITE BLOOD COUNT 3.1 10^3/uL (4.0-10.0)
[2024-07-27] MEDS: methylPREDNISolone 125MG 2ML VIAL IV SCH (06:26)
[2024-07-27] MEDS: ENOXAPARIN 60MG/0.6ML SYRINGE (J1650 PER 10MG) SC SCH (06:27)
[2024-07-27 07:00] LABS: ALBUMIN 2.4 G/DL (3.2-5.2); ALKALINE PHOSPHATASE 87 U/L (40-129); ALT/SGPT < 9 U/L (7.0-40); AST/SGOT 14 U/L (<34); BILIRUBIN,TOTAL 0.5 MG/DL (0.3-1.2); BLOOD UREA NITROGEN 22 MG/DL (9-23); CARBON DIOXIDE LEVEL 26 MMOL/L (20-31); CHLORIDE LEVEL 109 MMOL/L (98-107); CREATININE FOR GFR 0.55 MG/DL (0.70-1.30); GLOMERULAR FILTRATION RATE > 60.0 (>49); GLUCOSE, FASTING 147 MG/DL (74-106); POTASSIUM SERUM 4.5 MMOL/L (3.5-5.1); SODIUM LEVEL 143 MMOL/L (136-145)
[2024-07-27] MEDS ORDERED: LEVALBUTEROL 1.25MG 0.5ML CONCENTRATE NEB INH PRN (10:25)
[2024-07-27] MEDS: ACETYLCYSTEINE 20% 4 ML VIAL (200MG/ML) INH SCH (10:46)
[2024-07-27] MEDS: LEVALBUTEROL 1.25MG 0.5ML CONCENTRATE NEB INH SCH (10:46)
[2024-07-27] MEDS: guaiFENesin ER TABLET 600 MG TAB PO SCH (11:34)
[2024-07-27] MEDS: ACETAMINOPHEN 325 MG TAB PO PRN (13:25)
[2024-07-27] MEDS: DIGOXIN INJ 0.5 MG/2 ML AMP IV ONE (13:48)
[2024-07-27] MEDS: DIGOXIN INJ 0.5 MG/2 ML AMP IV PRN (15:21)
[2024-07-27] MEDS: BUDESONIDE 180MCG INHALER (PULMICORT FLEXHALER) INH SCH (19:41)
[2024-07-27] MEDS ORDERED: ACETYLCYSTEINE 20% 4 ML VIAL (200MG/ML) INH SCH (20:00)
[2024-07-27] MEDS ORDERED: PROMETHAZINE 25MG/ML 1ML VIAL IV PRN (20:15)
[2024-07-27] MEDS: METOPROLOL 5 MG/5 ML VIAL IV SCH (20:40)
[2024-07-27] MEDS: APIXABAN 5 MG TAB (ELIQUIS) PO SCH (20:45)
[2024-07-27] MEDS: DIGOXIN INJ 0.5 MG/2 ML AMP IV STA (20:46)
[2024-07-28] VITALS (29 sets, daily range): BP systolic 111–179; BP diastolic 73–96; TEMP 97.2–98.6; O2SAT 91–98
[2024-07-28] MEDS: LEVALBUTEROL 1.25MG 0.5ML CONCENTRATE NEB INH PRN (01:13)
[2024-07-28 06:31] LABS: BASO % 0.2 % (0.0-1.0); HEMOGLOBIN 10.8 g/dl (13.5-17.5); LYMPH # 0.4 10^3/uL (1.5-5.0); LYMPH % 7.9 % (24.0-44.0); MEAN CORPUSCULAR HEMOGLOBIN 32.4 pg (27.0-33.0); MEAN CORPUSCULAR HGB CONC 33.8 g/dl (32.0-36.5); MEAN CORPUSCULAR VOLUME 96.1 fl (80.0-96.0); MONO # 0.3 10^3/uL (0.0-0.8); MONO % 5.7 % (2.0-8.0); NEUTROPHILS # 4.3 10^3/uL (1.5-8.5); NEUTROPHILS % 85.2 % (36.0-66.0); PLATELET COUNT, AUTOMATED 141 10^3/uL (150-450); RED BLOOD COUNT 3.33 10^6/uL (4.30-6.10); WHITE BLOOD COUNT 5.1 10^3/uL (4.0-10.0)
[2024-07-28 07:10] LABS: ALBUMIN 2.6 G/DL (3.2-5.2); ALKALINE PHOSPHATASE 93 U/L (40-129); ALT/SGPT 20 U/L (7.0-40); AST/SGOT 28 U/L (<34); BILIRUBIN,TOTAL 0.5 MG/DL (0.3-1.2); BLOOD UREA NITROGEN 22 MG/DL (9-23); CALCIUM LEVEL 8.7 MG/DL (8.3-10.6); CARBON DIOXIDE LEVEL 27 MMOL/L (20-31); CHLORIDE LEVEL 108 MMOL/L (98-107); CREATININE FOR GFR 0.51 MG/DL (0.70-1.30); GLOMERULAR FILTRATION RATE > 60.0 (>49); GLUCOSE, FASTING 122 MG/DL (74-106); POTASSIUM SERUM 4.4 MMOL/L (3.5-5.1); SODIUM LEVEL 144 MMOL/L (136-145); TOTAL PROTEIN 6.2 G/DL (5.7-8.2)
[2024-07-28 09:35] LABS: PROCALCITONIN 0.46 ng/ml
[2024-07-28] MEDS: DIGOXIN 0.25 MG TAB PO SCH (09:35)
[2024-07-28] MEDS ORDERED: ELIQ5TAB PO (10:30)
[2024-07-28] MEDS: METOPROLOL 5 MG/5 ML VIAL IV SCH (20:00)
[2024-07-29] VITALS (28 sets, daily range): BP systolic 120–150; BP diastolic 76–88; TEMP 97.6–98.8; O2SAT 90–97
[2024-07-29 07:10] LABS: BASO % 0.4 % (0.0-1.0); HEMATOCRIT 34.5 % (42.0-52.0); HEMOGLOBIN 11.1 g/dl (13.5-17.5); LYMPH # 0.6 10^3/uL (1.5-5.0); LYMPH % 10.3 % (24.0-44.0); MEAN CORPUSCULAR HEMOGLOBIN 31.5 pg (27.0-33.0); MEAN CORPUSCULAR HGB CONC 32.2 g/dl (32.0-36.5); MONO # 0.3 10^3/uL (0.0-0.8); MONO % 6.1 % (2.0-8.0); NEUTROPHILS # 4.5 10^3/uL (1.5-8.5); NEUTROPHILS % 81.4 % (36.0-66.0); PLATELET COUNT, AUTOMATED 175 10^3/uL (150-450); RED BLOOD COUNT 3.52 10^6/uL (4.30-6.10); WHITE BLOOD COUNT 5.5 10^3/uL (4.0-10.0)
[2024-07-29] MEDS ORDERED: ELIQ5TAB PO (07:11)
[2024-07-29 07:45] LABS: ALBUMIN 2.6 G/DL (3.2-5.2); ALKALINE PHOSPHATASE 98 U/L (40-129); ALT/SGPT 36 U/L (7.0-40); AST/SGOT 32 U/L (<34); BILIRUBIN,TOTAL 0.5 MG/DL (0.3-1.2); BLOOD UREA NITROGEN 23 MG/DL (9-23); CALCIUM LEVEL 8.6 MG/DL (8.3-10.6); CARBON DIOXIDE LEVEL 30 MMOL/L (20-31); CHLORIDE LEVEL 107 MMOL/L (98-107); CREATININE FOR GFR 0.53 MG/DL (0.70-1.30); GLOMERULAR FILTRATION RATE > 60.0 (>49); GLUCOSE, FASTING 113 MG/DL (74-106); POTASSIUM SERUM 4.5 MMOL/L (3.5-5.1); SODIUM LEVEL 144 MMOL/L (136-145); TOTAL PROTEIN 6.4 G/DL (5.7-8.2)
[2024-07-29] MEDS: BUDESONIDE 0.5 MG/2 ML INHALATION SUSPENSION NEB SCH (11:40)
[2024-07-29] MEDS: CEFDINIR 300 MG CAP (OMNICEF) PO SCH (21:10)
[2024-07-30] VITALS (37 sets, daily range): BP systolic 134–156; BP diastolic 79–95; TEMP 97.2–98.8; O2SAT 18–98
[2024-07-30 06:21] LABS: ALBUMIN 2.5 G/DL (3.2-5.2); ALKALINE PHOSPHATASE 91 U/L (40-129); ALT/SGPT 33 U/L (7.0-40); AST/SGOT 22 U/L (<34); BILIRUBIN,TOTAL 0.6 MG/DL (0.3-1.2); BLOOD UREA NITROGEN 22 MG/DL (9-23); CALCIUM LEVEL 8.5 MG/DL (8.3-10.6); CARBON DIOXIDE LEVEL 30 MMOL/L (20-31); CHLORIDE LEVEL 106 MMOL/L (98-107); CREATININE FOR GFR 0.52 MG/DL (0.70-1.30); GLOMERULAR FILTRATION RATE > 60.0 (>49); GLUCOSE, FASTING 119 MG/DL (74-106); POTASSIUM SERUM 4.6 MMOL/L (3.5-5.1); SODIUM LEVEL 143 MMOL/L (136-145)
[2024-07-30] MEDS: dilTIAZem 30 MG TAB PO SCH (18:01)
[2024-07-30] MEDS: ONDANSETRON 4MG 2ML VIAL IV PRN (18:05)
[2024-07-31] VITALS (20 sets, daily range): BP systolic 127–130; BP diastolic 69–78; TEMP 97–98.3; O2SAT 86–95
[2024-07-31] MEDS: FUROSEMIDE 20MG/2ML VIAL IV ONE (08:13)
[2024-07-31 08:29] LABS: ALBUMIN 2.7 G/DL (3.2-5.2); ALKALINE PHOSPHATASE 91 U/L (40-129); ALT/SGPT 27 U/L (7.0-40); AST/SGOT 19 U/L (<34); BILIRUBIN,TOTAL 0.8 MG/DL (0.3-1.2); BLOOD UREA NITROGEN 22 MG/DL (9-23); CALCIUM LEVEL 8.4 MG/DL (8.3-10.6); CARBON DIOXIDE LEVEL 32 MMOL/L (20-31); CHLORIDE LEVEL 103 MMOL/L (98-107); CREATININE FOR GFR 0.54 MG/DL (0.70-1.30); GLOMERULAR FILTRATION RATE > 60.0 (>49); GLUCOSE, FASTING 105 MG/DL (74-106); SODIUM LEVEL 140 MMOL/L (136-145); TOTAL PROTEIN 6.2 G/DL (5.7-8.2)
[2024-07-31 18:06] LABS: URINE STREP PNEUMONIAE ANTIGEN NOT DETECTED (NOT DETECT)
[2024-07-31] MEDS: CALCIUM CARBONATE 500 MG CHEW U/D PO ONE (22:57)
[2024-08-01 07:35] VITALS: BP 125/76; TEMP 97.5; O2SAT 93
[2024-08-01 19:23] VITALS: BP 119/57; TEMP 98.1; O2SAT 97
[2024-08-02 06:04] VITALS: BP 127/69; TEMP 97.3; O2SAT 93
[2024-08-02] MEDS ORDERED: PRED10TA2 PO (10:27)
[2024-08-02] MEDS ORDERED: DIGO0.253 PO (10:27)
[2024-08-02] MEDS ORDERED: DILT30TA PO (10:27)
[2024-08-02] MEDS ORDERED: CEFD300CAP PO (10:27)
[2024-08-02] MEDS ORDERED: VENTAER INH (11:47)
[2024-08-02] MEDS ORDERED: PRED20TA PO (11:49)
[2024-08-02] MEDS ORDERED: ALBU8.5H INH (11:49)
[2024-08-02 12:05] VITALS: BP 117/63
== END 2024-08-02 14:55 | disposition home health service (06) | DRG 871 ==
LOC: M ED 09:20 → EDBD 09:20 → M ED INP 14:25 → M PCU 16:12 → M MS5PR 08-02 05:58
PROVIDERS: ADMIT Internal Medicine; ATTEND Student in an Organized Health Care Education/Training Program
PROC: B246ZZZ Ultrasonography of Right and Left Heart (ICD-10-PCS; principal; 2024-07-27)
DX: A41.9 Sepsis, unspecified organism (principal); J13 Pneumonia due to Streptococcus pneumoniae; J69.0 Pneumonitis due to inhalation of food and vomit; J44.0 Chronic obstructive pulmonary disease with (acute) lower respiratory infection; J44.1 Chronic obstructive pulmonary disease with (acute) exacerbation; I48.92 Unspecified atrial flutter; I24.89 Other forms of acute ischemic heart disease; J91.8 Pleural effusion in other conditions classified elsewhere; R06.89 Other abnormalities of breathing; J43.9 Emphysema, unspecified; I48.91 Unspecified atrial fibrillation; F17.200 Nicotine dependence, unspecified, uncomplicated; I27.20 Pulmonary hypertension, unspecified; Z85.01 Personal history of malignant neoplasm of esophagus; Z85.118 Personal history of other malignant neoplasm of bronchus and lung; Z90.2 Acquired absence of lung [part of]; Z92.21 Personal history of antineoplastic chemotherapy; Z92.3 Personal history of irradiation; Z79.51 Long term (current) use of inhaled steroids; Z79.899 Other long term (current) drug therapy; Z79.01 Long term (current) use of anticoagulants; Z79.52 Long term (current) use of systemic steroids

== ENCOUNTER → 2024-09-20 | Outpatient (CLI) | payer OTHER ==
[~2024-09-20] MED LIST changes: +ALBU8.5H INH; +CEFD300CAP PO; +DIGO0.253 PO; +DILT30TA PO; +ELIQ5TAB PO; +MAGN400T2 PO; +PRED20TA PO; -TIOTROPIUM INHALER/CAPSULE (SPIRIVA) INH SCH; +TRAZ-257 PO; +VENTAER INH
== END ==
LOC: M PLAIMG 08:11
PROVIDERS: ATTEND Internal Medicine Pulmonary Disease
DX: R91.8 Other nonspecific abnormal finding of lung field (principal)

== ENCOUNTER → 2024-09-21 | Outpatient (CLI) | payer OTHER ==
[2024-09-21 11:58] LABS: INR 1.12; PROTHROMBIN TIME 14.7 SECONDS (12.5-14.5)
== END ==
LOC: M LAB 11:04
PROVIDERS: ATTEND Nurse Practitioner Family
DX: I48.91 Unspecified atrial fibrillation (principal)

== ENCOUNTER 2024-10-06 06:59 | Inpatient (IN) | payer OTHER ==
[~2024-10-06] VITALS: Ht 165.1 cm; Wt 65.8 kg
[2024-10-06 07:43] LABS: BASO % 0.6 % (0.0-1.0); EOS % 0.2 % (0.0-3.0); HEMATOCRIT 43.5 % (42.0-52.0); HEMOGLOBIN 14.4 g/dl (13.5-17.5); LYMPH # 0.9 10^3/uL (1.5-5.0); LYMPH % 16.8 % (24.0-44.0); MEAN CORPUSCULAR HEMOGLOBIN 31.2 pg (27.0-33.0); MEAN CORPUSCULAR HGB CONC 33.1 g/dl (32.0-36.5); MEAN CORPUSCULAR VOLUME 94.4 fl (80.0-96.0); MONO # 0.8 10^3/uL (0.0-0.8); MONO % 16.4 % (2.0-8.0); NEUTROPHILS # 3.4 10^3/uL (1.5-8.5); NEUTROPHILS % 65.8 % (36.0-66.0); PLATELET COUNT, AUTOMATED 163 10^3/uL (150-450); RED BLOOD COUNT 4.61 10^6/uL (4.30-6.10); VENOUS BASE EXCESS 1.7 (-2.0-2.0); VENOUS HCO3 28.4 MMOL/L (23.0-27.0); VENOUS O2 SATURATION 43.3 % (60.0-80.0); VENOUS PARTIAL PRESSURE CO2 52.5 mmHg (38.0-50.0); VENOUS PARTIAL PRESSURE O2 25.3 mmHg (30.0-50.0); VENOUS PH 7.351 UNITS (7.330-7.430); VENOUS STANDARD HCO3 24.5 MMOL/L; WHITE BLOOD COUNT 5.1 10^3/uL (4.0-10.0)
[2024-10-06] MEDS: NS (Normal Saline) 0.9% 1,700 ML in IV 1 EA IV ONE (08:08)
[2024-10-06] MEDS: cefTRIAXone SOD 2 GM in DEXTROSE 5% (D5W) ADV/MINI-BAG 50 ML IV ONE (08:08)
[2024-10-06 08:12] LABS: INR 1.5; PARTIAL THROMBOPLASTIN TIME 35.8 SECONDS (24.8-34.2); PROTHROMBIN TIME 18.4 SECONDS (12.5-14.5)
[2024-10-06 09:28] LABS: AMYLASE 47 U/L (30-118)
[2024-10-06 09:40] LABS: PROCALCITONIN 0.11 ng/ml
[2024-10-06] MEDS: IPRATROPIUM 0.5MG/ALBUTEROL 2.5MG INH SOL UD 3ML NEB SCH ×2 (09:45→16:48)
[2024-10-06] MEDS: methylPREDNISolone 125MG 2ML VIAL IV ONE (09:47)
[2024-10-06 09:53] LABS: ALBUMIN 2.7 G/DL (3.2-5.2); ALKALINE PHOSPHATASE 101 U/L (40-129); ALT/SGPT < 9 U/L (7.0-40); AST/SGOT 10 U/L (<34); BILIRUBIN,DIRECT 0.3 MG/DL (<0.4); BILIRUBIN,TOTAL 0.7 MG/DL (0.3-1.2); BLOOD UREA NITROGEN 10 MG/DL (9-23); CALCIUM LEVEL 7.7 MG/DL (8.3-10.6); CARBON DIOXIDE LEVEL 27 MMOL/L (20-31); CHLORIDE LEVEL 102 MMOL/L (98-107); CREATININE FOR GFR 0.66 MG/DL (0.70-1.30); GLOMERULAR FILTRATION RATE > 90.0 (>49); GLUCOSE, FASTING 123 MG/DL (74-106); POTASSIUM SERUM 4.1 MMOL/L (3.5-5.1); SODIUM LEVEL 136 MMOL/L (136-145); TOTAL PROTEIN 6.1 G/DL (5.7-8.2)
[2024-10-06 09:54] LABS: APPEARANCE, URINE CLEAR (CLEAR); BACTERIA, URINE AUTO 1+ (NEGATIVE); BILIRUBIN, URINE AUTO 1+ (NEGATIVE); BLOOD, URINE BLOOD NEGATIVE (NEGATIVE); COLOR, URINE AMBER (YELLOW); GLUCOSE, URINE (UA) AUTO NEGATIVE (NEGATIVE); KETONE, URINE AUTO TRACE mg/dL (NEGATIVE); LEUKOCYTE ESTERASE, URINE AUTO NEGATIVE (NEGATIVE); MUCUS, URINE SMALL (NEGATIVE); NITRITE, URINE AUTO NEGATIVE (NEGATIVE); PROTEIN, URINE AUTO 1+ mg/dL (NEGATIVE); RBC, URINE AUTO 4 /HPF (0-3); SPECIFIC GRAVITY URINE AUTO 1.021 (1.002-1.035); SQUAMOUS EPITHELIAL CELL UR AU 0 /HPF (0-6); WBC, URINE AUTO 7 /HPF (0-3); YEAST LIKE CELL URINE AUTO SMALL
[2024-10-06] MEDS ORDERED: ISOVUE-370 76% 100ML VIAL As Ordered ONE (10:01)
[2024-10-06 10:15] LABS: C REACTIVE PROTEIN QUANTITATIV 14.11 MG/DL (<1.0)
[2024-10-06] MEDS ORDERED: VENTAER INH (10:41)
[2024-10-06] MEDS ORDERED: FLUT1BLS8 INH (10:42)
[2024-10-06] MEDS ORDERED: WARF4TAB51 PO ×2 (10:42)
[2024-10-06] MEDS ORDERED: HOME MED LIST COMPLETE! XX SCH (10:55)
[2024-10-06] MEDS ORDERED: IPRATROPIUM 0.5MG/ALBUTEROL 2.5MG INH SOL UD 3ML NEB PRN (14:55)
[2024-10-06 15:10] VITALS: BP 131/83; TEMP 97.3; O2SAT 91
[2024-10-06 16:00] VITALS: BP 131/84; TEMP 97.3; O2SAT 96
[2024-10-06] MEDS: GABAPENTIN 100 MG CAP PO SCH (16:18)
[2024-10-06 16:34] LABS: INR 1.65; PROTHROMBIN TIME 19.7 SECONDS (12.5-14.5)
[2024-10-06] MEDS ORDERED: WARFARIN SOD 1MG TAB PO SCH (17:00)
[2024-10-06] MEDS ORDERED: CARVedilol 3.125 MG TAB PO SCH (18:10)
[2024-10-06] MEDS: dilTIAZem 60 MG TAB PO SCH (18:15)
[2024-10-06] MEDS: PANTOPRAZOLE 40MG TAB (PROTONIX) PO SCH (18:47)
[2024-10-06] MEDS: DIGOXIN 0.25 MG TAB PO SCH (18:47)
[2024-10-06] MEDS ORDERED: WARFARIN SOD 4MG TAB PO SCH (21:00)
[2024-10-06 21:30] VITALS: BP 105/66; TEMP 97.3; O2SAT 95
[2024-10-06] MEDS: traZODone 100 MG TAB PO SCH (22:07)
[2024-10-06 23:35] VITALS: O2SAT 94
[2024-10-07] VITALS (8 sets, daily range): BP systolic 101–127; BP diastolic 54–72; TEMP 97.7–98.2; O2SAT 92–96
[2024-10-07 06:19] LABS: HEMATOCRIT 35.2 % (42.0-52.0); MEAN CORPUSCULAR HEMOGLOBIN 31.6 pg (27.0-33.0); MEAN CORPUSCULAR HGB CONC 33.8 g/dl (32.0-36.5); MEAN CORPUSCULAR VOLUME 93.4 fl (80.0-96.0); PLATELET COUNT, AUTOMATED 143 10^3/uL (150-450); RED BLOOD COUNT 3.77 10^6/uL (4.30-6.10)
[2024-10-07 06:22] LABS: HEMOGLOBIN 11.9 g/dl (13.5-17.5)
[2024-10-07 06:54] LABS: ALBUMIN 2.8 G/DL (3.2-5.2); ALKALINE PHOSPHATASE 102 U/L (40-129); ALT/SGPT < 9 U/L (7.0-40); AST/SGOT 10 U/L (<34); BILIRUBIN,TOTAL 0.4 MG/DL (0.3-1.2); BLOOD UREA NITROGEN 16 MG/DL (9-23); CALCIUM LEVEL 8.7 MG/DL (8.3-10.6); CARBON DIOXIDE LEVEL 28 MMOL/L (20-31); CHLORIDE LEVEL 107 MMOL/L (98-107); GLOMERULAR FILTRATION RATE > 90.0 (>49); GLUCOSE, FASTING 140 MG/DL (74-106); POTASSIUM SERUM 4.6 MMOL/L (3.5-5.1); PROCALCITONIN 0.12 ng/ml; SODIUM LEVEL 142 MMOL/L (136-145); TOTAL PROTEIN 6.3 G/DL (5.7-8.2)
[2024-10-07] MEDS: TIOTROPIUM BROM 2.5MCG/ACTUATION 4GM INH IH SCH (08:00)
[2024-10-07] MEDS: ADVAIR HFA 230/21MCG INHALER INH SCH (08:00)
[2024-10-07] MEDS: SODIUM CHLORIDE HYPERTONIC 3% 4ML NEB SOL INH SCH (08:00)
[2024-10-07] MEDS ORDERED: WARF4TAB51 PO (08:32)
[2024-10-07] MEDS: cefTRIAXone SOD 1 GM in DEXTROSE 5% (D5W) ADV/MINI-BAG 50 ML IV SCH (08:57)
[2024-10-07] MEDS: predniSONE 20 MG TAB PO SCH (09:03)
[2024-10-07] MEDS ORDERED: XARE20TA PO (10:32)
[2024-10-07] MEDS ORDERED: ELIQ5TAB PO (14:35)
[2024-10-07 16:36] LABS: APPEARANCE, BODY FLUID HAZY (CLEAR); PLEURAL FL COLOR YELLOW (COLORLESS); SOURCE, BODY FLUID PLEURAL
[2024-10-07 16:52] LABS: SOURCE, BODY FLUID ALBUMIN PLEURAL
[2024-10-07 16:57] LABS: SOURCE, BODY FLUID GLUCOSE PLEURAL; SOURCE, BODY FLUID TRIG PLEURAL; TRIGLYCERIDE, BODY FLUID 37 MG/DL (NOT ESTABLISHED)
[2024-10-07 16:58] LABS: LDH, BODY FLUID 119 U/L (NOT ESTABLISHED); SOURCE, BODY FLUID LDH PLEURAL
[2024-10-07 16:59] LABS: AMYLASE, BODY FLUID 25 U/L (NOT ESTABLISHED); CHOLESTEROL, BODY FLUID 71 MG/DL (NOT ESTABLISHED); SOURCE, BODY FLUID AMYLASE PLEURAL; SOURCE, BODY FLUID CHOL PLEURAL
[2024-10-07 17:54] LABS: SOURCE, BODY FLUID TOT PROTEIN PLEURAL; TOTAL PROTEIN, BODY FLUID 3.5 G/DL (NOT ESTABLISHED)
[2024-10-07] MEDS: AZITHROMYCIN 250MG TABLET PO SCH (21:26)
[2024-10-07] MEDS ORDERED: LEVALBUTEROL 1.25 MG 0.5ML CONCENTRATE NEB INH PRN (22:10)
[2024-10-07] MEDS: dilTIAZem 60 MG TAB PO ONE (22:16)
[2024-10-07 22:44] LABS: HEMATOCRIT 35.6 % (42.0-52.0); HEMOGLOBIN 11.7 g/dl (13.5-17.5); LYMPH % 16.4 % (24.0-44.0); MEAN CORPUSCULAR HGB CONC 32.9 g/dl (32.0-36.5); MEAN CORPUSCULAR VOLUME 94.2 fl (80.0-96.0); MONO # 0.6 10^3/uL (0.0-0.8); MONO % 9.3 % (2.0-8.0); NEUTROPHILS # 4.5 10^3/uL (1.5-8.5); NEUTROPHILS % 73.8 % (36.0-66.0); PLATELET COUNT, AUTOMATED 157 10^3/uL (150-450); RED BLOOD COUNT 3.78 10^6/uL (4.30-6.10); WHITE BLOOD COUNT 6.1 10^3/uL (4.0-10.0)
[2024-10-07 22:56] LABS: INR 1.42; PROTHROMBIN TIME 17.6 SECONDS (12.5-14.5)
[2024-10-07 23:13] LABS: DIGOXIN LEVEL 0.8 NG/ML (0.8-2.0)
[2024-10-07 23:14] LABS: BLOOD UREA NITROGEN 19 MG/DL (9-23); CALCIUM LEVEL 8.6 MG/DL (8.3-10.6); CARBON DIOXIDE LEVEL 27 MMOL/L (20-31); CHLORIDE LEVEL 111 MMOL/L (98-107); CREATININE FOR GFR 0.69 MG/DL (0.70-1.30); GLOMERULAR FILTRATION RATE > 90.0 (>49); GLUCOSE, FASTING 130 MG/DL (74-106); MAGNESIUM LEVEL 2.1 MG/DL (1.8-2.4); POTASSIUM SERUM 4.4 MMOL/L (3.5-5.1); SODIUM LEVEL 143 MMOL/L (136-145)
[2024-10-08 01:30] VITALS: BP 89/48; TEMP 97.7; O2SAT 91
[2024-10-08 01:47] VITALS: BP 82/39; O2SAT 92
[2024-10-08] MEDS: IPRATROPIUM 0.5MG/ALBUTEROL 2.5MG INH SOL UD 3ML NEB SCH (01:47)
[2024-10-08] MEDS: MIDODRINE 5 MG TAB PO ONE (02:00)
[2024-10-08 02:52] VITALS: BP 92/48
[2024-10-08 04:02] VITALS: BP 111/58; TEMP 97.5; O2SAT 93
[2024-10-08 06:43] LABS: BASO % 0.2 % (0.0-1.0); HEMATOCRIT 33.8 % (42.0-52.0); HEMOGLOBIN 11.2 g/dl (13.5-17.5); LYMPH # 1.1 10^3/uL (1.5-5.0); LYMPH % 21.9 % (24.0-44.0); MEAN CORPUSCULAR HEMOGLOBIN 31.5 pg (27.0-33.0); MEAN CORPUSCULAR HGB CONC 33.1 g/dl (32.0-36.5); MEAN CORPUSCULAR VOLUME 94.9 fl (80.0-96.0); MONO # 0.5 10^3/uL (0.0-0.8); MONO % 10.7 % (2.0-8.0); NEUTROPHILS # 3.3 10^3/uL (1.5-8.5); NEUTROPHILS % 66.4 % (36.0-66.0); PLATELET COUNT, AUTOMATED 149 10^3/uL (150-450); RED BLOOD COUNT 3.56 10^6/uL (4.30-6.10); WHITE BLOOD COUNT 4.9 10^3/uL (4.0-10.0)
[2024-10-08 07:05] LABS: ALBUMIN 2.7 G/DL (3.2-5.2); ALKALINE PHOSPHATASE 88 U/L (40-129); ALT/SGPT 20 U/L (7.0-40); AST/SGOT 25 U/L (<34); BILIRUBIN,TOTAL 0.3 MG/DL (0.3-1.2); BLOOD UREA NITROGEN 19 MG/DL (9-23); C REACTIVE PROTEIN QUANTITATIV 5.45 MG/DL (<1.0); CALCIUM LEVEL 8.4 MG/DL (8.3-10.6); CARBON DIOXIDE LEVEL 30 MMOL/L (20-31); CHLORIDE LEVEL 111 MMOL/L (98-107); CREATININE FOR GFR 0.67 MG/DL (0.70-1.30); GLOMERULAR FILTRATION RATE > 90.0 (>49); GLUCOSE, FASTING 93 MG/DL (74-106); POTASSIUM SERUM 4.4 MMOL/L (3.5-5.1); SODIUM LEVEL 145 MMOL/L (136-145)
[2024-10-08 08:00] VITALS: BP 118/65; TEMP 97.5; O2SAT 99
[2024-10-08 08:08] VITALS: BP 118/65
[2024-10-08] MEDS ORDERED: PRED20TA PO (09:36)
[2024-10-08] MEDS ORDERED: ALBU2.5V10 INH (09:36)
[2024-10-08] MEDS ORDERED: IPRA0.00 INH (09:36)
[2024-10-08] MEDS ORDERED: CEFD300CAP PO (09:36)
[2024-10-08] MEDS ORDERED: PRED10TA2 PO (09:36)
[2024-10-08] MEDS ORDERED: AZIT-12 PO (09:36)
[2024-10-08] MEDS ORDERED: ALBU8.5H INH (09:36)
[2024-10-08] MEDS ORDERED: DIGO0.253 PO (10:44)
[2024-10-08] MEDS ORDERED: METO25TA4 PO (10:44)
== END 2024-10-08 13:13 | disposition home or self-care (01) | DRG 191 ==
LOC: M ED 06:59 → M ED INP 07:00 → OBSVTOIN 14:13 → M MSPAV 15:31
PROVIDERS: ADMIT Student in an Organized Health Care Education/Training Program; ATTEND Internal Medicine
PROC: 0W9G3ZZ Drainage of Peritoneal Cavity, Percutaneous Approach (ICD-10-PCS; principal; 2024-10-07)
DX: J44.1 Chronic obstructive pulmonary disease with (acute) exacerbation (principal); J90 Pleural effusion, not elsewhere classified; I48.0 Paroxysmal atrial fibrillation; F17.210 Nicotine dependence, cigarettes, uncomplicated; I27.20 Pulmonary hypertension, unspecified; G89.29 Other chronic pain; F39 Unspecified mood [affective] disorder; K21.9 Gastro-esophageal reflux disease without esophagitis; Z71.6 Tobacco abuse counseling; Z79.01 Long term (current) use of anticoagulants; Z79.899 Other long term (current) drug therapy; Z92.3 Personal history of irradiation; Z92.21 Personal history of antineoplastic chemotherapy; Z85.118 Personal history of other malignant neoplasm of bronchus and lung; Z86.003 Personal history of in-situ neoplasm of oral cavity, esophagus and stomach; Z90.2 Acquired absence of lung [part of]

== ENCOUNTER → 2024-10-08 | Outpatient (CLI) | payer OTHER ==
[~2024-10-08] MED LIST changes: +ALBU2.5V10 INH; +AZIT-12 PO; +FLUT1BLS8 INH; +IPRA0.00 INH; +METO25TA4 PO; +WARF4TAB51 PO; +XARE20TA PO
== END ==
LOC: M EKG 13:23
PROVIDERS: ATTEND Internal Medicine
DX: I48.0 Paroxysmal atrial fibrillation (principal)

== ENCOUNTER 2025-02-20 23:25 | Emergency (ER) | payer OTHER ==
[~2025-02-20] VITALS: Ht 165.1 cm; Wt 54.5 kg
[~2025-02-20 23:25] MED LIST changes: +LIDO1ADH93 TOP; -LIDO5DIS41 TOP; +WARF-20
[2025-02-21 04:21] VITALS: BP 104/71; TEMP 97.4
[2025-02-21] MEDS: IPRATROPIUM 0.5 MG/ALBUTEROL 2.5 MG INH SOL UD 3 ML NEB ONE (04:21)
[2025-02-21] MEDS: MORPHINE 2 MG/ML 1 ML VIAL IV ONE (04:21)
[2025-02-21 04:32] LABS: PLATELET COUNT, AUTOMATED 146 10^3/uL (150-450)
[2025-02-21 04:54] LABS: CK-MB VALUE MASS 1.2 NG/ML (<3.6)
[2025-02-21 04:56] LABS: CALCIUM LEVEL 8.1 MG/DL (8.3-10.6); CARBON DIOXIDE LEVEL 32 MMOL/L (20-31); CHLORIDE LEVEL 105 MMOL/L (98-107); CREATININE FOR GFR 0.81 MG/DL (0.70-1.30); GLOMERULAR FILTRATION RATE > 90.0 (>42); MAGNESIUM LEVEL 2.1 MG/DL (1.8-2.4); POTASSIUM SERUM 4.1 MMOL/L (3.5-5.1); SODIUM LEVEL 141 MMOL/L (136-145)
[2025-02-21 05:01] LABS: ATYPICAL LYMPH 14 % (0-5); EOSINOPHILS 2 % (0-3); LYMPHOCYTES 37 % (16-44); MONOCYTES 7 % (0-5); NEUTROPHILS 40 % (28-66)
[2025-02-21 05:02] LABS: PLATELET ESTIMATE NORMAL (NORMAL)
[2025-02-21 05:07] LABS: CPK CREATINE PHOSPHOKINASE 38 U/L (46-171); MB/CK RELATIVE INDEX 3.15 (< OR =4)
[2025-02-21 05:40] VITALS: O2SAT 92
[2025-02-21] MEDS ORDERED: PRED20TA PO (06:17)
[2025-02-21] MEDS ORDERED: LEVO1TAB40 PO (06:18)
== END 2025-02-21 06:28 | disposition home or self-care (01) ==
LOC: M ED 23:25
DX: J44.1 Chronic obstructive pulmonary disease with (acute) exacerbation (principal); R07.89 Other chest pain; J91.8 Pleural effusion in other conditions classified elsewhere; I48.91 Unspecified atrial fibrillation; I10 Essential (primary) hypertension; K21.9 Gastro-esophageal reflux disease without esophagitis; Z79.51 Long term (current) use of inhaled steroids; Z79.2 Long term (current) use of antibiotics; Z79.52 Long term (current) use of systemic steroids; Z79.01 Long term (current) use of anticoagulants; Z79.899 Other long term (current) drug therapy
CPT/HCPCS: 71045; 80048; 82550; 82553; 83735; 83880; 84145; 84484; 85025; 87486; 87581; 87633; 87798; 93005; 96374; 96375; 99284; J1100

== ENCOUNTER 2025-03-29 13:46 | Inpatient (IN) | payer OTHER ==
[~2025-03-29] VITALS: Ht 165.1 cm; Wt 47.6 kg
[~2025-03-29 13:46] MED LIST changes: +LEVO1TAB40 PO
[2025-03-29 14:20] LABS: BASO # 0.0 10^3/uL (0.0-0.2); BASO % 0.4 % (0.0-1.0); EOS # 0.0 10^3/uL (0.0-0.5); EOS % 0.4 % (0.0-3.0); LYMPH # 1.0 10^3/uL (1.5-5.0); LYMPH % 22.5 % (24.0-44.0); MONO # 0.6 10^3/uL (0.0-0.8); MONO % 13.2 % (2.0-8.0); NEUTROPHILS # 2.8 10^3/uL (1.5-8.5); NEUTROPHILS % 62.8 % (36.0-66.0); PLATELET COUNT, AUTOMATED 155 10^3/uL (150-450)
[2025-03-29 14:38] LABS: CALCIUM LEVEL 8.2 MG/DL (8.3-10.6); CARBON DIOXIDE LEVEL 30.0 MMOL/L (20-31); CHLORIDE LEVEL 102.0 MMOL/L (98-107); CREATININE FOR GFR 0.93 MG/DL (0.70-1.30); GLOMERULAR FILTRATION RATE 88.3 (>42); POTASSIUM SERUM 4.3 MMOL/L (3.5-5.1); SODIUM LEVEL 139.0 MMOL/L (136-145)
[2025-03-29] MEDS ORDERED: BUPR150T12 PO (14:38)
[2025-03-29] MEDS ORDERED: PRED5TA (14:38)
[2025-03-29] MEDS ORDERED: XARE20TA (14:38)
[2025-03-29] MEDS: METOPROLOL TART 50 MG TAB PO ONE (15:08)
[2025-03-29] MEDS: ASPIRIN 81 MG CHEWABLE TABLET PO ONE (15:09)
[2025-03-29] MEDS: NS (Normal Saline) 0.9% 1,000 ML IV ONE (15:09)
[2025-03-29 15:14] LABS: INR 1.45
[2025-03-29] MEDS: METOPROLOL 5 MG/5 ML VIAL IV PRN (15:27)
[2025-03-29 15:41] LABS: CK-MB VALUE MASS 1.2 NG/ML (<3.6)
[2025-03-29 15:43] LABS: CPK CREATINE PHOSPHOKINASE 20.0 U/L (46-171); MB/CK RELATIVE INDEX 6.0 (< OR =4)
[2025-03-29] MEDS: DIGOXIN INJ 0.5 MG/2 ML AMP IV STA (15:45)
[2025-03-29] MEDS: MIDODRINE 5 MG TAB PO ONE (17:09)
[2025-03-29] MEDS ORDERED: ELIQ5TAB PO (17:34)
[2025-03-29] MEDS ORDERED: PRED10TA2 PO (18:21)
[2025-03-29] MEDS ORDERED: HOME MED LIST COMPLETE! XX SCH (18:30)
[2025-03-29] MEDS ORDERED: IPRATROPIUM 0.5 MG/2.5 ML (0.02%) SOLN NEB INH PRN (19:20)
[2025-03-29] MEDS ORDERED: LEVALBUTEROL 1.25 MG 0.5ML CONCENTRATE NEB INH PRN (19:20)
[2025-03-29 19:44] LABS: THYROXINE (T4) 5.0 UG/DL (4.5-10.9)
[2025-03-29 19:45] LABS: T UPTAKE 44.4 % (22.5-37.0)
[2025-03-29] MEDS: NICOTINE 14 MG/24 HR TRANSDERMAL TD SCH (21:00)
[2025-03-29] MEDS ORDERED: APIXABAN 5 MG TAB PO SCH (21:00)
[2025-03-29 21:11] VITALS: BP 92/56; TEMP 97.4; O2SAT 96
[2025-03-29] MEDS: DIGOXIN INJ 0.5 MG/2 ML AMP IV SCH (22:44)
[2025-03-29] MEDS: traZODone 50 MG TAB PO ONE (22:45)
[2025-03-29 23:54] VITALS: BP 97/61; TEMP 97.1; O2SAT 99
[2025-03-30 03:55] VITALS: BP 90/59; TEMP 97.2; O2SAT 99
[2025-03-30 05:24] LABS: BASO # 0.0 10^3/uL (0.0-0.2); BASO % 0.3 % (0.0-1.0); EOS # 0.0 10^3/uL (0.0-0.5); EOS % 0.0 % (0.0-3.0); LYMPH # 0.6 10^3/uL (1.5-5.0); LYMPH % 16.2 % (24.0-44.0); MONO # 0.3 10^3/uL (0.0-0.8); MONO % 7.3 % (2.0-8.0); NEUTROPHILS # 2.7 10^3/uL (1.5-8.5); NEUTROPHILS % 75.6 % (36.0-66.0); PLATELET COUNT, AUTOMATED 133 10^3/uL (150-450)
[2025-03-30 05:43] LABS: CK-MB VALUE MASS 1.7 NG/ML (<3.6)
[2025-03-30 05:45] LABS: CALCIUM LEVEL 7.7 MG/DL (8.3-10.6); CARBON DIOXIDE LEVEL 30 MMOL/L (20-31); CHLORIDE LEVEL 105 MMOL/L (98-107); CPK CREATINE PHOSPHOKINASE 21 U/L (46-171); CREATININE FOR GFR 0.80 MG/DL (0.70-1.30); GLOMERULAR FILTRATION RATE > 90.0 (>42); MAGNESIUM LEVEL 2.1 MG/DL (1.8-2.4); MB/CK RELATIVE INDEX 8.09 (< OR =4); POTASSIUM SERUM 4.9 MMOL/L (3.5-5.1); SODIUM LEVEL 140 MMOL/L (136-145)
[2025-03-30] MEDS: MIDODRINE 5 MG TAB PO ONE ×2 (06:53→13:00)
[2025-03-30 07:26] LABS: ALT/SGPT 13 U/L (7.0-40); AST/SGOT 10 U/L (<34)
[2025-03-30 07:29] VITALS: BP 101/66; TEMP 98.3; O2SAT 98
[2025-03-30] MEDS ORDERED: MIDODRINE 5 MG TAB PO SCH (08:00)
[2025-03-30 11:39] VITALS: BP 107/63; TEMP 98.1; O2SAT 96
[2025-03-30] MEDS: FUROSEMIDE injection 100 MG, VIAL 2 BAG 13MM ADAPTER 1 EACH in NS 100 ML IV SCH (12:59)
[2025-03-30 15:22] VITALS: BP 95/54; TEMP 98.3; O2SAT 97
[2025-03-30] MEDS: MIDODRINE 5 MG TAB PO SCH (15:55)
[2025-03-30] MEDS: GABAPENTIN 100 MG CAP PO SCH (15:55)
[2025-03-30] MEDS: RIVAROXABAN 20MG TAB PO SCH (17:53)
[2025-03-30 19:44] VITALS: BP 104/59; TEMP 97; O2SAT 92
[2025-03-30] MEDS: traZODone 25MG PER 1/2 TABLET PO PRN (23:31)
[2025-03-30 23:47] VITALS: BP 101/57; TEMP 97.1; O2SAT 95
[2025-03-31] VITALS (14 sets, daily range): BP systolic 85–114; BP diastolic 53–69; TEMP 96.9–98.9; O2SAT 88–99
[2025-03-31] MEDS: MORPHINE 4 MG/ML 1 ML VIAL IV ONE (03:09)
[2025-03-31 03:37] LABS: BASO # 0.0 10^3/uL (0.0-0.2); BASO % 0.2 % (0.0-1.0); EOS # 0.0 10^3/uL (0.0-0.5); EOS % 0.2 % (0.0-3.0); LYMPH # 0.9 10^3/uL (1.5-5.0); LYMPH % 18.6 % (24.0-44.0); MONO # 0.4 10^3/uL (0.0-0.8); MONO % 8.6 % (2.0-8.0); NEUTROPHILS # 3.4 10^3/uL (1.5-8.5); NEUTROPHILS % 72.0 % (36.0-66.0); PLATELET COUNT, AUTOMATED 130 10^3/uL (150-450)
[2025-03-31 04:12] LABS: ALT/SGPT 17 U/L (7.0-40); AST/SGOT 17 U/L (<34); CALCIUM LEVEL 8.0 MG/DL (8.3-10.6); CARBON DIOXIDE LEVEL 32 MMOL/L (20-31); CHLORIDE LEVEL 102 MMOL/L (98-107); CREATININE FOR GFR 0.76 MG/DL (0.70-1.30); GLOMERULAR FILTRATION RATE > 90.0 (>42); POTASSIUM SERUM 3.9 MMOL/L (3.5-5.1); SODIUM LEVEL 141 MMOL/L (136-145)
[2025-03-31 06:13] LABS: BASO # 0.0 10^3/uL (0.0-0.2); BASO % 0.2 % (0.0-1.0); EOS # 0.0 10^3/uL (0.0-0.5); EOS % 0.4 % (0.0-3.0); LYMPH # 0.8 10^3/uL (1.5-5.0); LYMPH % 18.2 % (24.0-44.0); MONO # 0.5 10^3/uL (0.0-0.8); MONO % 10.6 % (2.0-8.0); NEUTROPHILS # 3.2 10^3/uL (1.5-8.5); NEUTROPHILS % 69.9 % (36.0-66.0); PLATELET COUNT, AUTOMATED 128 10^3/uL (150-450)
[2025-03-31 06:36] LABS: CALCIUM LEVEL 8.1 MG/DL (8.3-10.6); CARBON DIOXIDE LEVEL 32 MMOL/L (20-31); CHLORIDE LEVEL 100 MMOL/L (98-107); CREATININE FOR GFR 0.74 MG/DL (0.70-1.30); GLOMERULAR FILTRATION RATE > 90.0 (>42); MAGNESIUM LEVEL 2.1 MG/DL (1.8-2.4); POTASSIUM SERUM 3.9 MMOL/L (3.5-5.1); SODIUM LEVEL 141 MMOL/L (136-145)
[2025-03-31] MEDS ORDERED: MIDODRINE 5 MG TAB PO ONE (07:40)
[2025-03-31] MEDS: DIGOXIN INJ 0.5 MG/2 ML AMP IV STA (08:35)
[2025-03-31] MEDS: AMIODARONE HCL 150 MG in IV 1 EA IV ONE (08:36)
[2025-03-31] MEDS: METOPROLOL TART 25 MG TABLET PO SCH (12:00)
[2025-03-31] MEDS ORDERED: traZODone 100 MG TAB PO PRN (12:35)
[2025-03-31] MEDS ORDERED: DIGOXIN INJ 0.5 MG/2 ML AMP IV SCH (18:00)
[2025-03-31] MEDS: AMIODARONE HCL 360 MG in IV 1 EA IV SCH (19:38)
[2025-03-31 19:41] LABS: CK-MB VALUE MASS 1.4 NG/ML (<3.6)
[2025-03-31 19:44] LABS: CPK CREATINE PHOSPHOKINASE 20.0 U/L (46-171); MB/CK RELATIVE INDEX 7.0 (< OR =4)
[2025-03-31] MEDS: SYMBICORT 80/4.5MCG INHALER 6GM INH SCH (20:28)
[2025-03-31] MEDS: TIOTROPIUM BROM 2.5MCG/ACTUATION 4GM INH INH SCH (20:28)
[2025-03-31] MEDS: ENOXAPARIN 60 MG/0.6 ML SYRINGE (J1650 PER 10MG) SC SCH (21:27)
[2025-03-31] MEDS ORDERED: NOREPINEPHRINE 4 MG IN D5W 250 ML IVBAG (16 MCG/ML) As Ordered ONE (22:35)
[2025-04-01] MEDS ORDERED: AMIODARONE HCL 360 MG in IV 1 EA IV SCH (01:00)
== END 2025-03-31 22:46 | disposition short-term general hospital (02) | DRG 291 ==
LOC: EDBD 13:46 → M ED 13:46 → M ED INP 16:33 → M PCU 21:01 → M ICU 03-31 19:12
PROVIDERS: ADMIT General Practice; ATTEND General Practice
PROC: B246ZZZ Ultrasonography of Right and Left Heart (ICD-10-PCS; principal; 2025-03-30)
DX: I50.33 Acute on chronic diastolic (congestive) heart failure (principal); R57.8 Other shock; I48.21 Permanent atrial fibrillation; J90 Pleural effusion, not elsewhere classified; J96.11 Chronic respiratory failure with hypoxia; E87.3 Alkalosis; J44.9 Chronic obstructive pulmonary disease, unspecified; G89.29 Other chronic pain; K21.9 Gastro-esophageal reflux disease without esophagitis; F17.210 Nicotine dependence, cigarettes, uncomplicated; F39 Unspecified mood [affective] disorder; R63.4 Abnormal weight loss; R62.7 Adult failure to thrive; I95.89 Other hypotension; Z99.81 Dependence on supplemental oxygen; R63.0 Anorexia; I08.1 Rheumatic disorders of both mitral and tricuspid valves; R53.1 Weakness; Z92.21 Personal history of antineoplastic chemotherapy; Z92.3 Personal history of irradiation; Z90.2 Acquired absence of lung [part of]; Z79.01 Long term (current) use of anticoagulants; Z79.899 Other long term (current) drug therapy; Z85.01 Personal history of malignant neoplasm of esophagus; Z85.118 Personal history of other malignant neoplasm of bronchus and lung

== ENCOUNTER 2025-04-08 12:53 | Emergency (ER) | payer OTHER ==
[~2025-04-08] VITALS: Ht 165.1 cm; Wt 51.8 kg
[~2025-04-08 12:53] MED LIST changes: +BUPR150T12 PO; +PRED5TA; +TREL1AER INH; +XARE20TA
[2025-04-08] MEDS ORDERED: AMIO200T55 PO (13:07)
[2025-04-08 13:27] LABS: BASO # 0.0 10^3/uL (0.0-0.2); BASO % 0.3 % (0.0-1.0); EOS # 0.0 10^3/uL (0.0-0.5); EOS % 0.0 % (0.0-3.0); LYMPH # 0.3 10^3/uL (1.5-5.0); LYMPH % 8.8 % (24.0-44.0); MONO # 0.3 10^3/uL (0.0-0.8); MONO % 9.0 % (2.0-8.0); NEUTROPHILS # 3.0 10^3/uL (1.5-8.5); NEUTROPHILS % 80.8 % (36.0-66.0); PLATELET COUNT, AUTOMATED 230 10^3/uL (150-450)
[2025-04-08 13:53] LABS: ALT/SGPT 26 U/L (7.0-40); AST/SGOT 19 U/L (<34); CALCIUM LEVEL 8.4 MG/DL (8.3-10.6); CARBON DIOXIDE LEVEL 30 MMOL/L (20-31); CHLORIDE LEVEL 100 MMOL/L (98-107); CREATININE FOR GFR 0.70 MG/DL (0.70-1.30); GLOMERULAR FILTRATION RATE > 90.0 (>42); POTASSIUM SERUM 4.5 MMOL/L (3.5-5.1); SODIUM LEVEL 137 MMOL/L (136-145)
[2025-04-08 14:12] LABS: FREE T4 0.79 NG/DL (0.89-1.76)
[2025-04-08 15:45] VITALS: BP 110/68; TEMP 98.4
[2025-04-08 15:46] VITALS: O2SAT 95
== END 2025-04-08 15:53 | disposition home or self-care (01) ==
LOC: EDBD 12:53 → M ED 12:53
DX: I95.89 Other hypotension (principal); R00.1 Bradycardia, unspecified; I25.2 Old myocardial infarction; I48.91 Unspecified atrial fibrillation; I50.22 Chronic systolic (congestive) heart failure; C34.90 Malignant neoplasm of unspecified part of unspecified bronchus or lung; F17.210 Nicotine dependence, cigarettes, uncomplicated; Z79.51 Long term (current) use of inhaled steroids; Z79.52 Long term (current) use of systemic steroids; Z79.01 Long term (current) use of anticoagulants; Z79.899 Other long term (current) drug therapy

== ENCOUNTER 2025-04-09 21:31 | Inpatient (IN) | payer OTHER ==
[~2025-04-09] VITALS: Ht 165.1 cm; Wt 54.0 kg
[~2025-04-09 21:31] MED LIST changes: +AMIO200T55 PO
[2025-04-09 22:22] LABS: PLATELET COUNT, AUTOMATED 214 10^3/uL (150-450)
[2025-04-09 22:49] LABS: ATYPICAL LYMPH 4 % (0-5); LYMPHOCYTES 16 % (16-44); MONOCYTES 7 % (0-5); NEUTROPHILS 71 % (28-66)
[2025-04-09 22:50] LABS: PLATELET ESTIMATE NORMAL (NORMAL)
[2025-04-09 23:41] LABS: ALT/SGPT 20 U/L (7.0-40); AST/SGOT 16 U/L (<34); CALCIUM LEVEL 7.5 MG/DL (8.3-10.6); CARBON DIOXIDE LEVEL 28 MMOL/L (20-31); CHLORIDE LEVEL 102 MMOL/L (98-107); CREATININE FOR GFR 0.88 MG/DL (0.70-1.30); GLOMERULAR FILTRATION RATE > 90.0 (>42); MAGNESIUM LEVEL 1.9 MG/DL (1.8-2.4); POTASSIUM SERUM 4.4 MMOL/L (3.5-5.1); SODIUM LEVEL 139 MMOL/L (136-145)
[2025-04-10] VITALS (8 sets, daily range): BP systolic 108–129; BP diastolic 68–81; TEMP 97.3–98.1; O2SAT 86–90
[2025-04-10] MEDS: NS (Normal Saline) 0.9% 1,000 ML IV ONE (00:01)
[2025-04-10 01:23] LABS: APPEARANCE, URINE CLEAR (CLEAR); BACTERIA, URINE AUTO NEGATIVE (NEGATIVE); BILIRUBIN, URINE AUTO NEGATIVE (NEGATIVE); BLOOD, URINE BLOOD NEGATIVE (NEGATIVE); GLUCOSE, URINE (UA) AUTO 1+ mg/dL (NEGATIVE); KETONE, URINE AUTO NEGATIVE (NEGATIVE); LEUKOCYTE ESTERASE, URINE AUTO NEGATIVE (NEGATIVE); MUCUS, URINE SMALL (NEGATIVE); NITRITE, URINE AUTO NEGATIVE (NEGATIVE); PROTEIN, URINE AUTO NEGATIVE (NEGATIVE); RBC, URINE AUTO 0 /HPF (0-3); SPECIFIC GRAVITY URINE AUTO 1.023 (1.002-1.035); SQUAMOUS EPITHELIAL CELL UR AU 0 /HPF (0-6); UROBILINOGEN, URINE AUTO 4.0 mg/dL (0.0-2.0); WBC, URINE AUTO 1 /HPF (0-3)
[2025-04-10] MEDS: LR 1,000 ML IV SCH (01:57)
[2025-04-10] MEDS ORDERED: XARE20TA PO (03:56)
[2025-04-10] MEDS ORDERED: HOME MED LIST COMPLETE! XX SCH (04:00)
[2025-04-10] MEDS ORDERED: METO1TAB32 PO (04:14)
[2025-04-10 09:20] LABS: BASO # 0.0 10^3/uL (0.0-0.2); BASO % 0.0 % (0.0-1.0); EOS # 0.0 10^3/uL (0.0-0.5); EOS % 0.3 % (0.0-3.0); LYMPH # 0.6 10^3/uL (1.5-5.0); LYMPH % 18.5 % (24.0-44.0); MONO # 0.4 10^3/uL (0.0-0.8); MONO % 11.6 % (2.0-8.0); NEUTROPHILS # 2.4 10^3/uL (1.5-8.5); NEUTROPHILS % 68.7 % (36.0-66.0); PLATELET COUNT, AUTOMATED 229 10^3/uL (150-450)
[2025-04-10 09:40] LABS: ALT/SGPT 19 U/L (7.0-40); AST/SGOT 16 U/L (<34); CALCIUM LEVEL 8.2 MG/DL (8.3-10.6); CARBON DIOXIDE LEVEL 32 MMOL/L (20-31); CHLORIDE LEVEL 103 MMOL/L (98-107); CREATININE FOR GFR 0.81 MG/DL (0.70-1.30); GLOMERULAR FILTRATION RATE > 90.0 (>42); MAGNESIUM LEVEL 2.0 MG/DL (1.8-2.4); POTASSIUM SERUM 4.2 MMOL/L (3.5-5.1); SODIUM LEVEL 142 MMOL/L (136-145)
[2025-04-10] MEDS: buPROPion **XL** 150 MG TABLET PO SCH (09:49)
[2025-04-10] MEDS: MAGNESIUM OXIDE 400 MG TAB PO SCH (09:49)
[2025-04-10] MEDS: AMIODARONE 200 MG TAB PO SCH (09:49)
[2025-04-10] MEDS: predniSONE 10 MG TAB PO SCH (09:49)
[2025-04-10] MEDS: GABAPENTIN 100 MG CAP PO SCH (10:00)
[2025-04-10] MEDS: SYMBICORT 160/4.5MCG INHALER 6GM INH SCH (11:16)
[2025-04-10] MEDS ORDERED: ISOVUE-370 76% 100 ML VIAL As Ordered ONE (13:23)
[2025-04-10] MEDS: RIVAROXABAN 20MG TAB PO SCH (17:34)
[2025-04-10] MEDS: traZODone 100 MG TAB PO SCH (22:01)
[2025-04-11] VITALS (29 sets, daily range): BP systolic 78–123; BP diastolic 53–87; TEMP 97.5–97.7; O2SAT 84–97
[2025-04-11 08:48] LABS: CALCIUM LEVEL 8.0 MG/DL (8.3-10.6); CARBON DIOXIDE LEVEL 32 MMOL/L (20-31); CHLORIDE LEVEL 100 MMOL/L (98-107); CREATININE FOR GFR 0.82 MG/DL (0.70-1.30); GLOMERULAR FILTRATION RATE > 90.0 (>42); MAGNESIUM LEVEL 2.1 MG/DL (1.8-2.4); POTASSIUM SERUM 4.2 MMOL/L (3.5-5.1); SODIUM LEVEL 138 MMOL/L (136-145)
[2025-04-11] MEDS: METOPROLOL TART 25 MG TABLET PO ONE (10:17)
[2025-04-11] MEDS: NS (Normal Saline) 0.9% 1,000 ML IV ONE ×2 (10:40→13:38)
[2025-04-11] MEDS: MIDODRINE 2.5 MG TAB PO ONE (13:53)
[2025-04-12] VITALS (9 sets, daily range): BP systolic 90–138; BP diastolic 55–77; TEMP 97.9–98.8; O2SAT 86–97
[2025-04-12] MEDS: ACETAMINOPHEN 325 MG TAB PO PRN (04:14)
[2025-04-12] MEDS: ALBUTEROL 90 MCG/ACT 8 GM HFA INHALER INH PRN (04:17)
[2025-04-12] MEDS: FUROSEMIDE 20 MG/2 ML VIAL IV ONE (05:20)
[2025-04-12 07:04] LABS: CALCIUM LEVEL 8.5 MG/DL (8.3-10.6); CARBON DIOXIDE LEVEL 29 MMOL/L (20-31); CHLORIDE LEVEL 102 MMOL/L (98-107); CREATININE FOR GFR 0.76 MG/DL (0.70-1.30); GLOMERULAR FILTRATION RATE > 90.0 (>42); MAGNESIUM LEVEL 1.9 MG/DL (1.8-2.4); POTASSIUM SERUM 4.1 MMOL/L (3.5-5.1); SODIUM LEVEL 139 MMOL/L (136-145)
[2025-04-12 11:54] LABS: BASO # 0.0 10^3/uL (0.0-0.2); BASO % 0.3 % (0.0-1.0); EOS # 0.1 10^3/uL (0.0-0.5); EOS % 2.1 % (0.0-3.0); LYMPH # 0.5 10^3/uL (1.5-5.0); LYMPH % 16.0 % (24.0-44.0); MONO # 0.4 10^3/uL (0.0-0.8); MONO % 11.0 % (2.0-8.0); NEUTROPHILS # 2.3 10^3/uL (1.5-8.5); NEUTROPHILS % 69.4 % (36.0-66.0); PLATELET COUNT, AUTOMATED 196 10^3/uL (150-450)
[2025-04-12] MEDS: PANTOPRAZOLE 40MG TAB PO SCH (13:22)
[2025-04-12] MEDS: predniSONE 20 MG TAB PO SCH (13:22)
[2025-04-13] VITALS (17 sets, daily range): BP systolic 99–119; BP diastolic 66–75; TEMP 97.2–97.7; O2SAT 85–98
[2025-04-13] MEDS: GLYCOPYRROLATE INJ 0.2 MG/ML 2 ML VIAL NEB SCH (19:56)
[2025-04-14 05:01] VITALS: BP 119/72; TEMP 97.2; O2SAT 92
[2025-04-14 09:54] LABS: BASO # 0.0 10^3/uL (0.0-0.2); BASO % 0.3 % (0.0-1.0); EOS # 0.0 10^3/uL (0.0-0.5); EOS % 0.3 % (0.0-3.0); LYMPH # 0.6 10^3/uL (1.5-5.0); LYMPH % 16.7 % (24.0-44.0); MONO # 0.4 10^3/uL (0.0-0.8); MONO % 11.3 % (2.0-8.0); NEUTROPHILS # 2.5 10^3/uL (1.5-8.5); NEUTROPHILS % 70.3 % (36.0-66.0); PLATELET COUNT, AUTOMATED 176 10^3/uL (150-450)
[2025-04-14 10:27] LABS: CALCIUM LEVEL 8.5 MG/DL (8.3-10.6); CARBON DIOXIDE LEVEL 30 MMOL/L (20-31); CHLORIDE LEVEL 100 MMOL/L (98-107); CREATININE FOR GFR 0.67 MG/DL (0.70-1.30); GLOMERULAR FILTRATION RATE > 90.0 (>42); POTASSIUM SERUM 4.1 MMOL/L (3.5-5.1); SODIUM LEVEL 138 MMOL/L (136-145)
[2025-04-14 11:58] VITALS: BP 102/70; TEMP 98.1; O2SAT 92
[2025-04-14] MEDS: FAMOTIDINE 20 MG TAB PO ONE (13:11)
[2025-04-14 21:13] VITALS: BP 110/64; TEMP 97.5; O2SAT 96
[2025-04-14] MEDS: PANTOPRAZOLE 40MG TAB PO SCH (22:01)
[2025-04-15] VITALS (11 sets, daily range): BP systolic 94–123; BP diastolic 46–78; TEMP 97.3–97.9; O2SAT 84–99
[2025-04-15 08:45] LABS: BASO # 0.0 10^3/uL (0.0-0.2); BASO % 0.3 % (0.0-1.0); EOS # 0.0 10^3/uL (0.0-0.5); EOS % 0.3 % (0.0-3.0); LYMPH # 0.5 10^3/uL (1.5-5.0); LYMPH % 16.8 % (24.0-44.0); MONO # 0.5 10^3/uL (0.0-0.8); MONO % 15.1 % (2.0-8.0); NEUTROPHILS # 2.0 10^3/uL (1.5-8.5); NEUTROPHILS % 66.8 % (36.0-66.0); PLATELET COUNT, AUTOMATED 171 10^3/uL (150-450)
[2025-04-15 09:13] LABS: CALCIUM LEVEL 8.0 MG/DL (8.3-10.6); CARBON DIOXIDE LEVEL 32 MMOL/L (20-31); CHLORIDE LEVEL 101 MMOL/L (98-107); CREATININE FOR GFR 0.67 MG/DL (0.70-1.30); GLOMERULAR FILTRATION RATE > 90.0 (>42); POTASSIUM SERUM 4.1 MMOL/L (3.5-5.1); SODIUM LEVEL 139 MMOL/L (136-145)
[2025-04-15] MEDS: METOPROLOL TART 25 MG TABLET PO ONE (12:51)
[2025-04-15 13:56] LABS: APPEARANCE, BODY FLUID CLOUDY (CLEAR); PLEURAL FL COLOR RED (COLORLESS); SOURCE, BODY FLUID PLEURAL
[2025-04-15] MEDS: AMIODARONE 200 MG TAB PO ONE (14:43)
[2025-04-15] MEDS: METOPROLOL TART 12.5 MG PER 1/2 TAB PO SCH (21:00)
[2025-04-16 01:07] VITALS: BP 94/58
[2025-04-16 04:04] VITALS: BP 101/62; TEMP 97.9; O2SAT 97
[2025-04-16 12:00] VITALS: BP 87/53; TEMP 97.7; O2SAT 96
[2025-04-16 14:39] VITALS: BP 98/58
[2025-04-16 20:45] VITALS: BP 98/58; TEMP 98.1; O2SAT 95
[2025-04-17 04:04] VITALS: BP 98/61; TEMP 97.5
[2025-04-17 07:52] VITALS: O2SAT 92
[2025-04-17 12:00] VITALS: BP 96/62; TEMP 97.9; O2SAT 91
[2025-04-17] MEDS ORDERED: SENNA 8.6 MG TAB PO PRN (16:50)
[2025-04-17] MEDS ORDERED: BISACODYL 10 MG SUPP PR PRN (16:50)
[2025-04-17] MEDS: MIRALAX *UNIT DOSE* 17 GM PACKET PO PRN (17:11)
[2025-04-17 19:25] VITALS: O2SAT 98
[2025-04-17 19:51] VITALS: BP 93/60; TEMP 97.9; O2SAT 96
[2025-04-17 22:42] VITALS: O2SAT 98
[2025-04-18 03:58] VITALS: BP 119/77; TEMP 98.1; O2SAT 91
[2025-04-18 08:22] VITALS: BP 130/78
[2025-04-18 12:00] VITALS: BP 107/68; TEMP 97.9; O2SAT 94
[2025-04-18] MEDS ORDERED: PRED10TA2 PO (15:05)
[2025-04-18] MEDS ORDERED: PANT40TA29 PO (15:05)
[2025-04-18] MEDS ORDERED: SENN18TA PO (15:05)
[2025-04-18] MEDS ORDERED: BISA10SU PR (15:05)
[2025-04-18] MEDS ORDERED: MIRA33506 PO (15:05)
[2025-04-18] MEDS ORDERED: METO1TAB87 PO (15:05)
[2025-04-18] MEDS ORDERED: ALBU2.5V10 NEB (15:13)
[2025-04-18] MEDS ORDERED: NEBU1EAC74 MC (15:13)
== END 2025-04-18 16:49 | disposition home health service (06) | DRG 186 ==
LOC: M ED 21:31 → M ED INP 21:32 → M MSPAV 04-10 02:32 → OBSVTOIN 04-14 15:42 → UNDODISIN 04-18 16:49
PROVIDERS: ADMIT Student in an Organized Health Care Education/Training Program; ATTEND Student in an Organized Health Care Education/Training Program
PROC: 0W9B3ZX Drainage of Left Pleural Cavity, Percutaneous Approach, Diagnostic (ICD-10-PCS; principal; 2025-04-15)
DX: J90 Pleural effusion, not elsewhere classified (principal); J96.21 Acute and chronic respiratory failure with hypoxia; J44.1 Chronic obstructive pulmonary disease with (acute) exacerbation; E46 Unspecified protein-calorie malnutrition; J98.11 Atelectasis; I48.91 Unspecified atrial fibrillation; K21.9 Gastro-esophageal reflux disease without esophagitis; F32.A Depression, unspecified; F17.210 Nicotine dependence, cigarettes, uncomplicated; B97.0 Adenovirus as the cause of diseases classified elsewhere; E86.0 Dehydration; I95.2 Hypotension due to drugs; B97.10 Unspecified enterovirus as the cause of diseases classified elsewhere; B97.89 Other viral agents as the cause of diseases classified elsewhere; G47.00 Insomnia, unspecified; E83.42 Hypomagnesemia; I10 Essential (primary) hypertension; T44.7X5A Adverse effect of beta-adrenoreceptor antagonists, initial encounter; G89.29 Other chronic pain; E86.1 Hypovolemia; M54.9 Dorsalgia, unspecified; Z92.21 Personal history of antineoplastic chemotherapy; Z92.3 Personal history of irradiation; Z99.81 Dependence on supplemental oxygen; Z98.1 Arthrodesis status; Z85.118 Personal history of other malignant neoplasm of bronchus and lung; Z90.2 Acquired absence of lung [part of]; D70.9 Neutropenia, unspecified; Z85.01 Personal history of malignant neoplasm of esophagus; Z79.01 Long term (current) use of anticoagulants; Z79.899 Other long term (current) drug therapy

== ENCOUNTER 2025-04-20 09:35 | Inpatient (IN) | payer OTHER ==
[2025-04-20] VITALS (17 sets, daily range): BP systolic 76–123; BP diastolic 48–83; TEMP 97.2–97.9; O2SAT 93–100
[~2025-04-20] VITALS: Ht 165.1 cm; Wt 49.7 kg
[~2025-04-20 09:35] MED LIST changes: +BISA10SU PR; +METO1TAB32 PO; +METO1TAB87 PO; +MIRA33506 PO; +NEBU1EAC74 MC; +SENN18TA PO
[2025-04-20 10:14] LABS: VENOUS BASE EXCESS 2.7 (-2.0-2.0); VENOUS HCO3 29.5 MMOL/L (23.0-27.0); VENOUS O2 SATURATION 42.8 % (60.0-80.0); VENOUS PARTIAL PRESSURE CO2 55.4 mmHg (38.0-50.0); VENOUS PARTIAL PRESSURE O2 27.0 mmHg (30.0-50.0); VENOUS PH 7.344 UNITS (7.330-7.430); VENOUS STANDARD HCO3 25.6 MMOL/L; VENOUS TOTAL CO2 31.2 MMOL/L (24.0-28.0)
[2025-04-20 10:21] LABS: BASO # 0.0 10^3/uL (0.0-0.2); BASO % 0.2 % (0.0-1.0); EOS # 0.0 10^3/uL (0.0-0.5); EOS % 0.0 % (0.0-3.0); LYMPH # 0.3 10^3/uL (1.5-5.0); LYMPH % 7.8 % (24.0-44.0); MONO # 0.5 10^3/uL (0.0-0.8); MONO % 12.0 % (2.0-8.0); NEUTROPHILS # 3.2 10^3/uL (1.5-8.5); NEUTROPHILS % 78.3 % (36.0-66.0); PLATELET COUNT, AUTOMATED 175 10^3/uL (150-450)
[2025-04-20] MEDS: NS 0.9% IV STA (10:24)
[2025-04-20] MEDS: [UNRECOGNIZED DRUG - OTHER] IV STA (10:24)
[2025-04-20] MEDS: cefTRIAXone SOD 2 GM in DEXTROSE 5% (D5W) ADV/MINI-BAG 50 ML IV ONE (10:33)
[2025-04-20 10:44] LABS: C REACTIVE PROTEIN QUANTITATIV 5.39 MG/DL (<1.0)
[2025-04-20 10:45] LABS: ALT/SGPT 28 U/L (7.0-40); AST/SGOT 30 U/L (<34); CALCIUM LEVEL 8.1 MG/DL (8.3-10.6); CARBON DIOXIDE LEVEL 33 MMOL/L (20-31); CHLORIDE LEVEL 100 MMOL/L (98-107); CREATININE FOR GFR 0.85 MG/DL (0.70-1.30); GLOMERULAR FILTRATION RATE > 90.0 (>42); POTASSIUM SERUM 4.7 MMOL/L (3.5-5.1); SODIUM LEVEL 140 MMOL/L (136-145)
[2025-04-20 11:04] LABS: INR 2.94
[2025-04-20] MEDS: NS (Normal Saline) 0.9% 1,000 ML IV ONE (12:03)
[2025-04-20] MEDS ORDERED: IPRATROPIUM 0.5 MG/ALBUTEROL 2.5 MG INH SOL UD 3 ML NEB PRN (12:10)
[2025-04-20 13:03] LABS: KETONE, URINE AUTO RFX NEGATIVE (NEGATIVE); LEUKOCYTE ESTERASE UR AUTO RFX NEGATIVE (NEGATIVE); MUCUS, URINE RFX SMALL (NEGATIVE); NITRITE, URINE AUTO RFX NEGATIVE (NEGATIVE); RBC, URINE AUTO RFX 1 /HPF (0-3); SQUAM EPITHELIAL CELL UR AURFX 0 /HPF (0-6); WBC, URINE AUTO RFX 1 /HPF (0-3)
[2025-04-20] MEDS ORDERED: POLY17PO18 PO (13:23)
[2025-04-20] MEDS ORDERED: ALBU2.5V10 INH (13:23)
[2025-04-20] MEDS ORDERED: SENN-188 PO (13:23)
[2025-04-20] MEDS ORDERED: METO1TAB87 PO (13:23)
[2025-04-20] MEDS ORDERED: PANT40TA29 PO (13:23)
[2025-04-20] MEDS ORDERED: PRED10TA2 PO (13:23)
[2025-04-20] MEDS ORDERED: BISA10SU27 PR (13:23)
[2025-04-20] MEDS: MIDODRINE 5 MG TAB PO ONE ×2 (13:39→17:03)
[2025-04-20] MEDS ORDERED: HOME MED LIST COMPLETE! XX SCH (13:40)
[2025-04-20] MEDS: GABAPENTIN 100 MG CAP PO SCH (15:38)
[2025-04-20] MEDS: MIDODRINE 5 MG TAB PO SCH (16:08)
[2025-04-20] MEDS: ALBUTEROL SULFATE 2.5 MG/0.5 ML INH CONCENTRATE NEB SOLN INH PRN (18:14)
[2025-04-20] MEDS: PANTOPRAZOLE 40MG TAB PO SCH (20:17)
[2025-04-20] MEDS: METOPROLOL TART 12.5 MG PER 1/2 TAB PO SCH (20:36)
[2025-04-20] MEDS: ADVAIR HFA 230/21 MCG INHALER INH SCH (20:37)
[2025-04-20] MEDS ORDERED: PANTOPRAZOLE 40MG TAB PO SCH (21:00)
[2025-04-20] MEDS: traZODone 100 MG TAB PO SCH (22:02)
[2025-04-21] VITALS (16 sets, daily range): BP systolic 79–115; BP diastolic 51–69; TEMP 96.3–97.5; O2SAT 94–99
[2025-04-21 05:06] LABS: PLATELET COUNT, AUTOMATED 149 10^3/uL (150-450)
[2025-04-21 05:28] LABS: CALCIUM LEVEL 7.7 MG/DL (8.3-10.6); CARBON DIOXIDE LEVEL 30 MMOL/L (20-31); CHLORIDE LEVEL 104 MMOL/L (98-107); CREATININE FOR GFR 0.70 MG/DL (0.70-1.30); GLOMERULAR FILTRATION RATE > 90.0 (>42); POTASSIUM SERUM 4.5 MMOL/L (3.5-5.1); SODIUM LEVEL 141 MMOL/L (136-145)
[2025-04-21] MEDS: TIOTROPIUM BROM 2.5MCG/ACTUATION 4GM INH INH SCH (07:38)
[2025-04-21] MEDS: MIDODRINE 5 MG TAB PO SCH (08:09)
[2025-04-21] MEDS: buPROPion **XL** 150 MG TABLET PO SCH (08:10)
[2025-04-21] MEDS: predniSONE 10 MG TAB PO SCH (08:11)
[2025-04-21] MEDS: CYANOCOBALAMIN 500 MCG TAB PO SCH (08:12)
[2025-04-21] MEDS: MAGNESIUM OXIDE 400 MG TAB PO SCH (08:14)
[2025-04-21] MEDS: RIVAROXABAN 20MG TAB PO SCH (08:33)
[2025-04-21] MEDS: AMIODARONE 200 MG TAB PO SCH (08:33)
[2025-04-21] MEDS ORDERED: OMEPRAZOLE 20MG CAP PO PRN (09:00)
[2025-04-21 12:35] LABS: LDH LACTATE DEHYDROGENASE 156.0 U/L (120-246)
[2025-04-21 16:59] LABS: CORTISOL AM 21.7 UG/DL (4.3-22.4)
[2025-04-21] MEDS: GABAPENTIN 100 MG CAP PO SCH (20:28)
[2025-04-22] VITALS (18 sets, daily range): BP systolic 91–111; BP diastolic 53–74; TEMP 97–98.8; O2SAT 93–100
[2025-04-22 05:09] LABS: BASO # 0.0 10^3/uL (0.0-0.2); BASO % 0.0 % (0.0-1.0); EOS # 0.0 10^3/uL (0.0-0.5); EOS % 0.0 % (0.0-3.0); LYMPH # 0.4 10^3/uL (1.5-5.0); LYMPH % 10.2 % (24.0-44.0); MONO # 0.4 10^3/uL (0.0-0.8); MONO % 10.2 % (2.0-8.0); NEUTROPHILS # 2.9 10^3/uL (1.5-8.5); NEUTROPHILS % 78.5 % (36.0-66.0); PLATELET COUNT, AUTOMATED 140 10^3/uL (150-450)
[2025-04-22 05:35] LABS: CALCIUM LEVEL 7.7 MG/DL (8.3-10.6); CARBON DIOXIDE LEVEL 34 MMOL/L (20-31); CHLORIDE LEVEL 101 MMOL/L (98-107); CREATININE FOR GFR 0.68 MG/DL (0.70-1.30); GLOMERULAR FILTRATION RATE > 90.0 (>42); POTASSIUM SERUM 4.5 MMOL/L (3.5-5.1); SODIUM LEVEL 139 MMOL/L (136-145)
[2025-04-22 05:38] LABS: CORTISOL AM 4.1 UG/DL (4.3-22.4)
[2025-04-22 09:57] LABS: APPEARANCE, BODY FLUID CLOUDY (CLEAR); PLEURAL FL COLOR RED (COLORLESS); SOURCE, BODY FLUID PLEURAL
[2025-04-22 10:40] LABS: PH BODY FLUID > 7.800 UNITS (NOT ESTABLISHED); SOURCE, BODY FLUID pH PLEURAL
[2025-04-22] MEDS: ALBUTEROL 90 MCG/ACT 8 GM HFA INHALER INH PRN (19:49)
[2025-04-23 03:41] VITALS: BP 97/56; TEMP 97.6; O2SAT 96
[2025-04-23] MEDS: ACETAMINOPHEN 325 MG TAB PO PRN (07:17)
[2025-04-23 07:35] VITALS: BP 95/66; TEMP 98.6; O2SAT 94
[2025-04-23] MEDS: SENNA 8.6 MG TAB PO PRN (08:10)
[2025-04-23] MEDS: MIRALAX *UNIT DOSE* 17 GM PACKET PO PRN (08:10)
[2025-04-23 08:15] VITALS: O2SAT 93
[2025-04-23 11:37] VITALS: TEMP 97.3; O2SAT 92
[2025-04-23] MEDS: BISACODYL 10 MG SUPP PR PRN (16:35)
[2025-04-23 20:18] VITALS: BP 107/72; TEMP 97.9; O2SAT 97
[2025-04-24 04:06] VITALS: BP 90/58; TEMP 98; O2SAT 97
[2025-04-24 07:42] LABS: PLATELET COUNT, AUTOMATED 148 10^3/uL (150-450)
[2025-04-24 08:00] LABS: ATYPICAL LYMPH 8 % (0-5); LYMPHOCYTES 7 % (16-44); MONOCYTES 10 % (0-5); NEUTROPHILS 75 % (28-66); PLATELET ESTIMATE NORMAL (NORMAL)
[2025-04-24] MEDS: predniSONE 20 MG TAB PO SCH (08:08)
[2025-04-24 08:13] LABS: ALT/SGPT 25 U/L (7.0-40); AST/SGOT 17 U/L (<34); CALCIUM LEVEL 7.7 MG/DL (8.3-10.6); CARBON DIOXIDE LEVEL 32 MMOL/L (20-31); CHLORIDE LEVEL 98 MMOL/L (98-107); CREATININE FOR GFR 0.73 MG/DL (0.70-1.30); GLOMERULAR FILTRATION RATE > 90.0 (>42); POTASSIUM SERUM 4.2 MMOL/L (3.5-5.1); SODIUM LEVEL 135 MMOL/L (136-145)
[2025-04-24 11:43] VITALS: BP 90/55; TEMP 98.1; O2SAT 93
[2025-04-24] MEDS: OMEPRAZOLE 20MG CAP PO PRN (14:05)
[2025-04-24 21:18] VITALS: BP 95/57; TEMP 98; O2SAT 97
[2025-04-25 03:22] VITALS: BP 86/58; TEMP 97.9; O2SAT 96
[2025-04-25 06:00] VITALS: BP 94/62
[2025-04-25] MEDS ORDERED: SIMETHICONE 80MG CHEW TAB PO PRN (08:55)
[2025-04-25 11:59] VITALS: BP 94/55; TEMP 98.6; O2SAT 94
[2025-04-25] MEDS ORDERED: GI COCKTAIL 50 ML BTL(HYOSCYAMINE/MAALOX/LIDOCAINE VISCOUS)(1:3:1) PO ONE (12:00)
[2025-04-25 19:46] VITALS: BP 94/53; TEMP 98; O2SAT 96
[2025-04-26 03:44] VITALS: BP 93/57; TEMP 98.2; O2SAT 92
[2025-04-26 06:26] LABS: PLATELET COUNT, AUTOMATED 137 10^3/uL (150-450)
[2025-04-26 06:51] LABS: ALT/SGPT 25 U/L (7.0-40); AST/SGOT 22 U/L (<34); CALCIUM LEVEL 7.5 MG/DL (8.3-10.6); CARBON DIOXIDE LEVEL 32 MMOL/L (20-31); CHLORIDE LEVEL 99 MMOL/L (98-107); CREATININE FOR GFR 0.80 MG/DL (0.70-1.30); GLOMERULAR FILTRATION RATE > 90.0 (>42); MAGNESIUM LEVEL 2.1 MG/DL (1.8-2.4); POTASSIUM SERUM 4.4 MMOL/L (3.5-5.1); SODIUM LEVEL 137 MMOL/L (136-145)
[2025-04-26] MEDS: SENNA 8.6 MG TAB PO SCH (08:05)
[2025-04-26 12:00] VITALS: BP 94/58; TEMP 97.6; O2SAT 97
[2025-04-26] MEDS ORDERED: MIDO5TA PO (13:24)
[2025-04-26] MEDS ORDERED: PRED10TA2 PO (13:24)
[2025-04-26] MEDS ORDERED: GABA-1171 PO (13:24)
[2025-04-26] MEDS: ALBUTEROL 90 MCG/ACT 8 GM HFA INHALER INH SCH (14:40)
[2025-04-26 16:11] VITALS: BP 92/59
[2025-04-27] MEDS ORDERED: predniSONE 10 MG TAB PO SCH (09:00)
== END 2025-04-26 17:40 | disposition home health service (06) | DRG 314 ==
LOC: EDBD 09:35 → M ED 09:35 → M ED INP 09:36 → M ICU 14:26 → OBSVTOIN 04-21 11:24 → M MSPAV 04-22 12:41
PROVIDERS: ADMIT Internal Medicine; ATTEND Internal Medicine
PROC: 0W9B3ZZ Drainage of Left Pleural Cavity, Percutaneous Approach (ICD-10-PCS; principal; 2025-04-22 09:00)
DX: I95.89 Other hypotension (principal); J12.2 Parainfluenza virus pneumonia; J90 Pleural effusion, not elsewhere classified; E46 Unspecified protein-calorie malnutrition; J44.0 Chronic obstructive pulmonary disease with (acute) lower respiratory infection; Z68.1 Body mass index [BMI] 19.9 or less, adult; J44.1 Chronic obstructive pulmonary disease with (acute) exacerbation; R64 Cachexia; I48.0 Paroxysmal atrial fibrillation; M79.2 Neuralgia and neuritis, unspecified; K59.09 Other constipation; F39 Unspecified mood [affective] disorder; K21.9 Gastro-esophageal reflux disease without esophagitis; E88.09 Other disorders of plasma-protein metabolism, not elsewhere classified; G89.29 Other chronic pain; Z85.01 Personal history of malignant neoplasm of esophagus; Z85.118 Personal history of other malignant neoplasm of bronchus and lung; Z90.2 Acquired absence of lung [part of]; M62.84 Sarcopenia; Z87.891 Personal history of nicotine dependence; Z79.01 Long term (current) use of anticoagulants; Z79.899 Other long term (current) drug therapy; Z79.52 Long term (current) use of systemic steroids

== ENCOUNTER 2025-04-28 11:25 | Inpatient (IN) | payer OTHER ==
[~2025-04-28] VITALS: Ht 165.1 cm; Wt 51.7 kg
[~2025-04-28 11:25] MED LIST changes: +BISA10SU27 PR; +MIDO5TA PO; +POLY17PO18 PO; +SENN-188 PO
[2025-04-28 12:08] LABS: BASO # 0.0 10^3/uL (0.0-0.2); BASO % 0.4 % (0.0-1.0); EOS # 0.0 10^3/uL (0.0-0.5); EOS % 0.4 % (0.0-3.0); LYMPH # 0.2 10^3/uL (1.5-5.0); LYMPH % 7.7 % (24.0-44.0); MONO # 0.5 10^3/uL (0.0-0.8); MONO % 16.8 % (2.0-8.0); NEUTROPHILS # 2.0 10^3/uL (1.5-8.5); NEUTROPHILS % 73.2 % (36.0-66.0); PLATELET COUNT, AUTOMATED 142 10^3/uL (150-450)
[2025-04-28 12:35] LABS: CK-MB VALUE MASS < 1.0 NG/ML (<3.6)
[2025-04-28 12:43] LABS: CPK CREATINE PHOSPHOKINASE 15 U/L (46-171)
[2025-04-28 12:45] LABS: INR 3.2
[2025-04-28] MEDS ORDERED: NS (Normal Saline) 0.9% 1,000 ML IV ONE (12:45)
[2025-04-28 12:47] LABS: ALT/SGPT 42 U/L (7.0-40); AST/SGOT 36 U/L (<34); CALCIUM LEVEL 7.3 MG/DL (8.3-10.6); CARBON DIOXIDE LEVEL 27 MMOL/L (20-31); CHLORIDE LEVEL 102 MMOL/L (98-107); CREATININE FOR GFR 0.79 MG/DL (0.70-1.30); GLOMERULAR FILTRATION RATE > 90.0 (>42); POTASSIUM SERUM 4.2 MMOL/L (3.5-5.1); SODIUM LEVEL 138 MMOL/L (136-145)
[2025-04-28] MEDS: NS (Normal Saline) 0.9% 1,000 ML IV ONE (13:00)
[2025-04-28] MEDS ORDERED: ISOVUE-370 76% 100 ML VIAL As Ordered ONE (13:06)
[2025-04-28] MEDS ORDERED: HOME MED LIST COMPLETE! XX SCH (14:10)
[2025-04-28 14:42] LABS: CK-MB VALUE MASS 1.2 NG/ML (<3.6)
[2025-04-28 14:43] LABS: CPK CREATINE PHOSPHOKINASE < 15 U/L (46-171); MB/CK RELATIVE INDEX 0.00 (< OR =4)
[2025-04-28 15:26] LABS: KETONE, URINE AUTO RFX NEGATIVE (NEGATIVE); LEUKOCYTE ESTERASE UR AUTO RFX NEGATIVE (NEGATIVE); NITRITE, URINE AUTO RFX NEGATIVE (NEGATIVE); RBC, URINE AUTO RFX 3 /HPF (0-3); SQUAM EPITHELIAL CELL UR AURFX 0 /HPF (0-6); WBC, URINE AUTO RFX 2 /HPF (0-3)
[2025-04-28] MEDS: MIDODRINE 5 MG TAB PO ONE (17:19)
[2025-04-28] MEDS: NS (Normal Saline) 0.9% 1,000 ML IV SCH (17:20)
[2025-04-28 17:24] LABS: FREE T4 0.74 NG/DL (0.89-1.76)
[2025-04-28] MEDS ORDERED: ALBUTEROL SULFATE 2.5 MG/0.5 ML INH CONCENTRATE NEB SOLN INH PRN (17:40)
[2025-04-28] MEDS ORDERED: BISACODYL 10 MG SUPP PR PRN (17:40)
[2025-04-28] MEDS ORDERED: SENNA 8.6 MG TAB PO PRN (17:40)
[2025-04-28 18:33] VITALS: BP 105/61; TEMP 97.6; O2SAT 96
[2025-04-28 19:51] VITALS: BP 103/60; TEMP 97.3; O2SAT 92
[2025-04-28 20:00] VITALS: BP 103/64; TEMP 97.3; O2SAT 100
[2025-04-28] MEDS: MEGESTROL 40 MG TAB PO ONE (20:34)
[2025-04-28] MEDS: PANTOPRAZOLE 40MG TAB PO SCH (20:34)
[2025-04-28] MEDS: GABAPENTIN 100 MG CAP PO SCH (20:35)
[2025-04-28 21:00] VITALS: O2SAT 100
[2025-04-28] MEDS: traZODone 100 MG TAB PO SCH (21:20)
[2025-04-28] MEDS: PIPERACILLIN/TAZOBACTAM SOD 4.5 GM in DEXTROSE 5% (D5W) ADV/MINI-BAG 50 ML IV SCH (21:22)
[2025-04-28 22:00] VITALS: O2SAT 100
[2025-04-28 23:00] VITALS: O2SAT 100
[2025-04-29] VITALS (24 sets, daily range): BP systolic 88–104; BP diastolic 57–68; TEMP 96.9–98.2; O2SAT 91–100
[2025-04-29] MEDS: LEVOTHYROXINE 25 MCG TABLET (0.025MG) PO SCH (05:49)
[2025-04-29 06:51] LABS: BASO # 0.0 10^3/uL (0.0-0.2); BASO % 0.0 % (0.0-1.0); EOS # 0.0 10^3/uL (0.0-0.5); EOS % 0.0 % (0.0-3.0); LYMPH # 0.2 10^3/uL (1.5-5.0); LYMPH % 11.2 % (24.0-44.0); MONO # 0.2 10^3/uL (0.0-0.8); MONO % 7.3 % (2.0-8.0); NEUTROPHILS # 1.7 10^3/uL (1.5-8.5); NEUTROPHILS % 80.0 % (36.0-66.0); PLATELET COUNT, AUTOMATED 140 10^3/uL (150-450)
[2025-04-29 07:15] LABS: CALCIUM LEVEL 7.0 MG/DL (8.3-10.6); CARBON DIOXIDE LEVEL 29 MMOL/L (20-31); CHLORIDE LEVEL 101 MMOL/L (98-107); CREATININE FOR GFR 0.69 MG/DL (0.70-1.30); GLOMERULAR FILTRATION RATE > 90.0 (>42); POTASSIUM SERUM 4.4 MMOL/L (3.5-5.1); SODIUM LEVEL 136 MMOL/L (136-145)
[2025-04-29 07:19] LABS: CORTISOL AM 10.3 UG/DL (4.3-22.4)
[2025-04-29] MEDS: CYANOCOBALAMIN 500 MCG TAB PO SCH (08:56)
[2025-04-29] MEDS: buPROPion **XL** 150 MG TABLET PO SCH (08:56)
[2025-04-29] MEDS: MAGNESIUM OXIDE 400 MG TAB PO SCH (08:56)
[2025-04-29] MEDS: predniSONE 10 MG TAB PO SCH (08:56)
[2025-04-29] MEDS: MIDODRINE 5 MG TAB PO SCH (08:56)
[2025-04-29] MEDS: AMIODARONE 200 MG TAB PO SCH (08:57)
[2025-04-29] MEDS: RIVAROXABAN 20MG TAB PO SCH (08:57)
[2025-04-29] MEDS: HYDROCORTISONE 100 MG/2 ML VIAL IV SCH (08:57)
[2025-04-29] MEDS: MEGESTROL 40 MG TAB PO SCH (11:38)
[2025-04-29] MEDS: ACETAMINOPHEN *IV* 1,000 MG in IV 1 EA IV ONE (15:36)
[2025-04-29] MEDS ORDERED: ACETAMINOPHEN 325 MG TAB PO PRN (18:00)
[2025-04-29] MEDS: MIRALAX *UNIT DOSE* 17 GM PACKET PO PRN (22:23)
[2025-04-30] VITALS (19 sets, daily range): BP systolic 106–125; BP diastolic 63–75; TEMP 97.1–98.2; O2SAT 87–99
[2025-04-30 04:53] LABS: BASO # 0.0 10^3/uL (0.0-0.2); BASO % 0.0 % (0.0-1.0); EOS # 0.0 10^3/uL (0.0-0.5); EOS % 0.0 % (0.0-3.0); LYMPH # 0.3 10^3/uL (1.5-5.0); LYMPH % 9.6 % (24.0-44.0); MONO # 0.2 10^3/uL (0.0-0.8); MONO % 6.0 % (2.0-8.0); NEUTROPHILS # 2.8 10^3/uL (1.5-8.5); NEUTROPHILS % 83.2 % (36.0-66.0); PLATELET COUNT, AUTOMATED 150 10^3/uL (150-450)
[2025-04-30 05:17] LABS: CALCIUM LEVEL 7.5 MG/DL (8.3-10.6); CARBON DIOXIDE LEVEL 27 MMOL/L (20-31); CHLORIDE LEVEL 105 MMOL/L (98-107); CREATININE FOR GFR 0.68 MG/DL (0.70-1.30); GLOMERULAR FILTRATION RATE > 90.0 (>42); POTASSIUM SERUM 4.1 MMOL/L (3.5-5.1); SODIUM LEVEL 140 MMOL/L (136-145)
[2025-04-30] MEDS ORDERED: HYDROCORTISONE 10 MG TAB PO SCH (06:00)
[2025-04-30] MEDS: HYDROCORTISONE 100 MG/2 ML VIAL IV SCH (09:39)
[2025-05-01] VITALS (8 sets, daily range): BP systolic 107–127; BP diastolic 60–72; TEMP 97.2–98; O2SAT 92–98
[2025-05-01 05:34] LABS: BASO # 0.0 10^3/uL (0.0-0.2); BASO % 0.0 % (0.0-1.0); EOS # 0.0 10^3/uL (0.0-0.5); EOS % 0.0 % (0.0-3.0); LYMPH # 0.3 10^3/uL (1.5-5.0); LYMPH % 8.3 % (24.0-44.0); MONO # 0.3 10^3/uL (0.0-0.8); MONO % 7.1 % (2.0-8.0); NEUTROPHILS # 2.9 10^3/uL (1.5-8.5); NEUTROPHILS % 83.5 % (36.0-66.0); PLATELET COUNT, AUTOMATED 164 10^3/uL (150-450)
[2025-05-01 05:55] LABS: CALCIUM LEVEL 7.7 MG/DL (8.3-10.6); CARBON DIOXIDE LEVEL 29 MMOL/L (20-31); CHLORIDE LEVEL 103 MMOL/L (98-107); CREATININE FOR GFR 0.64 MG/DL (0.70-1.30); GLOMERULAR FILTRATION RATE > 90.0 (>42); POTASSIUM SERUM 3.7 MMOL/L (3.5-5.1); SODIUM LEVEL 139 MMOL/L (136-145)
[2025-05-01] MEDS: HYDROCORTISONE 10 MG TAB PO SCH (08:59)
[2025-05-01] MEDS: IPRATROPIUM 0.5 MG/ALBUTEROL 2.5 MG INH SOL UD 3 ML NEB PRN (16:44)
[2025-05-02 04:23] VITALS: BP 104/65; TEMP 97.8; O2SAT 94
[2025-05-02 06:12] LABS: BASO # 0.0 10^3/uL (0.0-0.2); BASO % 0.0 % (0.0-1.0); EOS # 0.0 10^3/uL (0.0-0.5); EOS % 0.0 % (0.0-3.0); LYMPH # 0.3 10^3/uL (1.5-5.0); LYMPH % 10.5 % (24.0-44.0); MONO # 0.3 10^3/uL (0.0-0.8); MONO % 10.8 % (2.0-8.0); NEUTROPHILS # 2.2 10^3/uL (1.5-8.5); NEUTROPHILS % 77.3 % (36.0-66.0); PLATELET COUNT, AUTOMATED 144 10^3/uL (150-450)
[2025-05-02 06:38] LABS: CALCIUM LEVEL 7.4 MG/DL (8.3-10.6); CARBON DIOXIDE LEVEL 30 MMOL/L (20-31); CHLORIDE LEVEL 102 MMOL/L (98-107); CREATININE FOR GFR 0.71 MG/DL (0.70-1.30); GLOMERULAR FILTRATION RATE > 90.0 (>42); POTASSIUM SERUM 3.7 MMOL/L (3.5-5.1); SODIUM LEVEL 140 MMOL/L (136-145)
[2025-05-02] MEDS ORDERED: MEGE40TA3 PO (08:02)
[2025-05-02] MEDS ORDERED: HYDR-4468 PO (08:02)
[2025-05-02] MEDS ORDERED: LEVO75TAB PO (08:02)
[2025-05-02 10:53] VITALS: BP 136/85
[2025-05-02] MEDS: FUROSEMIDE 20 MG/2 ML VIAL IV ONE (10:53)
== END 2025-05-02 13:41 | disposition home health service (06) | DRG 186 ==
LOC: M ED 11:25 → EDBD 11:25 → M ED INP 16:57 → M PCU 18:26
PROVIDERS: ADMIT General Practice; ATTEND General Practice
DX: J90 Pleural effusion, not elsewhere classified (principal); E43 Unspecified severe protein-calorie malnutrition; J96.11 Chronic respiratory failure with hypoxia; E27.40 Unspecified adrenocortical insufficiency; J98.11 Atelectasis; I48.21 Permanent atrial fibrillation; D61.818 Other pancytopenia; R65.10 Systemic inflammatory response syndrome (SIRS) of non-infectious origin without acute organ dysfunction; J44.9 Chronic obstructive pulmonary disease, unspecified; G89.29 Other chronic pain; K21.9 Gastro-esophageal reflux disease without esophagitis; F39 Unspecified mood [affective] disorder; I95.89 Other hypotension; I25.10 Atherosclerotic heart disease of native coronary artery without angina pectoris; R62.7 Adult failure to thrive; R63.0 Anorexia; F17.200 Nicotine dependence, unspecified, uncomplicated; E03.9 Hypothyroidism, unspecified; G62.9 Polyneuropathy, unspecified; E53.8 Deficiency of other specified B group vitamins; K59.00 Constipation, unspecified; E86.1 Hypovolemia; R53.81 Other malaise; B97.0 Adenovirus as the cause of diseases classified elsewhere; J43.9 Emphysema, unspecified; Z79.52 Long term (current) use of systemic steroids; Z79.899 Other long term (current) drug therapy; Z79.01 Long term (current) use of anticoagulants; Z99.81 Dependence on supplemental oxygen; Z85.01 Personal history of malignant neoplasm of esophagus; Z85.118 Personal history of other malignant neoplasm of bronchus and lung; Z92.21 Personal history of antineoplastic chemotherapy; Z92.3 Personal history of irradiation; Z99.3 Dependence on wheelchair; Z90.2 Acquired absence of lung [part of]

== ENCOUNTER → 2025-05-03 | Outpatient (CLI) | payer OTHER ==
[~2025-05-03] MED LIST changes: +HYDR-4468 PO; +LEVO75TAB PO; +MEGE40TA3 PO
== END ==
LOC: M PLARAD 10:16
PROVIDERS: ATTEND Internal Medicine Pulmonary Disease
DX: J90 Pleural effusion, not elsewhere classified (principal); Z85.118 Personal history of other malignant neoplasm of bronchus and lung; K22.89 Other specified disease of esophagus; R91.8 Other nonspecific abnormal finding of lung field
CPT/HCPCS: 78815; A9552